=== PATIENT | male | born 1960 | race Two or more races ===

== ENCOUNTER → 2019-01-31 | Outpatient (CLI) | payer OTHER ==
[2019-01-31 08:43] LABS: ALBUMIN 3.8 g/dL (3.4-5.0); ALBUMIN/GLOBULIN RATIO 1.1 (1.0-1.7); CALCIUM 9.7 mg/dL (8.5-10.1); CHOLESTEROL/HDL RATIO 3.1; CREATININE 0.9 mg/dL (0.7-1.3); TOTAL BILIRUBIN 0.3 mg/dL (0.2-1.0); TOTAL PROTEIN 7.3 g/dL (6.4-8.2)
[2019-02-01 01:12] LABS: HEMOGLOBIN A1C 7.4 % (4.8-5.6)
== END | disposition home or self-care (01) ==
LOC: LAB 07:32
PROVIDERS: ATTEND Internal Medicine
DX: E11.65 Type 2 diabetes mellitus with hyperglycemia (principal)
CPT/HCPCS: 36415; 80053; 80061; 83036

== ENCOUNTER → 2019-06-23 | Outpatient (CLI) | payer OTHER, MEDICAID ==
--- NOTE | 2019-06-23 12:15 | RAD ---
EXAM: Right hip, 2 views; lumbar spine, 3 views. HISTORY: Pain. COMPARISON: None. FINDINGS: Right hip: Frontal and frog-leg views of the right hip are obtained. There is no fracture, dislocation or subluxation. There is mild marginal superior acetabular spurring. Lumbar spine: 3 views of the lumbar spine are obtained. There is minimal lumbar dextrocurvature. There is no significant listhesis. The vertebral bodies are normal in height and the disc spaces are preserved. There is minimal endplate remodeling and there few small endplate Schmorl's nodes. IMPRESSION: 1. No acute osseous finding. 2. Mild degenerative change involving the lumbar spine and mild right hip osteoarthritis. Electronically signed by: Haley Chance MD (06/23/2019 12:11 PM) [facility]
== END | disposition home or self-care (01) ==
LOC: RAD 08:21
PROVIDERS: ATTEND Internal Medicine
DX: M47.816 Spondylosis without myelopathy or radiculopathy, lumbar region (principal); M16.11 Unilateral primary osteoarthritis, right hip; M76.9 Unspecified enthesopathy, lower limb, excluding foot; M51.46 Schmorl's nodes, lumbar region
CPT/HCPCS: 72100; 73502

== ENCOUNTER → 2019-07-11 | Outpatient (CLI) | payer OTHER, MEDICAID ==
--- NOTE | 2019-07-11 12:41 | RAD ---
CT LOWER EXTREMITY WO RIGHT Indication: Right hip pain. Exposure: One or more of the following individualized dose reduction techniques were utilized for this examination: 1. Automated exposure control 2. Adjustment of the mA and/or kV according to patient size 3. Use of iterative reconstruction technique. Technique: Standard imaging without intravenous contrast. Findings: No evidence of acute fracture or aggressive bone destruction. Mild degenerative changes of the right hip. The visualized soft tissues demonstrate no obvious acute abnormality. IMPRESSION: 1. Mild degenerative changes at the right hip. 2. No definite acute findings. 3. Consider MRI of the right hip for further evaluation, particularly if symptoms do not resolve. Electronically signed by: Stephan Floyd MD (07/11/2019 12:38 PM) [facility]
== END | disposition home or self-care (01) ==
LOC: CT 11:06
PROVIDERS: ATTEND Internal Medicine
DX: M16.11 Unilateral primary osteoarthritis, right hip (principal); Z79.899 Other long term (current) drug therapy
CPT/HCPCS: 73700

== ENCOUNTER → 2019-11-12 | Outpatient (CLI) | payer OTHER, MEDICAID ==
--- NOTE | 2019-11-12 14:38 | KCIC ---
Left lower extremity venous duplex study Clinical History: Lower extremity pain Technique: Using a combination of real time ultrasound imaging and color-flow and pulse Doppler imaging techniques, including spectral analysis, graded compression and augmentation, duplex evaluation of the deep venous system of the left lower extremity was performed. Multiple images were obtained. Findings: There is no sonographic evidence of deep venous thrombosis involving the visualized deep venous structures of the left lower extremity Impression: No evidence of deep venous thrombosis involving the left lower extremity Electronically signed by: Rick Bradley MD (11/12/2019 2:35 PM) [facility]
== END | disposition home or self-care (01) ==
LOC: KCIC US 13:35
PROVIDERS: ATTEND Internal Medicine
DX: M79.605 Pain in left leg (principal); M79.89 Other specified soft tissue disorders
CPT/HCPCS: 93971

== ENCOUNTER → 2021-01-06 | Outpatient (CLI) | payer OTHER, MEDICAID ==
[2021-01-06 08:44] LABS: BASO % 1 % (0-3); EOS # 0.1 x10^3/uL (0.0-0.7); EOS % 2 % (0-3); HEMATOCRIT 38.7 % (39.0-53.0); HEMOGLOBIN 12.9 g/dL (13.0-17.5); LYMPH # 1.4 x10^3/uL (1.0-4.8); LYMPH % 30 % (24-48); MEAN CORPUSCULAR HEMOGLOBIN 28 pg (25-35); MEAN CORPUSCULAR HGB CONC 33 g/dL (31-37); MEAN CORPUSCULAR VOLUME 84 fL (79-100); MONO # 0.5 x10^3/uL (0.0-1.1); MONO % 10 % (0-9); NEUT # 2.6 x10^3/uL (1.8-7.7); NEUT % 57 % (31-73); PLATELET COUNT 147 x10^3/uL (140-400); RED CELL DISTRIBUTION WIDTH 15.4 % (11.5-14.5); WHITE BLOOD COUNT 4.6 x10^3/uL (4.0-11.0)
[2021-01-06 08:58] LABS: ALBUMIN 3.7 g/dL (3.4-5.0); ALBUMIN/GLOBULIN RATIO 0.9 (1.0-1.7); CALCIUM 9.7 mg/dL (8.5-10.1); GFR 76.5; POTASSIUM 4.7 mmol/L (3.5-5.1); TOTAL BILIRUBIN 0.3 mg/dL (0.2-1.0); TOTAL PROTEIN 7.6 g/dL (6.4-8.2)
[2021-01-06 09:26] LABS: % BANDS 4 % (0-9); % EOS 3 % (0-5); % LYMPHS 24 % (24-48); % MONOS 10 % (0-10); % MYELOS 1 % (0-0); % SEGS 58 % (35-66); ANISOCYTOSIS PRESENT; NUCLEATED RBC 1; PLT ESTIMATE ADEQUATE (ADEQUATE)
[2021-01-06 23:15] LABS: HEMOGLOBIN A1C 7.5 % (4.8-5.6)
== END ==
LOC: LAB 08:14
PROVIDERS: ATTEND Podiatrist
DX: L03.115 Cellulitis of right lower limb (principal)
CPT/HCPCS: 36415; 80053; 83036; 85007; 85025

== ENCOUNTER → 2021-01-12 | Outpatient (CLI) | payer OTHER, MEDICAID | LOC: SPEC 16:11 | PROVIDERS: ATTEND Podiatrist | DX: L03.031 Cellulitis of right toe (principal) | CPT/HCPCS: 87071; 87075 ==

== ENCOUNTER 2021-03-05 23:10 | Emergency (ER) | payer OTHER, MEDICAID ==
[~2021-03-05] VITALS: Ht 167.6 cm; Wt 95.4 kg
[2021-03-06 00:35] LABS: BASO % 1 % (0-3); EOS % 0 % (0-3); HEMOGLOBIN 14.6 g/dL (13.0-17.5); LYMPH # 0.3 x10^3/uL (1.0-4.8); LYMPH % 10 % (24-48); MEAN CORPUSCULAR HEMOGLOBIN 28 pg (25-35); MEAN CORPUSCULAR HGB CONC 33 g/dL (31-37); MEAN CORPUSCULAR VOLUME 85 fL (79-100); MONO # 0.3 x10^3/uL (0.0-1.1); MONO % 12 % (0-9); NEUT # 2.2 x10^3/uL (1.8-7.7); NEUT % 78 % (31-73); PLATELET COUNT 146 x10^3/uL (140-400); RED BLOOD COUNT 5.18 x10^6/uL (4.30-5.70); RED CELL DISTRIBUTION WIDTH 15.8 % (11.5-14.5); WHITE BLOOD COUNT 2.8 x10^3/uL (4.0-11.0)
[2021-03-06 01:03] LABS: CALCIUM 9.7 mg/dL (8.5-10.1); CREATININE 1.2 mg/dL (0.7-1.3); POTASSIUM 3.8 mmol/L (3.5-5.1)
[2021-03-06 01:09] LABS: ALBUMIN/GLOBULIN RATIO 1.1 (1.0-1.7); MAGNESIUM 2.3 mg/dL (1.8-2.4); TOTAL BILIRUBIN 0.4 mg/dL (0.2-1.0); TOTAL PROTEIN 7.8 g/dL (6.4-8.2)
[2021-03-06 01:20] LABS: BILIRUBIN,URINE NEGATIVE (NEG); CLARITY,URINE CLEAR; COLOR,URINE STRAW; NITRITE,URINE NEGATIVE (NEG); PH,URINE 5.5 (<5.0-8.0); PROTEIN,URINE NEGATIVE (NEG-TRACE); UROBILINOGEN,URINE 0.2 mg/dL (0.2 mg/dL)
[2021-03-06 01:21] LABS: BACTERIA,URINE 0 /HPF (0-FEW)
--- NOTE | 2021-03-06 01:21 | PHYS DOC ---
General Adult EDM: Chief Complaint: NAUSEA/VOMITING/DIARRHEA HPI: HPI: Patient is a 60 year old [f__sex] who presents with [] Review of Systems: Review of Systems: Constitutional: Denies fever or chills. [] Eyes: Denies change in visual acuity. [] HENT: Denies nasal congestion or sore throat. [] Respiratory: Denies cough or shortness of breath. [] Cardiovascular: Denies chest pain or edema. [] GI: Denies abdominal pain, nausea, vomiting, bloody stools or diarrhea. [] : Denies dysuria. [] Musculoskeletal: Denies back pain or joint pain. [] Integument: Denies rash. [] Neurologic: Denies headache, focal weakness or sensory changes. [] Endocrine: Denies polyuria or polydipsia. [] Lymphatic: Denies swollen glands. [] Psychiatric: Denies depression or anxiety. [] Heart Score: Risk Factors: Risk Factors: DM, Current or recent (<one month) smoker, HTN, HLP, family history of CAD, obesity. Risk Scores: Score 0 - 3: 2.5% MACE over next 6 weeks - Discharge Home Score 4 - 6: 20.3% MACE over next 6 weeks - Admit for Clinical Observation Score 7 - 10: 72.7% MACE over next 6 weeks - Early Invasive Strategies Current Medications: Current Medications Medications (Trade) Dose Ordered Sig/George Start Time Stop Time Status Last Admin Dose Admin Famotidine (Pepcid Vial) 20 mg 1X ONCE 03/06/21 01:30 03/06/21 01:31 Info (CONTRAST GIVEN -- Rx MONITORING) 1 each PRN DAILY PRN 03/06/21 01:30 03/08/21 01:29 Iohexol (Omnipaque 300 Mg/ml) 75 ml 1X ONCE 03/06/21 01:30 03/06/21 01:31 Ondansetron HCl (Zofran) 4 mg 1X ONCE 03/06/21 01:30 03/06/21 01:31 Sodium Chloride 1,000 ml @ 1,000 mls/hr 1X ONCE 03/06/21 01:30 03/06/21 02:29 Allergies: Allergies: Allergies Coded Allergies Type Severity Reaction Last Updated Verified No Known Drug Allergies 03/06/21 No Physical Exam: PE: Constitutional: Well developed, well nourished, no acute distress, non-toxic appearance. [] HENT: Normocephalic, atraumatic, bilateral external ears normal, oropharynx moist, no oral exudates, nose normal. [] Eyes: PERRLA, EOMI, conjunctiva normal, no discharge. [] Neck: Normal range of motion, no tenderness, supple, no stridor. [] Cardiovascular:Heart rate regular rhythm, no murmur [] Lungs & Thorax: Bilateral breath sounds clear to auscultation [] Abdomen: Bowel sounds normal, soft, no tenderness, no masses, no pulsatile masses. [] Skin: Warm, dry, no erythema, no rash. [] Back: No tenderness, no CVA tenderness. [] Extremities: No tenderness, no cyanosis, no clubbing, ROM intact, no edema. [] Neurologic: Alert and oriented X 3, normal motor function, normal sensory function, no focal deficits noted. [] Psychologic: Affect normal, judgement normal, mood normal. [] Current Patient Data: Labs: Laboratory Tests Test 03/06/21 00:00 White Blood Count 2.8 x10^3/uL (4.0-11.0) L Red Blood Count 5.18 x10^6/uL (4.30-5.70) Hemoglobin 14.6 g/dL (13.0-17.5) Hematocrit 44.0 % (39.0-53.0) Mean Corpuscular Volume 85 fL (79-100) Mean Corpuscular Hemoglobin 28 pg (25-35) Mean Corpuscular Hemoglobin Concent 33 g/dL (31-37) Red Cell Distribution Width 15.8 % (11.5-14.5) H Platelet Count 146 x10^3/uL (140-400) Neutrophils (%) (Auto) 78 % (31-73) H Lymphocytes (%) (Auto) 10 % (24-48) L Monocytes (%) (Auto) 12 % (0-9) H Eosinophils (%) (Auto) 0 % (0-3) Basophils (%) (Auto) 1 % (0-3) Neutrophils # (Auto) 2.2 x10^3/uL (1.8-7.7) Lymphocytes # (Auto) 0.3 x10^3/uL (1.0-4.8) L Monocytes # (Auto) 0.3 x10^3/uL (0.0-1.1) Eosinophils # (Auto) 0.0 x10^3/uL (0.0-0.7) Basophils # (Auto) 0.0 x10^3/uL (0.0-0.2) Laboratory Tests 03/06/21 00:00 EKG: EKG: @0050 Sinus tachycardia at 118bpm, NO ST elevation, QRS 110ms, QT/QTc 318/448ms, LAFB Radiology/Procedures: Radiology/Procedures: [] Course & Med Decision Making: Course & Med Decision Making Pertinent Labs and Imaging studies reviewed. (See chart for details) [] Dragon Disclaimer: DragMake My plate Disclaimer: This electronic medical record was generated, in whole or in part, using a voice recognition dictation system. Departure Departure Impression: Primary Impression: Nausea vomiting and diarrhea Additional Impressions: Thyroid nodule Incidental adrenal cortical adenoma Abnormal finding on radiology exam Lactic acidosis Disposition: HOME / SELF CARE / HOMELESS Condition: STABLE Referrals: JASMIN CHO MD (PCP) DIAZ NORMAN MD Patient Instructions: Clear Liquid Diet, Ggkh-kq-[id number], Diarrhea, Ofto-yw-Tcpu, Diet for Diarrhea, Adult, Incidental Abnormal Radiological Finding, Lactic Acid, Lactate, Nausea and Vomiting, Inaf-sy-Ujxl, Viral Gastroenteritis, Cbag-qc-Ighi Additional Instructions: Please give copy of CT results to your doctor for future re-evaluation of thyroid nodule, liver lesions, and adrenal adenoma. Scripts Famotidine (PEPCID) 20 Mg Tablet 20 MG PO BID, #14 TAB Prov: DEBRA SILVER DO 03/06/21 Ondansetron (ONDANSETRON ODT) 4 Mg Tab.rapdis 1 TAB PO PRN Q6-8HRS PRN for NAUSEA, #16 TAB Prov: DEBRA SILVER DO 03/06/21 DEBRA SILVER DO Mar 06, 2021 01:21
[2021-03-06] MEDS ORDERED: ONDANSETRON PF 4 MG/2 ML VIAL. IVP ONE (01:30)
[2021-03-06] MEDS ORDERED: CONTRAST GIVEN. MC PRN (01:30)
[2021-03-06] MEDS ORDERED: IOHEXOL 300 MG/ML 100ML VIAL. IV ONE (01:30)
[2021-03-06] MEDS ORDERED: IV NORMAL SALINE 1000ML BAG 1,000 ML IV ONE (01:30)
[2021-03-06] MEDS ORDERED: FAMOTIDINE 20 MG/2 ML VIAL IVP ONE (01:30)
--- NOTE | 2021-03-06 02:00 | EKG ---
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
--- NOTE | 2021-03-06 02:29 | RAD ---
CT CHEST+ABD+PELVIS W History: Cough. Fever. Abdominal pain. Technique: CT of the chest, abdomen and pelvis were performed with intravenous contrast. Coronal and sagittal reconstructions were performed. Exposure: One or more of the following individualized dose reduction techniques were utilized for thi s examination: 1. Automated exposure control 2. Adjustment of the mA and/or kV according to patient size 3. Use of iterative reconstruction technique. Comparison: None Findings: Chest: Right thyroid nodule measures 1.1 cm. Small hiatal hernia. Small mediastinal lymph nodes. Athe romatous plaque within the aorta. Coronary artery calcifications. No consolidation. Tiny right pleural effusion. No pneumothorax. Scattered linear atelectasis. Calcifi ed right middle lobe pulmonary nodule, likely prior granulomatous disease. Abdomen and pelvis: Small hepatic hypodensities largest within the right posterior hepatic lobe measu res 0.7 cm. The spleen, pancreas and gallbladder are unremarkable. No biliary ductal dilatation. Smal l right adrenal myelolipoma measures 0.9 cm. Right renal cyst measures 1.4 cm. No hydronephrosis. Moderate proximal and mid colonic stool burden. Normal appendix. No evidence of bowel obstruction. No pathologic lymphadenopathy. No ascites. Mild atheromatous plaque within the nonaneurysmal abdominal aorta and branch vessels. Bones: No pathologic osseous lesions. Impression: Chest CT: 1. No acute thoracic pathology. 2. Scattered linear atelectasis. 3. Right thyroid nodule. Abdomen and pelvis CT: 1. No acute abdominal or pelvic pathology. 2. Small right hepatic lobe hypodensities, likely benign cysts or hemangiomas in the absence of conc wolfgang for malignancy. Electronically signed by: Jorge Tay DO (03/06/2021 2:27 AM) [facility]
[2021-03-06] MEDS ORDERED: ONDA4TAB12 PO (02:54)
[2021-03-06] MEDS ORDERED: FAMO-63 PO (02:54)
[2021-03-06 03:02] VITALS: BP 121/59
== END 2021-03-06 03:24 | disposition home or self-care (01) ==
LOC: ER 23:10
DX: D35.00 Benign neoplasm of unspecified adrenal gland (principal); R11.2 Nausea with vomiting, unspecified; R19.7 Diarrhea, unspecified; E04.1 Nontoxic single thyroid nodule; R93.89 Abnormal findings on diagnostic imaging of other specified body structures; E87.2 Acidosis
CPT/HCPCS: 36415; 71260; 74177; 80053; 81001; 82553; 83605; 83690; 83735; 84484; 85025; 93005; 96361; 96374; 96375; 99285; J2405; J3490; J7030; Q9967

== ENCOUNTER → 2021-04-22 | Outpatient (CLI) | payer OTHER, MEDICAID ==
[~2021-04-22] MED LIST: FAMO-63 PO; ONDA4TAB12 PO
[2021-04-22 08:05] LABS: BASO % 1 % (0-3); EOS # 0.1 x10^3/uL (0.0-0.7); EOS % 2 % (0-3); HEMATOCRIT 38.5 % (39.0-53.0); HEMOGLOBIN 12.6 g/dL (13.0-17.5); LYMPH # 1.2 x10^3/uL (1.0-4.8); LYMPH % 27 % (24-48); MEAN CORPUSCULAR HEMOGLOBIN 28 pg (25-35); MEAN CORPUSCULAR HGB CONC 33 g/dL (31-37); MEAN CORPUSCULAR VOLUME 85 fL (79-100); MONO # 0.5 x10^3/uL (0.0-1.1); MONO % 10 % (0-9); NEUT # 2.7 x10^3/uL (1.8-7.7); NEUT % 61 % (31-73); PLATELET COUNT 140 x10^3/uL (140-400); RED BLOOD COUNT 4.51 x10^6/uL (4.30-5.70); RED CELL DISTRIBUTION WIDTH 15.2 % (11.5-14.5); WHITE BLOOD COUNT 4.5 x10^3/uL (4.0-11.0)
[2021-04-22 08:24] LABS: ALBUMIN 3.6 g/dL (3.4-5.0); ALK PHOS 49 U/L (46-116); ALT (SGPT) 22 U/L (16-63); ANION GAP 11 (6-14); AST (SGOT) 11 U/L (15-37); BLOOD UREA NITROGEN 17 mg/dL (8-26); BUN/CREATININE RATIO 21 (6-20); CALCIUM 9.7 mg/dL (8.5-10.1); CARBON DIOXIDE 27 mmol/L (21-32); CHLORIDE 100 mmol/L (98-107); CHOLESTEROL 175 mg/dL (0-200); CREATININE 0.8 mg/dL (0.7-1.3); GFR 98.9; GLUCOSE 284 mg/dL (70-99); HDLC 55 mg/dL (40-60); LDLC 52 mg/dL (0-100); POTASSIUM 4.2 mmol/L (3.5-5.1); SODIUM 138 mmol/L (136-145); TOTAL BILIRUBIN 0.2 mg/dL (0.2-1.0); TOTAL PROTEIN 7.1 g/dL (6.4-8.2); TRIGLYCERIDES 342 mg/dL (0-150); VLDLC 68 mg/dL (0-40)
[2021-04-22 08:26] LABS: CHOLESTEROL/HDL RATIO 3.2; VAL ACID 66 mcg/mL (50-100)
[2021-04-22 09:10] LABS: % BANDS 2 % (0-9); % EOS 2 % (0-5); % LYMPHS 24 % (24-48); % MONOS 7 % (0-10); % SEGS 65 % (35-66)
[2021-04-22 09:11] LABS: PLT ESTIMATE ADEQUATE (ADEQUATE)
[2021-04-23 01:17] LABS: HEMOGLOBIN A1C 8.7 % (4.8-5.6)
== END ==
LOC: LAB 07:24
DX: F25.0 Schizoaffective disorder, bipolar type (principal); Z79.899 Other long term (current) drug therapy
CPT/HCPCS: 36415; 80053; 80061; 80164; 83036; 85007; 85025

== ENCOUNTER 2021-09-19 09:26 | Inpatient (IN) | payer OTHER, MEDICAID ==
[~2021-09-19] VITALS: Ht 177.8 cm; Wt 125.0 kg
--- NOTE | 2021-09-19 09:34 | PHYS DOC ---
Past Medical History Past Medical History: Bipolar, Diabetes-Type II, High Cholesterol, Hypert ension, Schizophrenia Past Surgical History: No Surgical History Smoking Status: Former Smoker Alcohol Use: None Drug Use: None General Adult EDM: Chief Complaint: WEAKNESS/GENERALIZED HPI: HPI: Patient is a 61 year old male who presents with generalized malaise, generalized fatigue, generalized weakness, fevers and chills. He received his Covid booster vaccine 3 days ago. He reports having left-sided hip pain, he is unable to articulate how long he has had Anuja he denies any trauma or injury. Denies open wounds or skin redness of the hip. He is able to bear weight. He denies abdominal pain, nausea, vomiting, diarrhea, constipation he denies urinary symptoms. He denies cough, dyspnea, chest pain. He denies headache or dizziness. He denies fall or head injury. He denies syncope. He denies focal weakness. He is a relatively poor historian. He has chronic mental illness/schizophrenia. He is cared for by his sister. His sister does assist with history taking. He has reportedly been compliant with routine prescribed medications. He has not taken any antipyretics today. His fever began yesterday, he took a dose of ibuprofen yesterday, none taken today, no Tylenol today. Review of Systems: Review of Systems: Constitutional: Fever and chills. Generalized weakness, malaise. Eyes: Denies change in visual acuity. [] HENT: Denies nasal congestion or sore throat. [] Respiratory: Denies cough or shortness of breath. [] Cardiovascular: Denies chest pain or edema. [] GI: Denies abdominal pain, nausea, vomiting or diarrhea. : Denies urinary symptoms. Musculoskeletal: Denies back pain or joint pain. [] Integument: Denies rash. [] Neurologic: Denies headache, focal weakness or sensory changes. [] Endocrine: Denies polyuria or polydipsia. Chronic diabetes mellitus, reportedly well controlled. No report of recent hyperglycemia. Lymphatic: Denies swollen glands. [] Psychiatric: Chronic mood disturbance, schizophrenia. No reported acute behavior changes.[] Heart Score: C/O Chest Pain: No Risk Factors: Risk Factors: DM, Current or recent (<one month) smoker, HTN, HLP, family history of CAD, obesity. Risk Scores: Score 0 - 3: 2.5% MACE over next 6 weeks - Discharge Home Score 4 - 6: 20.3% MACE over next 6 weeks - Admit for Clinical Observation Score 7 - 10: 72.7% MACE over next 6 weeks - Early Invasive Strategies Allergies: Allergies: Allergies Coded Allergies Type Severity Reaction Last Updated Verified No Known Drug Allergies 03/06/21 No Physical Exam: PE: Constitutional: Well developed, well nourished, no acute distress, non-toxic appearance. Chronically ill appearing. HENT: Normocephalic, atraumatic, oropharynx is patent and clear, mucous membranes are moist. No oropharyngeal exudate or erythema Eyes: PERRL, EOMI, conjunctiva normal, no discharge. Sclera are clear and anicteric. Neck: Normal range of motion, no tenderness, supple, no stridor. Trachea is midline. No meningismus Cardiovascular: Tachycardic, regular, rate in the low 100s, +2 radial and +2 posterior tibial pulses bilaterally. Lungs & Thorax: Lungs are clear to auscultation bilaterally, no rales, rhonchi or wheezes. Mildly diminished breath sounds in bilateral bases, occasional poor respiratory effort with deep inspiration on part of the patient. No tachypnea, no retractions. No evidence of distress Abdomen: Abdomen is obese, soft, nontender to palpation, no palpable masses organomegaly, no CVA tenderness, no flank or abdominal ecchymoses. No palpable pulsatile mass Skin: Warm, dry, no erythema, no rash. No jaundice. No open wounds or lacerations. Back: No tenderness, no CVA tenderness. No deformity of the spine. No midline or paraspinal soft tissue tenderness. Full range of motion. Extremities: No tenderness, no cyanosis, no clubbing, ROM intact. Bilateral lower extremity venous stasis changes. Symmetric, 1+ bilateral lower extremity pitting edema. No calf tenderness. Painless range of motion. Pelvis is stable. No tenderness with palpation of the left hip, no pain or tenderness with active or active range of motion of the left hip. No overlying warmth or erythema, no palpable crepitus or step-offs. Neurologic: He is awake, alert, conversant. He is oriented x3. No facial asymmetry. Speech is fluent. 5 out of 5 motor strength bilateral upper extremities. Bilateral, symmetric lower extremity weakness, sensation is grossly intact. Psychologic: Affect is flat. He is cooperative. [] EKG: EKG: EKG is interpreted at 0938 rhythm is sinus tachycardia Rate is 110 bpm [place] is left No STEMI Radiology/Procedures: Radiology/Procedures: IMAGING REPORT Signed PATIENT: NEIL OAKESUNT: [id number] : 1960 LOCATION: ER AGE: 61 SEX: M EXAM STATUS: REG ER ORD. PHYSICIAN: KAYLI DENNIS DO REASON: weakness PROCEDURE: CT HEAD WO CONTRAST Exam Date: 09/19/2021 10:[address] HEAD/BRAIN WO Indication: Reason: weakness / Spl. Instructions: / History: . TECHNIQUE: Head CT was performed without intravenous contrast. One or more of the following dose reduction techniques were utilized: *Automated exposure control (AEC) *Adjustment of mA and/or kV according to patient size *Use of iterative reconstruction technique *CT scan done according to ALARA, or ALARA/IMAGE GENTLY FINDINGS: The ventricles and sulci are prominent consistent with cerebral volume loss. Patchy ill-defined low attenuation areas in the subcortical and periventricular white matter bilaterally are consistent with microvascular disease. There is no evidence of acute intracranial hemorrhage, extra-axial collection, mass effect, midline shift, or acute territorial infarct. No lesion of the skull base or the calvarium is seen. The visualized paranasal sinuses, right mastoid air cells and orbits are normal in appearance. There is partial opacification of the left posterior mastoid air cells with partial erosion of the bony margins. Findings suggest an underlying lesion of this site. IMPRESSION: No evidence for acute intracranial abnormality. Volume loss and microvascular disease. Partial opacification of the left posterior mastoid air cells with partial erosion of the bony margins, suggestive of an underlying mass lesion or possibly vascular malformation. Further workup with nonemergent MRI with and without contrast is recommended. Electronically signed by: Fuad Blank MD (09/19/2021 11:08 AM) [id number] DICTATED and SIGNED BY: FUAD BLANK MD DATE: 09/19/21 [id number] IMAGING REPORT Signed PATIENT: NEIL OAKESUNT: [id number] : 1960 LOCATION: ER AGE: 61 SEX: M EXAM STATUS: REG ER ORD. PHYSICIAN: KAYLI DENNIS DO REASON: left hip pain PROCEDURE: PORTABLE CHEST 1V EXAM: Chest, single view. HISTORY: Pain. COMPARISON: None. FINDINGS: A frontal view of the chest is obtained. There is mild diffuse increased interstitial opacity. There is no consolidation, pleural effusion or pneumothorax. There are calcified granulomas. The heart is normal in size for portable technique. IMPRESSION: Diffuse increased interstitial opacity likely due to atelectasis. No consolidated infiltrate is seen. Electronically signed by: Haley Peng MD (09/19/2021 11:13 AM) [id number] DICTATED and SIGNED BY: HALEY PENG MD DATE: 09/19/21 [id number] IMAGING REPORT Signed PATIENT: NEIL OAKESUNT: [id number] : 1960 LOCATION: ER AGE: 61 SEX: M EXAM STATUS: REG ER ORD. PHYSICIAN: KAYLI DENNIS DO REASON: left hip pain PROCEDURE: HIP LEFT 1 VIEW WITH PELVIS EXAM: Pelvis and left hip, 3 views. HISTORY: Pain. COMPARISON: None. FINDINGS: A frontal view of the pelvis and 2 views of the left hip are obtained. There is no fracture, dislocation or subluxation. The femoral heads are normal in configuration. IMPRESSION: No acute osseous finding. Electronically signed by: Haley Peng MD (09/19/2021 11:12 AM) [id number] DICTATED and SIGNED BY: HALEY PENG MD DATE: 09/19/21 [id number] Course & Med Decision Making: Course & Med Decision Making Pertinent Labs and Imaging studies reviewed. (See chart for details) I discussed the findings, differential diagnosis and plan of care with the patient as well as with his sister. The patient is unable to get up and walk. He is given IV fluids and p.o. Tylenol. Fevers resolved. He is asking for food and drink, this was provided to him. He requested something for his hip pain, he is given a dose of IV fentanyl. His sister reports that she is not nebula to be at home with him secondary to having to be at work all day, and her son was able to help him get up and walk today. He lives in their home, downstairs, and if he is unable to walk and care for himself there, it would not be safe to send him back home. She is comfortable with the plan for admission, the patient is comfortable with this plan. Dr. Cho is contacted, he accepts the patient for admission. Tha Disclaimer: Tha Disclaimer: This electronic medical record was generated, in whole or in part, using a voice recognition dictation system. Departure Departure Impression: Primary Impression: Generalized weakness Additional Impressions: Fever Diabetes mellitus Abnormal head CT Disposition: ADMITTED INPATIENT Admitting Physician: Doug Cho Condition: STABLE Referrals: DOUG CHO MD (PCP) KAYLI DENNIS DO Sep 19, 2021 09:34
[2021-09-19 10:00] LABS: BASO % 0 % (0-3); EOS % 0 % (0-3); HEMATOCRIT 35.9 % (39.0-53.0); HEMOGLOBIN 11.8 g/dL (13.0-17.5); LYMPH # 0.6 x10^3/uL (1.0-4.8); LYMPH % 6 % (24-48); MEAN CORPUSCULAR HEMOGLOBIN 28 pg (25-35); MEAN CORPUSCULAR HGB CONC 33 g/dL (31-37); MEAN CORPUSCULAR VOLUME 86 fL (79-100); MONO # 1.7 x10^3/uL (0.0-1.1); MONO % 16 % (0-9); NEUT # 7.8 x10^3/uL (1.8-7.7); NEUT % 77 % (31-73); PLATELET COUNT 129 x10^3/uL (140-400); RED CELL DISTRIBUTION WIDTH 14.9 % (11.5-14.5); WHITE BLOOD COUNT 10.1 x10^3/uL (4.0-11.0)
[2021-09-19] MEDS ORDERED: IV NORMAL SALINE 1000ML BAG 1,000 ML IV ONE ×2 (10:00→15:15)
[2021-09-19] MEDS ORDERED: ACETAMINOPHEN 500 MG TABLET PO ONE (10:00)
[2021-09-19 10:12] LABS: CALCIUM 9.8 mg/dL (8.5-10.1); CREATININE 1.1 mg/dL (0.7-1.3); GFR 68.3; POTASSIUM 3.9 mmol/L (3.5-5.1)
[2021-09-19 10:18] LABS: ALBUMIN 3.4 g/dL (3.4-5.0); ALBUMIN/GLOBULIN RATIO 0.8 (1.0-1.7); MAGNESIUM 2.6 mg/dL (1.8-2.4); PHOSPHORUS 3.8 mg/dL (2.6-4.7); TOTAL BILIRUBIN 0.5 mg/dL (0.2-1.0); TOTAL PROTEIN 7.8 g/dL (6.4-8.2)
[2021-09-19 10:20] LABS: INFLUENZA A PATIENT NEGATIVE (NEGATIVE); INFLUENZA B PATIENT NEGATIVE (NEGATIVE)
[2021-09-19] MEDS ORDERED: fentaNYL PF VIAL 100 MCG/2 ML VIAL IVP ONE (11:00)
--- NOTE | 2021-09-19 11:10 | RAD ---
Exam Date: 09/19/2021 10:[address] HEAD/BRAIN WO Indication: Reason: weakness / Spl. Instructions: / History: . TECHNIQUE: Head CT was performed without intravenous contrast. One or more of the following dose re duction techniques were utilized: *Automated exposure control (AEC) *Adjustment of mA and/or kV according to patient size *Use of iterative reconstruction technique *CT scan done according to ALARA, or ALARA/IMAGE GENTLY FINDINGS: The ventricles and sulci are prominent consistent with cerebral volume loss. Patchy ill-defined low attenuation areas in the subcortical and periventricular white matter bilaterally are consistent with microvascular disease. There is no evidence of acute intracranial hemorrhage, extra-axial collecti on, mass effect, midline shift, or acute territorial infarct. No lesion of the skull base or the calv arium is seen. The visualized paranasal sinuses, right mastoid air cells and orbits are normal in [place]. There is partial opacification of the left posterior mastoid air cells with partial erosion of the bony margins. Findings suggest an underlying lesion of this site. IMPRESSION: No evidence for acute intracranial abnormality. Volume loss and microvascular disease. Partial opacification of the left posterior mastoid air cells with partial erosion of the bony margin s, suggestive of an underlying mass lesion or possibly vascular malformation. Further workup with no nemergent MRI with and without contrast is recommended. Electronically signed by: Jan Blank MD (09/19/2021 11:08 AM) [id number]
--- NOTE | 2021-09-19 11:15 | RAD ---
EXAM: Chest, single view. HISTORY: Pain. COMPARISON: None. FINDINGS: A frontal view of the chest is obtained. There is mild diffuse increased interstitial opaci ty. There is no consolidation, pleural effusion or pneumothorax. There are calcified granulomas. The heart is normal in size for portable technique. IMPRESSION: Diffuse increased interstitial opacity likely due to atelectasis. No consolidated infiltr ate is seen. Electronically signed by: Haley Chance MD (09/19/2021 11:13 AM) [id number]
--- NOTE | 2021-09-19 11:15 | RAD ---
EXAM: Pelvis and left hip, 3 views. HISTORY: Pain. COMPARISON: None. FINDINGS: A frontal view of the pelvis and 2 views of the left hip are obtained. There is no fracture , dislocation or subluxation. The femoral heads are normal in configuration. IMPRESSION: No acute osseous finding. Electronically signed by: Haley Chance MD (09/19/2021 11:12 AM) [id number]
[2021-09-19 13:13] LABS: BILIRUBIN,URINE NEGATIVE (NEG); CLARITY,URINE CLEAR; COLOR,URINE YELLOW; NITRITE,URINE NEGATIVE (NEG); PH,URINE 5.5 (<5.0-8.0); PROTEIN,URINE NEGATIVE (NEG-TRACE); UROBILINOGEN,URINE 0.2 mg/dL (0.2 mg/dL)
[2021-09-19 13:17] LABS: BACTERIA,URINE FEW /HPF (0-FEW); RBC,URINE 0 /HPF (0-2)
[2021-09-19] MEDS ORDERED: IBUPROFEN 400 MG TABLET. PO ONE (15:15)
[2021-09-19] MEDS ORDERED: ONDANSETRON PF 4 MG/2 ML VIAL. IVP PRN (15:15)
[2021-09-19] MEDS: INSULIN LISPRO 300 UNITS/3 ML VIAL. SQ SCH (17:22)
[2021-09-19 19:30] VITALS: BP 115/57
[2021-09-19] MEDS ORDERED: METF10007 PO (21:38)
[2021-09-19] MEDS ORDERED: CETI10TA16 PO (21:38)
[2021-09-19] MEDS ORDERED: ATEN50TA PO (21:38)
[2021-09-19] MEDS ORDERED: GLIM4TAB8 PO (21:38)
[2021-09-19] MEDS ORDERED: DIVA500T4 PO (21:38)
[2021-09-19] MEDS ORDERED: ATOR40TA59 PO (21:38)
[2021-09-19] MEDS ORDERED: DAPA10TA PO (21:38)
[2021-09-19] MEDS ORDERED: ICOS1CAP PO (21:38)
[2021-09-19] MEDS ORDERED: DULA0.75 SQ (21:38)
[2021-09-19] MEDS ORDERED: ARIP30TA4 PO (21:38)
[2021-09-19] MEDS ORDERED: ASPI-630 PO (21:38)
[2021-09-19] MEDS ORDERED: INSU100V37 SQ (21:38)
[2021-09-19] MEDS ORDERED: CLONAZEPAM1 MG PO (21:38)
[2021-09-19] MEDS ORDERED: SITA100T PO (21:38)
[2021-09-19] MEDS ORDERED: LISI-130 PO (21:38)
[2021-09-19] MEDS ORDERED: FENO145T3 PO (21:38)
[2021-09-19] MEDS ORDERED: QUET400T2 PO (21:38)
[2021-09-19] MEDS ORDERED: TRIA1CAP3 PO (21:38)
[2021-09-19] MEDS: FAMOTIDINE 20 MG TABLET. PO SCH (22:56)
[2021-09-19 23:53] VITALS: BP 115/56
[2021-09-20 03:26] VITALS: BP 113/57
--- NOTE | 2021-09-20 04:14 | EKG ---
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
[2021-09-20] MEDS: ACETAMINOPHEN 325 MG TABLET. PO PRN ×2 (06:08→21:31)
[2021-09-20] MEDS ORDERED: ONDANSETRON ODT 4 MG TAB.RAPDIS. PO PRN (06:30)
[2021-09-20 06:58] LABS: BASO % 0 % (0-3); EOS % 0 % (0-3); HEMATOCRIT 34.4 % (39.0-53.0); HEMOGLOBIN 11.3 g/dL (13.0-17.5); LYMPH # 0.8 x10^3/uL (1.0-4.8); LYMPH % 9 % (24-48); MEAN CORPUSCULAR HEMOGLOBIN 29 pg (25-35); MEAN CORPUSCULAR HGB CONC 33 g/dL (31-37); MEAN CORPUSCULAR VOLUME 87 fL (79-100); MONO # 1.1 x10^3/uL (0.0-1.1); MONO % 13 % (0-9); NEUT # 6.8 x10^3/uL (1.8-7.7); NEUT % 78 % (31-73); PLATELET COUNT 121 x10^3/uL (140-400); RED BLOOD COUNT 3.97 x10^6/uL (4.30-5.70); RED CELL DISTRIBUTION WIDTH 14.9 % (11.5-14.5); WHITE BLOOD COUNT 8.7 x10^3/uL (4.0-11.0)
[2021-09-20 07:00] VITALS: BP 121/57
[2021-09-20 07:06] LABS: CALCIUM 9.3 mg/dL (8.5-10.1); CREATININE 0.7 mg/dL (0.7-1.3); POTASSIUM 3.6 mmol/L (3.5-5.1)
[2021-09-20] MEDS ORDERED: metFORMIN 500 MG TABLET PO SCH (08:00)
[2021-09-20] MEDS: INSULIN LISPRO 300 UNITS/3 ML VIAL. SQ SCH ×3 (08:00→17:00)
[2021-09-20] MEDS: LINAGLIPTIN 5 MG TABLET PO SCH (08:45)
[2021-09-20] MEDS: LISINOPRIL 20 MG TABLET PO SCH (08:45)
[2021-09-20] MEDS: FAMOTIDINE 20 MG TABLET. PO SCH ×2 (08:45→21:31)
[2021-09-20] MEDS: FENOFIBRATE,MICRONIZED 134 MG CAPSULE PO SCH (08:45)
[2021-09-20] MEDS: ASPIRIN CHEWABLE 81 MG TABLET. PO SCH (08:46)
[2021-09-20] MEDS: ARIPiprazole 5 MG TABLET PO SCH (08:46)
[2021-09-20] MEDS: ATENOLOL 50 MG TABLET. PO SCH (08:46)
[2021-09-20] MEDS: CETIRIZINE HCL 10 MG TABLET. PO SCH (08:46)
[2021-09-20] MEDS: GLIMEPIRIDE 2 MG TABLET. PO SCH ×2 (08:46→21:32)
[2021-09-20] MEDS ORDERED: TRIAMTERENE/HCTZ 37.5/25MG TABLET. PO SCH (09:00)
[2021-09-20] MEDS: NON FORMULARY ITEM (Icosapent Ethyl (Vascepa) 2 GM) PO SCH ×2 (09:00→21:00)
[2021-09-20] MEDS: NON FORMULARY ITEM (Dapagliflozin Propanediol (Farxiga) 10 MG) PO SCH (09:00)
[2021-09-20] MEDS ORDERED: DULAGLUTIDE 0.5 MG SQ SCH (09:00)
--- NOTE | 2021-09-20 09:34 | PDOC ---
Provider Note Date of Service: DATE: 09/20/21 TIME: 09:32 Provider Note Pt seen.H&P Dictated.#[id number]. Justifications for Admission Other Justification JASMIN CHO MD Sep 20, 2021 09:34
[2021-09-20] MEDS ORDERED: IOHEXOL 300 MG/ML 100ML VIAL. IV ONE (09:45)
[2021-09-20] MEDS ORDERED: IOHEXOL 240 MG/ML 50ML VIAL. PO ONE (09:45)
--- NOTE | 2021-09-20 10:38 | HP ---
DATE OF SERVICE: 09/20/2021 ADMIT DATE: 09/19/2021 PATIENT LOCATION: 510. REASON FOR ADMISSION TO THE HOSPITAL: Fever, back pain, weakness. HISTORY OF PRESENT ILLNESS: The patient is a 61-year-old male patient with history of diabetes, bipolar, hypertension, hyperlipidemia, schizophrenia. The patient says he had a COVID vaccination on Sunday booster and then he was not feeling well after the shot, he was having fever, back pain, not able to get out of the bed. The patient was brought to the hospital and his white count was normal. CT head shows some mastoid inflammation and otherwise the patient was admitted to the hospital for further investigation and treatment. PAST MEDICAL HISTORY: History of diabetes, hypertension, hyperlipidemia, schizophrenia, bipolar. PAST SURGICAL HISTORY: No major surgeries. PERSONAL HISTORY: Former smoker. Denies alcohol, drug abuse. SOCIAL HISTORY: The patient lives at home with his sister. She works in a cafeteria in this hospital. REVIEW OF SYSTEMS: He has been having generalized body aches, back pain, not able to get out of the bed and he thinks these all started since he got the COVID booster on Sunday. ALLERGIES: No known drug allergies. MEDICATIONS: At home, the patient is on Abilify 30 mg daily, aspirin 81 mg daily, atenolol 50 mg daily, atorvastatin 40 mg daily, cetirizine 10 mg daily, clonazepam 1 mg daily, Farxiga 10 mg daily, Depakote 500 mg at bedtime, Trulicity 0.75 once a week injection, Pepcid 20 mg twice a day, fenofibrate 145 mg daily, glimepiride 4 mg twice a day, Vascepa 2 g twice a day, insulin Tresiba 35 units at bedtime, lisinopril 40 mg for hypertension, metformin 1000 mg twice a day, Zofran for nausea, Seroquel 400 mg tablet, he takes 800 mg at bedtime, Januvia 100 mg daily, triamterene/hydrochlorothiazide 1 daily. REVIEW OF SYMPTOMS: Complains of body aches, generalized weakness, fever. Rest of the 14-system was negative. PHYSICAL EXAMINATION: GENERAL: The patient is in bed. VITAL SIGNS: Temperature 101 on admission, now 100.6, pulse 110, respirations 20, blood pressure 120/57, oxygen saturation 92% on 2 liters. HEENT: Head is atraumatic. Pupils equal. Oral cavity, no congestion. The patient has bilateral hearing aids. NECK: Supple. Thyroid not enlarged. JVD not elevated. CHEST: Symmetrical. CARDIOVASCULAR: S1, S2. LUNGS: Clear. ABDOMEN: Soft. No mass palpable. EXTERNAL GENITALIA: Incontinence. RECTAL: Deferred. EXTREMITIES: No calf tenderness or no edema. The patient has chronic venous stasis dermatitis. NEUROLOGIC: Moving all extremities. No focal deficits noted. LABORATORY DATA: White count 10, hemoglobin 12, platelets 129. Electrolytes show sodium 135, potassium 3.9, chloride 98, bicarbonate 25, anion gap 12, BUN 28, creatinine 1.1, glucose 181. LFTs were normal. Urine shows glucose, small leukocyte esterase, 5-10 wbc's. COVID test screening and RNA test was negative. Flu test negative. Urine culture shows 30,000 normal susi. FINAL IMPRESSION: 1. Fever. 2. Body aches. 3. Diabetes. 4. Obesity. 5. Hypertension. 6. Schizophrenia. PLAN: At this time, he was admitted to the hospital. Chest x-ray shows atelectasis and CT head, no evidence of acute abnormality. He had some mastoid air cells opacification and x-ray of the pelvis, left hip, no fracture and the patient's ID is consulted, looks like more of a viral. We will have ultrasound of the kidneys just to make sure there are no kidney stones or anything causing problems. MOHSEN MCFARLAND: Flor TID: [id number] [facility]
[2021-09-20 11:00] VITALS: BP 176/79
--- NOTE | 2021-09-20 12:26 | CONS ---
DATE OF CONSULTATION: 09/20/2021 REFERRING PHYSICIAN: Doug Mccord MD. REASON FOR CONSULTATION: Fever. SOURCE OF INFORMATION: Chart and medical staff. HISTORY OF PRESENT ILLNESS: A 61-year-old male with history of schizophrenia, bipolar, diabetes mellitus, hypertension, hyperlipidemia, not a good historian, history obtained from chart and medical staff, who presented to the ER with generalized malaise, fatigue, fevers and chills. The patient had fever of 100.3. He received his last COVID booster vaccine 3 days ago prior to admission. He also had complaints of left hip pain. His CT head showed a partial opacification of the left posterior mastoid cells with partial erosion of the bony margin suggestive of underlying mass or possible vascular malformation. Chest x-ray revealed diffuse increased interstitial opacities likely due to atelectasis. Pelvic and the left hip x-ray did not show any acute osseous abnormalities. The patient was given IV fluids. He is currently not on any antibiotics. Fever resolved, so he was admitted to the floor for further evaluation and treatment. ID consultation has been requested for antibiotic management. Today, the patient answers only few questions. States he feels okay, on nasal O2 by 2 liters. He lives at home with his sister, who takes care of him as he is unable to take care of himself. He does say yes to headache. Otherwise, no to other problems. Discussed with nursing staff. PAST MEDICAL HISTORY: Diabetes, schizophrenia, bipolar, hypertension, hyperlipidemia as above. PAST SURGICAL HISTORY: As per HPI. PERSONAL HISTORY: No smoking, no alcohol, no drug use. Lives with his sister, who works in a hospital cafeteria at [facility]. REVIEW OF SYSTEMS: Negative except for above in HPI, limited at this time. ALLERGIES: No known drug allergies. CURRENT MEDICATIONS: Antibiotics and other medications reviewed in medication list. PHYSICAL EXAMINATION: VITAL SIGNS: Temperature 100.6, pulse 110, respiratory rate 20, blood pressure 121/57, oxygen saturation 92% on 2 liters O2 by nasal cannula. GENERAL: Alert, awake male, on nasal O2. Comfortable, in no acute distress. HEENT: Normocephalic, atraumatic. Anicteric. Bilateral hearing aids. No sinus tenderness. NECK: Supple, no JVD, no lymphadenopathy. LUNGS: Clear bilaterally. No wheezing. HEART: S1, S2. No murmurs. ABDOMEN: Soft, nontender, nondistended, no rebound or guarding. EXTREMITIES: No edema, no cyanosis. DERMATOLOGIC: Warm, dry, no generalized rash. Chronic venous stasis, dermatitis present over both the lower extremities. NEUROLOGIC: Alert, awake, moves all 4 extremities. Answers the few questions. LABORATORY DATA: WBC 8.7, hemoglobin 11.3, hematocrit 34.4, platelets 121. Sodium 141, potassium 3.6, chloride 106, bicarbonate 23, BUN 21, creatinine 0.7, glucose 104. Lactate 0.9. LFTs normal. UA, 5-10 wbc's. SARS-COVID negative. Influenza screen negative. MICRO: Blood cultures 09/19 negative. Urine culture 30,000, CFU per mL, normal genital susi. IMAGING: Hip x-ray noted. CT head with opacification of the mastoid as above. Chest x-ray noted. No previous CT available to compare for CT head. IMPRESSION: 1. Fever could be viral 2. CT showing partial opacification of the left posterior mastoid air cells with partial erosion of the bony margins suggesting underlying mass lesion or possible vascular malformation. No previous CT for comparison. Mild headache letter will be viral 3. Status post COVID booster vaccine with the above symptoms. 4. Gram-positive cocci bacteremia in 1 out of 2 bottles present on admission could be contaminant 5. Diabetes mellitus. 6. Generalized myalgia and achiness. 7. Schizophrenia.Bipolar. 8. Hyperlipidemia. 9. Chronic back pain. RECOMMENDATIONS: 1. Start empiric Zosyn . Dose daptomycin. Repeat blood cultures in a.m. 2. Continue supportive care. 3. Monitor labs and cultures. Thank you, Dr. Mccord, for consulting Infectious Disease to participate in this patient's care. If you have any questions, do not hesitate to contact me. Discussed with nursing staff NATHAN/PABLO/SOL DR: NATHAN/krystle TID: [id number] MTDD
[2021-09-20] MEDS: IV NORMAL SALINE 1000ML BAG 1,000 ML IV SCH (12:29)
[2021-09-20] MEDS: PIPERACILLIN/TAZOBACTAM 3.375 GM in IV NORMAL SALINE 50ML 50 ML IV SCH ×2 (12:30→18:09)
--- NOTE | 2021-09-20 14:58 | RAD ---
EXAM: Abdomen and pelvis CT with intravenous contrast. HISTORY: Pain. Fever. TECHNIQUE: Computed tomographic images of the abdomen and pelvis were obtained following the administ ration of intravenous contrast. Multiplanar reformatting was performed. *One or more of the following individualized dose reduction techniques were utilized for this examina tion: 1. Automated exposure control. 2. Adjustment of the mA and/or kV according to patient size. 3. Use of iterative reconstruction technique. COMPARISON: 03/06/2021. FINDINGS: Evaluation of the lower thorax demonstrates partial right greater than left lower lobe cons olidation. There is cardiomegaly. There is calcified atherosclerotic plaque involving the coronary ar teries. There are prominent mediastinal and right hilar lymph nodes. There is a calcified granuloma w ithin the right upper lobe along the horizontal fissure. There is hepatomegaly and hepatic steatosis. There are small hypodense lesions within the liver, the largest of which measure 10 mm. The gallbladder, pancreas, spleen, adrenal glands and left kidney are unremarkable. There is a 2.1 cm simple right renal cyst. There is a prominent renal collecting syste m due to a distended urinary bladder. The prostate is unremarkable. There is no appendicitis. There i s a moderate to large amount of colonic stool. There is no evidence of bowel obstruction. There is no aortic aneurysm. There is no lymphadenopathy. There is no acute or suspicious osseous finding. IMPRESSION: 1. Moderate to large amount of colonic stool. Correlate for constipation. 2. Hepatomegaly and hepatic steatosis. 3. Small hypodense lesions within the liver. These are too small to characterize. In the absence of k nown malignancy, these are likely cysts or hemangiomas. Liver protocol MRI can be performed to confir m benignity if there is clinical concern. 4. Prominent right renal collecting system likely due to a distended urinary bladder. No obstructing lesion is seen. 5. Simple right renal cyst. Follow-up is not routinely performed for simple cysts. Electronically signed by: Haley Chance MD (09/20/2021 2:55 PM) [id number]
[2021-09-20 15:00] VITALS: BP 140/67
[2021-09-20 19:00] VITALS: BP 135/68
[2021-09-20] MEDS: DAPTOmycin (GENERIC) IVPB 570 MG in IV NORMAL SALINE 50ML 50 ML IV SCH (21:31)
[2021-09-20] MEDS: ATORVASTATIN CALCIUM 40 MG TABLET. PO SCH (21:31)
[2021-09-20] MEDS: LACTOBACILLUS RHAMNOSUS GG 1 CAPSULE. PO SCH (21:31)
[2021-09-20] MEDS: clonazePAM 0.5 MG TABLET PO PRN (21:32)
[2021-09-20] MEDS: DIVALPROEX EXTENDED RELEASE 500 MG TAB.ER.24H. PO SCH (21:32)
[2021-09-20] MEDS: QUEtiapine 100 MG TABLET. PO SCH (21:32)
[2021-09-20] MEDS: INSULIN GLARGINE SYRINGE. SQ SCH (21:40)
[2021-09-20 23:48] VITALS: BP 130/60
[2021-09-21] MEDS: IV NORMAL SALINE 1000ML BAG 1,000 ML IV SCH ×2 (00:32→13:36)
[2021-09-21] MEDS: PIPERACILLIN/TAZOBACTAM 3.375 GM in IV NORMAL SALINE 50ML 50 ML IV SCH ×4 (00:33→18:16)
[2021-09-21 03:25] VITALS: BP 125/65
[2021-09-21 03:32] LABS: BASO % 0 % (0-3); EOS % 0 % (0-3); HEMATOCRIT 33.5 % (39.0-53.0); LYMPH # 0.9 x10^3/uL (1.0-4.8); LYMPH % 11 % (24-48); MEAN CORPUSCULAR HEMOGLOBIN 28 pg (25-35); MEAN CORPUSCULAR HGB CONC 33 g/dL (31-37); MEAN CORPUSCULAR VOLUME 86 fL (79-100); MONO # 1.1 x10^3/uL (0.0-1.1); MONO % 14 % (0-9); NEUT # 5.8 x10^3/uL (1.8-7.7); NEUT % 74 % (31-73); PLATELET COUNT 135 x10^3/uL (140-400); RED CELL DISTRIBUTION WIDTH 14.4 % (11.5-14.5); WHITE BLOOD COUNT 7.9 x10^3/uL (4.0-11.0)
[2021-09-21 03:44] LABS: CALCIUM 9.1 mg/dL (8.5-10.1); CREATININE 0.8 mg/dL (0.7-1.3); GFR 98.6; POTASSIUM 3.6 mmol/L (3.5-5.1)
[2021-09-21 07:00] VITALS: BP 130/73
[2021-09-21] MEDS: INSULIN LISPRO 300 UNITS/3 ML VIAL. SQ SCH ×3 (08:00→17:00)
[2021-09-21] MEDS: NON FORMULARY ITEM (Icosapent Ethyl (Vascepa) 2 GM) PO SCH ×2 (09:00→21:00)
[2021-09-21] MEDS: NON FORMULARY ITEM (Dapagliflozin Propanediol (Farxiga) 10 MG) PO SCH (09:00)
[2021-09-21] MEDS: FENOFIBRATE,MICRONIZED 134 MG CAPSULE PO SCH (09:12)
[2021-09-21] MEDS: ASPIRIN CHEWABLE 81 MG TABLET. PO SCH (09:12)
[2021-09-21] MEDS: CETIRIZINE HCL 10 MG TABLET. PO SCH (09:12)
[2021-09-21] MEDS: GLIMEPIRIDE 2 MG TABLET. PO SCH ×2 (09:12→22:09)
[2021-09-21] MEDS: LACTOBACILLUS RHAMNOSUS GG 1 CAPSULE. PO SCH ×2 (09:12→22:07)
[2021-09-21] MEDS: ATENOLOL 50 MG TABLET. PO SCH (09:13)
[2021-09-21] MEDS: LINAGLIPTIN 5 MG TABLET PO SCH (09:13)
[2021-09-21] MEDS: FAMOTIDINE 20 MG TABLET. PO SCH ×2 (09:13→22:09)
[2021-09-21] MEDS: LISINOPRIL 20 MG TABLET PO SCH (09:14)
--- NOTE | 2021-09-21 09:18 | PDOC ---
PROGRESS NOTES Date of Service: DATE: 09/21/21 TIME: 09:17 Subjective Subjective feeling better ,still has low grade fever Objective Objective Vital Signs Date Time Temp Pulse Resp B/P (MAP) Pulse Ox O2 Delivery O2 Flow Rate FiO2 09/21/21 09:14 103 125/65 09/21/21 03:25 100.1 20 94 Nasal Cannula 4.0 100.1 Intake and Output 09/21/21 07:00 Intake Total 0 ml Output Total 2400 ml Balance -2400 ml Intake Oral 0 ml Output Urine Total 2400 ml Physical Exam Abdomen: Soft Heart: Normal S1, Normal S2 Extremities: No clubbing General: Alert HEENT: Atraumatic Lungs: Clear to auscultation MUSCULOSKELETAL: No swelling Neck: Supple Neuro: Normal speech Psych/Mental Status: Mental status NL Skin: No breakdown Diagnosis Problem List Problems Medical Problems: (1) Abnormal head CT Status: Acute (2) Diabetes mellitus Status: Acute (3) Fever Status: Acute (4) Generalized weakness Status: Acute Assessment Assessment Problems Medical Problems: (1) Abnormal head CT Status: Acute (2) Diabetes mellitus Status: Acute (3) Fever Status: Acute (4) Generalized weakness Status: Acute FINAL IMPRESSION: 1. Fever. 2. Body aches. 3. Diabetes. 4. Obesity. 5. Hypertension. 6. Schizophrenia. PLAN: positive blood c/s 1 in 2 gram positive labs ok CT scan abd and pelvis ok PT/OT IV Daptomycin+zosyn ID consult appreciated. At this time, he was admitted to the hospital. Chest x-ray shows atelectasis and CT head, no evidence of acute abnormality. He had some mastoid air cells opacification and x-ray of the pelvis, left hip, no fracture and the patient's ID is consulted, looks like more of a viral. We will have ultrasound of the kidneys just to make sure there are no kidney stones or anything causing problems. Plan Plan of Care Problems Medical Problems: (1) Abnormal head CT Status: Acute (2) Diabetes mellitus Status: Acute (3) Fever Status: Acute (4) Generalized weakness Status: Acute Comment Review of Relevant I have reviewed the following items jayleen (where applicable) has been applied. Labs Laboratory Tests Test 09/20/21 12:20 09/20/21 17:51 09/20/21 19:55 09/21/21 02:50 Glucose (Fingerstick) 177 mg/dL (70-99) 116 mg/dL (70-99) 141 mg/dL (70-99) White Blood Count 7.9 x10^3/uL (4.0-11.0) Red Blood Count 3.90 x10^6/uL (4.30-5.70) Hemoglobin 11.0 g/dL (13.0-17.5) Hematocrit 33.5 % (39.0-53.0) Mean Corpuscular Volume 86 fL (79-100) Mean Corpuscular Hemoglobin 28 pg (25-35) Mean Corpuscular Hemoglobin Concent 33 g/dL (31-37) Red Cell Distribution Width 14.4 % (11.5-14.5) Platelet Count 135 x10^3/uL (140-400) Neutrophils (%) (Auto) 74 % (31-73) Lymphocytes (%) (Auto) 11 % (24-48) Monocytes (%) (Auto) 14 % (0-9) Eosinophils (%) (Auto) 0 % (0-3) Basophils (%) (Auto) 0 % (0-3) Neutrophils # (Auto) 5.8 x10^3/uL (1.8-7.7) Lymphocytes # (Auto) 0.9 x10^3/uL (1.0-4.8) Monocytes # (Auto) 1.1 x10^3/uL (0.0-1.1) Eosinophils # (Auto) 0.0 x10^3/uL (0.0-0.7) Basophils # (Auto) 0.0 x10^3/uL (0.0-0.2) Sodium Level 137 mmol/L (136-145) Potassium Level 3.6 mmol/L (3.5-5.1) Chloride Level 103 mmol/L (98-107) Carbon Dioxide Level 23 mmol/L (21-32) Anion Gap 11 (6-14) Blood Urea Nitrogen 19 mg/dL (8-26) Creatinine 0.8 mg/dL (0.7-1.3) Estimated GFR (Cockcroft-Gault) 98.6 Glucose Level 92 mg/dL (70-99) Calcium Level 9.1 mg/dL (8.5-10.1) Test 09/21/21 07:52 Glucose (Fingerstick) 75 mg/dL (70-99) Microbiology 09/19/21 Urine Culture - Final, Complete 09/19/21 Blood Culture - Final, Complete Medications Current Medications Atorvastatin Calcium (Lipitor) 40 mg HS PO Last administered on 09/20/21at 21:31; Start 09/20/21 at 21:00 Daptomycin 570 mg/ Sodium Chloride 50 ml @ 100 mls/hr Q24H IV Last a dministered on 09/20/21at 21:31; Start 09/20/21 at 20:00 Divalproex Sodium (Depakote Er) 2,000 mg QHS PO Last administered on 09/20/21at 21:32; Start 09/20/21 at 21:00 Insulin Glargine (Lantus Syringe) 35 unit QHS SQ Last administered on 09/20/21at 21:40; Start 09/20/21 at 21:00 Iohexol (Omnipaque 240 Mg/ml) 50 ml 1X ONCE PO Last administered on 09/20/21at 09:45; Start 09/20/21 at 09:45; Stop 09/20/21 at 09:46; Status DC Iohexol (Omnipaque 300 Mg/ml) 75 ml 1X ONCE IV Last administered on 09/20/21at 09:45; Start 09/20/21 at 09:45; Stop 09/20/21 at 09:46; Status DC Lactobacillus Rhamnosus (Culturelle) 1 cap BID PO Last administered on 09/21/21at 09:12; Start 09/20/21 at 21:00 Piperacillin Sod/ Tazobactam Sod 3.375 gm/Sodium Chloride 50 ml @ 100 mls/hr Q6HRS IV Last administered on 09/21/21at 06:00; Start 09/20/21 at 12:00 Quetiapine Fumarate (SEROquel) 800 mg HS PO Last administered on 09/20/21at 21:32; Start 09/20/21 at 21:00 Sodium Chloride 1,000 ml @ 75 mls/hr [id number] IV Last administered on 09/21/21at 00:32; Start 09/20/21 at 09:30 Vitals/I & O Vital Sign - Last 24 Hours 09/20/21 09/20/21 09/20/21 09/20/21 11:00 15:00 19:00 20:00 Temp 99.2 99.0 100.8 99.2 99.0 100.8 Pulse 100 106 103 Resp 18 18 20 B/P (MAP) 176/79 (111) 140/67 (91) 135/68 (90) Pulse Ox 92 92 95 O2 Delivery Nasal Cannula Nasal Cannula Nasal Cannula Nasal Cannula O2 Flow Rate 2.0 2.0 4.0 2.0 09/20/21 09/21/21 09/21/21 09/21/21 23:48 03:25 09:13 09:14 Temp 100.0 100.1 100.0 100.1 Pulse 104 103 103 103 Resp 20 20 B/P (MAP) 130/60 (83) 125/65 (85) 125/65 125/65 Pulse Ox 95 94 O2 Delivery Nasal Cannula Nasal Cannula O2 Flow Rate 4.0 4.0 Intake and Output 09/20/21 09/20/21 09/21/21 15:00 23:00 07:00 Intake Total 0 ml Output Total 1050 ml 1000 ml 350 ml Balance -1050 ml -1000 ml -350 ml Justifications for Admission Other Justification JASMIN CHO MD Sep 21, 2021 09:18
[2021-09-21] MEDS: ENOXAPARIN 40 MG/0.4 ML SYRINGE. SQ SCH (10:33)
[2021-09-21] MEDS: ARIPiprazole 5 MG TABLET PO SCH (10:34)
[2021-09-21 11:00] VITALS: BP 130/59
--- NOTE | 2021-09-21 11:19 | PDOC ---
Infectious Disease Note Subjective: Subjective Patient states he has complains of abdominal pain No bowel movement for a couple of days Required 4 L O2 by nasal cannula last night currently on 3 L O2 by nasal cannula Denies any headache Continues to feel weak Family RN working in our hospital at bedside Vital Signs: Vital Signs Vital Signs Date Time Temp Pulse Resp B/P (MAP) Pulse Ox O2 Delivery O2 Flow Rate FiO2 09/21/21 09:14 103 125/65 09/21/21 03:25 100.1 20 94 Nasal Cannula 4.0 100.1 Physical Exam: PHYSICAL EXAM GENERAL: Alert, awake male, on nasal O2. Appears tired HEENT: Normocephalic, atraumatic. Anicteric. Bilateral hearing aids. No sinus tenderness. NECK: Supple, no JVD, no lymphadenopathy. LUNGS: Clear bilaterally. No wheezing. HEART: S1, S2. No murmurs. ABDOMEN: Soft, distended, mild tenderness present diffusely, no rebound or guarding. EXTREMITIES: No edema, no cyanosis. Hyperpigmentation both lower extremities DERMATOLOGIC: Warm, dry, no generalized rash. Chronic venous stasis, dermatitis present over both the lower extremities. NEUROLOGIC: Alert, awake, moves all 4 extremities. Answers the few questions. Medications: Inpatient Meds: Medications reviewed. Labs: Lab Laboratory Tests Test 09/20/21 12:20 09/20/21 17:51 09/20/21 19:55 09/21/21 02:50 Glucose (Fingerstick) 177 mg/dL (70-99) 116 mg/dL (70-99) 141 mg/dL (70-99) White Blood Count 7.9 x10^3/uL (4.0-11.0) Red Blood Count 3.90 x10^6/uL (4.30-5.70) Hemoglobin 11.0 g/dL (13.0-17.5) Hematocrit 33.5 % (39.0-53.0) Mean Corpuscular Volume 86 fL (79-100) Mean Corpuscular Hemoglobin 28 pg (25-35) Mean Corpuscular Hemoglobin Concent 33 g/dL (31-37) Red Cell Distribution Width 14.4 % (11.5-14.5) Platelet Count 135 x10^3/uL (140-400) Neutrophils (%) (Auto) 74 % (31-73) Lymphocytes (%) (Auto) 11 % (24-48) Monocytes (%) (Auto) 14 % (0-9) Eosinophils (%) (Auto) 0 % (0-3) Basophils (%) (Auto) 0 % (0-3) Neutrophils # (Auto) 5.8 x10^3/uL (1.8-7.7) Lymphocytes # (Auto) 0.9 x10^3/uL (1.0-4.8) Monocytes # (Auto) 1.1 x10^3/uL (0.0-1.1) Eosinophils # (Auto) 0.0 x10^3/uL (0.0-0.7) Basophils # (Auto) 0.0 x10^3/uL (0.0-0.2) Sodium Level 137 mmol/L (136-145) Potassium Level 3.6 mmol/L (3.5-5.1) Chloride Level 103 mmol/L (98-107) Carbon Dioxide Level 23 mmol/L (21-32) Anion Gap 11 (6-14) Blood Urea Nitrogen 19 mg/dL (8-26) Creatinine 0.8 mg/dL (0.7-1.3) Estimated GFR (Cockcroft-Gault) 98.6 Glucose Level 92 mg/dL (70-99) Calcium Level 9.1 mg/dL (8.5-10.1) Test 09/21/21 07:52 Glucose (Fingerstick) 75 mg/dL (70-99) Micro Blood culture GPC pending CT head noted CT abdomen reviewed IMPRESSION: 1. Moderate to large amount of colonic stool. Correlate for constipation. 2. Hepatomegaly and hepatic steatosis. 3. Small hypodense lesions within the liver. These are too small to characterize. In the absence of known malignancy, these are likely cysts or hemangiomas. Liver protocol MRI can be performed to confirm benignity if there is clinical concern. 4. Prominent right renal collecting system likely due to a distended urinary bladder. No obstructing lesion is seen. 5. Simple right renal cyst. Follow-up is not routinely performed for simple cysts. Objective: Assessment: 1. Fever could be viral 2. CT showing partial opacification of the left posterior mastoid air cells with partial erosion of the bony margins suggesting underlying mass lesion or possible vascular malformation. No previous CT for comparison. Mild headache letter will be viral 3. Status post COVID booster vaccine with the above symptoms. 4. Gram-positive cocci bacteremia in 1 out of 2 bottles present on admission could be contaminant 5. Diabetes mellitus. 6. Generalized myalgia and achiness. 7. Schizophrenia.Bipolar. 8. Hyperlipidemia. 9. Chronic back pain. 10. Constipation Plan: Plan of Care Continue Zosyn and daptomycin Follow-up repeat blood cultures Continue supportive care Monitor labs and cultures Maintain aspiration precaution Discussed with family at bedside CARRINGTON PAREKH MD Sep 21, 2021 11:19
[2021-09-21 15:00] VITALS: BP 123/75
[2021-09-21 19:00] VITALS: BP 127/58
[2021-09-21] MEDS: DAPTOmycin (GENERIC) IVPB 570 MG in IV NORMAL SALINE 50ML 50 ML IV SCH (22:07)
[2021-09-21] MEDS: ATORVASTATIN CALCIUM 40 MG TABLET. PO SCH (22:08)
[2021-09-21] MEDS: QUEtiapine 100 MG TABLET. PO SCH (22:08)
[2021-09-21] MEDS: clonazePAM 0.5 MG TABLET PO PRN (22:08)
[2021-09-21] MEDS: DIVALPROEX EXTENDED RELEASE 500 MG TAB.ER.24H. PO SCH (22:08)
[2021-09-21 23:00] VITALS: BP 114/59
[2021-09-21] MEDS: INSULIN GLARGINE SYRINGE. SQ SCH (23:01)
[2021-09-22 03:00] VITALS: BP 121/63
[2021-09-22] MEDS: PIPERACILLIN/TAZOBACTAM 3.375 GM in IV NORMAL SALINE 50ML 50 ML IV SCH ×4 (05:08→18:12)
[2021-09-22 07:00] VITALS: BP 134/73
[2021-09-22] MEDS: INSULIN LISPRO 300 UNITS/3 ML VIAL. SQ SCH ×3 (08:00→17:00)
--- NOTE | 2021-09-22 08:15 | PDOC ---
Infectious Disease Note Subjective: Subjective Patient drowsy arousable feels tired Complains of abdominal discomfort left lower quadrant No BM for couple of days On 4 L O2 by nasal cannula Son and [id number] at bedside T max 100.5 Vital Signs: Vital Signs Vital Signs Date Time Temp Pulse Resp B/P (MAP) Pulse Ox O2 Delivery O2 Flow Rate FiO2 09/22/21 03:00 100.5 100 24 121/63 (82) 94 Nasal Cannula 3.0 100.5 Physical Exam: PHYSICAL EXAM GENERAL: Sleepy but arousable male on nasal O2 HEENT: Normocephalic, atraumatic. Anicteric. Bilateral hearing aids. No sinus tenderness. Oral mucosa dry NECK: Supple, no JVD, no lymphadenopathy. LUNGS: Clear bilaterally. No wheezing. HEART: S1, S2. No murmurs. ABDOMEN: Soft, distended, mild tenderness present diffusely, no rebound or guarding. EXTREMITIES: No edema, no cyanosis. Hyperpigmentation both lower extremities DERMATOLOGIC: Warm, dry, no generalized rash. Chronic venous stasis, dermatitis present over both the lower extremities. NEUROLOGIC: Sleepy but arousable moves all 4 extremities Medications: Inpatient Meds: Medications reviewed. Labs: Lab Laboratory Tests Test 09/21/21 12:00 09/21/21 16:57 09/21/21 20:16 09/22/21 07:59 Glucose (Fingerstick) 121 mg/dL (70-99) 168 mg/dL (70-99) 176 mg/dL (70-99) 64 mg/dL (70-99) Micro Blood culture GPC pending CT head noted CT abdomen reviewed IMPRESSION: 1. Moderate to large amount of colonic stool. Correlate for constipation. 2. Hepatomegaly and hepatic steatosis. 3. Small hypodense lesions within the liver. These are too small to characterize. In the absence of known malignancy, these are likely cysts or hemangiomas. Liver protocol MRI can be performed to confirm benignity if there is clinical concern. 4. Prominent right renal collecting system likely due to a distended urinary bladder. No obstructing lesion is seen. 5. Simple right renal cyst. Follow-up is not routinely performed for simple cysts. Objective: Assessment: 1. Fever 2. CT showing partial opacification of the left posterior mastoid air cells with partial erosion of the bony margins suggesting underlying mass lesion or possible vascular malformation. No previous CT for comparison. Mild headache letter will be viral 3. Status post COVID booster vaccine with the above symptoms. 4. Gram-positive cocci bacteremia in 1 out of 2 bottles present on admission Strep mutans, could be a contaminant 5. Diabetes mellitus. 6. Generalized myalgia and achiness. 7. Schizophrenia.Bipolar. 8. Hyperlipidemia. 9. Chronic back pain. 10. Abdominal discomfort, constipation Plan: Plan of Care Continue Zosyn DC daptomycin Follow-up repeat blood cultures Continue supportive care Monitor labs and cultures Maintain aspiration precaution Discussed with family at bedside CARRINGTON PAREKH MD Sep 22, 2021 08:15
[2021-09-22] MEDS: ASPIRIN CHEWABLE 81 MG TABLET. PO SCH (09:00)
--- NOTE | 2021-09-22 09:18 | PDOC ---
PROGRESS NOTES Date of Service: DATE: 09/22/21 TIME: 09:15 Subjective Subjective low grade fever 100 Objective Objective Vital Signs Date Time Temp Pulse Resp B/P (MAP) Pulse Ox O2 Delivery O2 Flow Rate FiO2 09/22/21 07:00 99.3 101 24 134/73 (93) 94 Nasal Cannula 3.0 99.3 Intake and Output 09/22/21 07:00 Intake Total 200 ml Output Total 800 ml Balance -600 ml Intake Oral 200 ml Output Urine Total 800 ml # Voids 3 Physical Exam Abdomen: Soft Heart: Normal S1, Normal S2 Extremities: No clubbing General: Alert HEENT: Atraumatic Lungs: Clear to auscultation MUSCULOSKELETAL: No swelling Neck: Supple Neuro: Normal speech Psych/Mental Status: Mental status NL Skin: No breakdown Diagnosis Problem List Problems Medical Problems: (1) Abnormal head CT Status: Acute (2) Diabetes mellitus Status: Acute (3) Fever Status: Acute (4) Generalized weakness Status: Acute Assessment Assessment Problems Medical Problems: (1) Abnormal head CT Status: Acute (2) Diabetes mellitus Status: Acute (3) Fever Status: Acute (4) Generalized weakness Status: Acute FINAL IMPRESSION: 1. Fever. 2. Body aches. 3. Diabetes. 4. Obesity. 5. Hypertension. 6. Schizophrenia. PLAN: spoke with ID positive blood c/s 1 in 2 gram positive,[STREPTOCOCCUS MUTANS] labs ok CT scan abd and pelvis ok PT/OT IV Daptomycin+zosyn Rehab consult At this time, he was admitted to the hospital. Chest x-ray shows atelectasis and CT head, no evidence of acute abnormality. He had some mastoid air cells opacification and x-ray of the pelvis, left hip, no fracture and the patient's ID is consulted, looks like more of a viral. We will have ultrasound of the kidneys just to make sure there are no kidney stones or anything causing problems. Plan Plan of Care Problems Medical Problems: (1) Abnormal head CT Status: Acute (2) Diabetes mellitus Status: Acute (3) Fever Status: Acute (4) Generalized weakness Status: Acute Comment Review of Relevant I have reviewed the following items jayleen (where applicable) has been applied. Labs Laboratory Tests Test 09/21/21 12:00 09/21/21 16:57 09/21/21 20:16 09/22/21 07:59 Glucose (Fingerstick) 121 mg/dL (70-99) 168 mg/dL (70-99) 176 mg/dL (70-99) 64 mg/dL (70-99) Microbiology 09/21/21 Blood Culture - Preliminary, Resulted NO GROWTH AFTER 1 DAY 09/19/21 Urine Culture - Final, Complete Vitals/I & O Vital Sign - Last 24 Hours 09/21/21 09/21/21 09/21/21 09/21/21 11:00 15:00 19:00 20:15 Temp 99.9 98.9 99.7 99.9 98.9 99.7 Pulse 113 107 102 Resp 24 20 20 B/P (MAP) 130/59 (82) 123/75 (91) 127/58 (81) Pulse Ox 97 94 91 O2 Delivery Nasal Cannula Nasal Cannula Nasal Cannula Nasal Cannula O2 Flow Rate 3.0 3.0 3.0 5.0 09/21/21 09/22/21 09/22/21 23:00 03:00 07:00 Temp 100.0 100.5 99.3 100.0 100.5 99.3 Pulse 98 100 101 Resp 30 24 24 B/P (MAP) 114/59 (77) 121/63 (82) 134/73 (93) Pulse Ox 94 94 94 O2 Delivery Nasal Cannula Nasal Cannula Nasal Cannula O2 Flow Rate 3.0 3.0 3.0 Intake and Output 09/21/21 09/21/21 09/22/21 15:00 23:00 07:00 Intake Total 200 ml Output Total 200 ml 600 ml Balance -200 ml -400 ml Justifications for Admission Other Justification JASMIN CHO MD Sep 22, 2021 09:18
[2021-09-22] MEDS: ENOXAPARIN 40 MG/0.4 ML SYRINGE. SQ SCH (10:28)
[2021-09-22] MEDS: GLIMEPIRIDE 2 MG TABLET. PO SCH ×2 (10:29→22:24)
[2021-09-22] MEDS: LACTOBACILLUS RHAMNOSUS GG 1 CAPSULE. PO SCH ×2 (10:29→22:24)
[2021-09-22] MEDS: LINAGLIPTIN 5 MG TABLET PO SCH (10:29)
[2021-09-22] MEDS: FENOFIBRATE,MICRONIZED 134 MG CAPSULE PO SCH (10:30)
[2021-09-22] MEDS: FAMOTIDINE 20 MG TABLET. PO SCH ×2 (10:30→22:24)
[2021-09-22] MEDS: traMADol 50 MG TABLET PO PRN (10:30)
[2021-09-22] MEDS: ARIPiprazole 5 MG TABLET PO SCH (10:30)
[2021-09-22] MEDS: CETIRIZINE HCL 10 MG TABLET. PO SCH (10:31)
[2021-09-22] MEDS: ATENOLOL 50 MG TABLET. PO SCH (10:31)
[2021-09-22] MEDS: LISINOPRIL 20 MG TABLET PO SCH (10:31)
--- NOTE | 2021-09-22 10:35 | NUR ---
SW following. Discussed with RN, pt from home, 5L (does not use oxygen at home), COVID-19 negative. Pt has positive blood cultures - currently on IV abx, PT/OT ordered. SW will continue to follow.
[2021-09-22 11:00] VITALS: BP 123/70
[2021-09-22] MEDS ORDERED: methylPREDNISolone ACETATE 40 MG/ML VIAL. INJ ONE (11:00)
[2021-09-22] MEDS ORDERED: BUPIVACAINE MPF 0.25% 10 ML VIAL. IJ ONE (11:00)
[2021-09-22] MEDS ORDERED: methylPREDNISolone ACETATE 40 MG/ML VIAL. IM ONE (11:00)
[2021-09-22] MEDS: LIDOCAINE (700MG/PATCH) PATCH. TD SCH (13:59)
--- NOTE | 2021-09-22 14:32 | CONS ---
DATE OF CONSULTATION: 09/22/2021 ATTENDING PHYSICIAN: Doug Mccord MD REASON FOR CONSULTATION: The patient was seen at the request of Dr. Mccord for rehab evaluation. HISTORY OF PRESENT ILLNESS: This is a 61-year-old male, retired, lives with his sister had a flight of stairs with railing to get around. The patient was admitted on 09/21/2021 with fever, back pain and weakness. He is with known diabetes mellitus, bipolar disorder, hypertension, hyperlipidemia, schizophrenia, had COVID booster done on 09/16/2021 and since then he does not feel good. He is having some fever, back pain and unable to get out of the bed. He admits some chronic back pain for which he has been taking Aleve 2 of them twice daily without any stomach discomfort. The patient since admission had a CT scan of the brain, which revealed mastoid inflammation. The patient had CT scan of the abdomen and pelvis which revealed moderate to large amount of colonic stool, hepatomegaly and hepatic steatosis, small hypodense lesions in the liver, prominent right renal collecting system, likely due to distended urinary bladder, small right renal cyst. The patient had x-ray of the pelvis and hip, which revealed no acute abnormalities. I can see on CT scan of the abdomen, mild disk bulging, mainly at L3-L4 area. The patient has been walking with a cane until about 5 days ago since then, he is having difficulty to get up. PHYSICAL EXAMINATION: Today revealed a middle-aged male, obese, alert, oriented to place and person, follows commands appropriately. He had 4+/5 grade muscle strength overall. Deep tendon reflexes are 1-2+ and symmetrical with absent knee and ankle jerks. He had skin changes of both legs from chronic venous insufficiency other than that his skin is intact. He had mild crepitus on range of motion of his knee joints. No significant pain on range of motion of hip joint. He had painful limited movements of lumbar spine, tenderness to palpation over sacroiliac joint area. Straight leg raising test is negative bilaterally. He seemed to have equal perception of touch and pinprick sensation bilaterally. He requires help with bed mobility. I have not tested his transfers or ambulation skills at this time. He is using oxygen by nasal cannula and receiving IV fluids. ASSESSMENT: A middle-aged male with chronic lower back pain with lumbar radiculitis. No clinical evidence of ongoing lumbar radiculopathy or clinical evidence of peripheral neuropathy. The patient with known diabetes mellitus, obesity, degenerative joint disease of both knees, also history of hypertension, hyperlipidemia, schizophrenia, bipolar disorder, former smoker. RECOMMENDATIONS: Agree with the plan for physical therapy and occupational therapy. He probably needs to go to half-way care unit to consider injecting painful sacroiliac joint area as he is somewhat big to try lumbar corset. Dr. Mccord, I appreciate asking me to participate in the care of this interesting patient. I will be glad to see him for followup with you on as needed basis. EVA DR: Harmony TID: [id number]
[2021-09-22 15:00] VITALS: BP 124/64
[2021-09-22 19:00] VITALS: BP 129/70
[2021-09-22] MEDS: PATCH REMOVAL. MC SCH (20:38)
[2021-09-22] MEDS: DIVALPROEX EXTENDED RELEASE 500 MG TAB.ER.24H. PO SCH (22:23)
[2021-09-22] MEDS: QUEtiapine 100 MG TABLET. PO SCH (22:24)
[2021-09-22] MEDS: ATORVASTATIN CALCIUM 40 MG TABLET. PO SCH (22:24)
[2021-09-22] MEDS: clonazePAM 0.5 MG TABLET PO PRN (22:24)
[2021-09-22] MEDS: INSULIN GLARGINE SYRINGE. SQ SCH (22:30)
[2021-09-22 23:00] VITALS: BP 115/63
[2021-09-23 03:00] VITALS: BP 144/66
[2021-09-23] MEDS: PIPERACILLIN/TAZOBACTAM 3.375 GM in IV NORMAL SALINE 50ML 50 ML IV SCH ×4 (06:22→17:39)
[2021-09-23 06:31] LABS: BASO % 0 % (0-3); EOS # 0.1 x10^3/uL (0.0-0.7); EOS % 2 % (0-3); HEMATOCRIT 31.2 % (39.0-53.0); HEMOGLOBIN 10.2 g/dL (13.0-17.5); LYMPH % 18 % (24-48); MEAN CORPUSCULAR HEMOGLOBIN 28 pg (25-35); MEAN CORPUSCULAR HGB CONC 33 g/dL (31-37); MEAN CORPUSCULAR VOLUME 85 fL (79-100); MONO # 0.8 x10^3/uL (0.0-1.1); MONO % 16 % (0-9); NEUT # 3.4 x10^3/uL (1.8-7.7); NEUT % 64 % (31-73); PLATELET COUNT 169 x10^3/uL (140-400); RED BLOOD COUNT 3.66 x10^6/uL (4.30-5.70); RED CELL DISTRIBUTION WIDTH 14.7 % (11.5-14.5); WHITE BLOOD COUNT 5.2 x10^3/uL (4.0-11.0)
[2021-09-23 06:47] LABS: ALBUMIN 2.1 g/dL (3.4-5.0); ALBUMIN/GLOBULIN RATIO 0.4 (1.0-1.7); CALCIUM 9.2 mg/dL (8.5-10.1); CREATININE 0.7 mg/dL (0.7-1.3); POTASSIUM 3.6 mmol/L (3.5-5.1); TOTAL BILIRUBIN 0.3 mg/dL (0.2-1.0); TOTAL PROTEIN 7.2 g/dL (6.4-8.2)
[2021-09-23 07:30] VITALS: BP 124/66
[2021-09-23] MEDS: INSULIN LISPRO 300 UNITS/3 ML VIAL. SQ SCH ×3 (08:00→17:00)
[2021-09-23] MEDS: DEXTROSE 50% 25 GM / 50ML DISP.SYRIN. IV PRN (08:27)
[2021-09-23] MEDS: GLIMEPIRIDE 2 MG TABLET. PO SCH (08:28)
[2021-09-23] MEDS: LINAGLIPTIN 5 MG TABLET PO SCH (08:29)
--- NOTE | 2021-09-23 10:27 | PDOC ---
Infectious Disease Note Subjective: Subjective Patient drowsy arousable feels tired Complains of abdominal discomfort both lower quadrants, No BM for couple of days On 3 L O2 by nasal cannula Continues to have low-grade fever Wants to walk Complains of back pain Sister at bedside Discussed with RN Vital Signs: Vital Signs Vital Signs Date Time Temp Pulse Resp B/P (MAP) Pulse Ox O2 Delivery O2 Flow Rate FiO2 09/23/21 07:30 99.4 100 20 124/66 (85) 93 Nasal Cannula 3.0 99.4 Physical Exam: PHYSICAL EXAM GENERAL: Sleepy but arousable male on nasal O2 HEENT: Normocephalic, atraumatic. Anicteric. Bilateral hearing aids. No sinus tenderness. Oral mucosa dry NECK: Supple, no JVD, no lymphadenopathy. LUNGS: Clear bilaterally. No wheezing. HEART: S1, S2. No murmurs. ABDOMEN: Soft, distended, mild tenderness present diffusely, no rebound or guarding. EXTREMITIES: No edema, no cyanosis. Hyperpigmentation both lower extremities DERMATOLOGIC: Warm, dry, no generalized rash. Chronic venous stasis, dermatitis present over both the lower extremities. NEUROLOGIC: Sleepy but arousable moves all 4 extremities Medications: Inpatient Meds: Medications reviewed. Labs: Lab Laboratory Tests Test 09/22/21 11:34 09/22/21 17:02 09/22/21 20:37 09/23/21 04:00 Glucose (Fingerstick) 81 mg/dL (70-99) 162 mg/dL (70-99) 121 mg/dL (70-99) White Blood Count 5.2 x10^3/uL (4.0-11.0) Red Blood Count 3.66 x10^6/uL (4.30-5.70) Hemoglobin 10.2 g/dL (13.0-17.5) Hematocrit 31.2 % (39.0-53.0) Mean Corpuscular Volume 85 fL (79-100) Mean Corpuscular Hemoglobin 28 pg (25-35) Mean Corpuscular Hemoglobin Concent 33 g/dL (31-37) Red Cell Distribution Width 14.7 % (11.5-14.5) Platelet Count 169 x10^3/uL (140-400) Neutrophils (%) (Auto) 64 % (31-73) Lymphocytes (%) (Auto) 18 % (24-48) Monocytes (%) (Auto) 16 % (0-9) Eosinophils (%) (Auto) 2 % (0-3) Basophils (%) (Auto) 0 % (0-3) Neutrophils # (Auto) 3.4 x10^3/uL (1.8-7.7) Lymphocytes # (Auto) 1.0 x10^3/uL (1.0-4.8) Monocytes # (Auto) 0.8 x10^3/uL (0.0-1.1) Eosinophils # (Auto) 0.1 x10^3/uL (0.0-0.7) Basophils # (Auto) 0.0 x10^3/uL (0.0-0.2) Sodium Level 140 mmol/L (136-145) Potassium Level 3.6 mmol/L (3.5-5.1) Chloride Level 104 mmol/L (98-107) Carbon Dioxide Level 23 mmol/L (21-32) Anion Gap 13 (6-14) Blood Urea Nitrogen 17 mg/dL (8-26) Creatinine 0.7 mg/dL (0.7-1.3) Estimated GFR (Cockcroft-Gault) 115.0 BUN/Creatinine Ratio 24 (6-20) Glucose Level 64 mg/dL (70-99) Calcium Level 9.2 mg/dL (8.5-10.1) Total Bilirubin 0.3 mg/dL (0.2-1.0) Aspartate Amino Transf (AST/SGOT) 15 U/L (15-37) Alanine Aminotransferase (ALT/SGPT) 16 U/L (16-63) Alkaline Phosphatase 34 U/L (46-116) Total Protein 7.2 g/dL (6.4-8.2) Albumin 2.1 g/dL (3.4-5.0) Albumin/Globulin Ratio 0.4 (1.0-1.7) Test 09/23/21 08:19 09/23/21 09:08 Glucose (Fingerstick) 40 mg/dL (70-99) 116 mg/dL (70-99) Micro Blood culture GPC pending CT head noted CT abdomen reviewed IMPRESSION: 1. Moderate to large amount of colonic stool. Correlate for constipation. 2. Hepatomegaly and hepatic steatosis. 3. Small hypodense lesions within the liver. These are too small to characterize. In the absence of known malignancy, these are likely cysts or hemangiomas. Liver protocol MRI can be performed to confirm benignity if there is clinical concern. 4. Prominent right renal collecting system likely due to a distended urinary bladder. No obstructing lesion is seen. 5. Simple right renal cyst. Follow-up is not routinely performed for simple cysts. Objective: Assessment: 1. Fever 2. CT showing partial opacification of the left posterior mastoid air cells with partial erosion of the bony margins suggesting underlying mass lesion or possible vascular malformation. No previous CT for comparison. Mild headache letter will be viral 3. Status post COVID booster vaccine with the above symptoms. 4. Gram-positive cocci bacteremia in 1 out of 2 bottles present on admission Strep mutans, could be a contaminant 5. Diabetes mellitus. 6. Generalized myalgia and achiness. 7. Schizophrenia.Bipolar. 8. Hyperlipidemia. 9. Chronic back pain. 10. Abdominal discomfort, constipation Plan: Plan of Care Continue Zosyn for now Follow-up repeat blood cultures negative so far PT and OT as tolerated Continue supportive care Monitor labs and cultures Maintain aspiration precaution Discussed with sister and RN at bedside CARRINGTON PAREKH MD Sep 23, 2021 10:27
[2021-09-23] MEDS: FENOFIBRATE,MICRONIZED 134 MG CAPSULE PO SCH (10:35)
[2021-09-23] MEDS: ATENOLOL 50 MG TABLET. PO SCH (10:35)
[2021-09-23] MEDS: ARIPiprazole 5 MG TABLET PO SCH (10:35)
[2021-09-23] MEDS: LACTOBACILLUS RHAMNOSUS GG 1 CAPSULE. PO SCH ×2 (10:36→21:52)
[2021-09-23] MEDS: traMADol 50 MG TABLET PO PRN (10:36)
[2021-09-23] MEDS: LIDOCAINE (700MG/PATCH) PATCH. TD SCH (10:37)
--- NOTE | 2021-09-23 10:41 | PDOC ---
PROGRESS NOTES Date of Service DATE: 09/23/21 TIME: 10:39 Subjective Subjective He admits continued low back pain. Objective Objective Vital Signs Date Time Temp Pulse Resp B/P (MAP) Pulse Ox O2 Delivery O2 Flow Rate FiO2 09/23/21 07:30 99.4 100 20 124/66 (85) 93 Nasal Cannula 3.0 99.4 Intake and Output 09/23/21 07:00 Intake Total 120 ml Output Total 1770 ml Balance -1650 ml Intake Oral 120 ml Output Urine Total 1770 ml Physical Exam Physical Exam He is awake but some confusion as he had problems with hypoglycemia this AM He requires maximal assistance with bed mobility and transfers. Assessment Assessment Problems Medical Problems: (1) Abnormal head CT Status: Acute (2) Diabetes mellitus Status: Acute (3) Fever Status: Acute (4) Generalized weakness Status: Acute Plan Plan of Care To inject painful sacroiliac joints when medically stable. Comment Review of Relevant I have reviewed the following items jayleen (where applicable) has been applied. Labs Laboratory Tests Test 09/21/21 12:00 09/21/21 16:57 09/21/21 20:16 09/22/21 07:59 Glucose (Fingerstick) 121 mg/dL (70-99) 168 mg/dL (70-99) 176 mg/dL (70-99) 64 mg/dL (70-99) Test 09/22/21 11:34 09/22/21 17:02 09/22/21 20:37 09/23/21 04:00 Glucose (Fingerstick) 81 mg/dL (70-99) 162 mg/dL (70-99) 121 mg/dL (70-99) White Blood Count 5.2 x10^3/uL (4.0-11.0) Red Blood Count 3.66 x10^6/uL (4.30-5.70) Hemoglobin 10.2 g/dL (13.0-17.5) Hematocrit 31.2 % (39.0-53.0) Mean Corpuscular Volume 85 fL (79-100) Mean Corpuscular Hemoglobin 28 pg (25-35) Mean Corpuscular Hemoglobin Concent 33 g/dL (31-37) Red Cell Distribution Width 14.7 % (11.5-14.5) Platelet Count 169 x10^3/uL (140-400) Neutrophils (%) (Auto) 64 % (31-73) Lymphocytes (%) (Auto) 18 % (24-48) Monocytes (%) (Auto) 16 % (0-9) Eosinophils (%) (Auto) 2 % (0-3) Basophils (%) (Auto) 0 % (0-3) Neutrophils # (Auto) 3.4 x10^3/uL (1.8-7.7) Lymphocytes # (Auto) 1.0 x10^3/uL (1.0-4.8) Monocytes # (Auto) 0.8 x10^3/uL (0.0-1.1) Eosinophils # (Auto) 0.1 x10^3/uL (0.0-0.7) Basophils # (Auto) 0.0 x10^3/uL (0.0-0.2) Sodium Level 140 mmol/L (136-145) Potassium Level 3.6 mmol/L (3.5-5.1) Chloride Level 104 mmol/L (98-107) Carbon Dioxide Level 23 mmol/L (21-32) Anion Gap 13 (6-14) Blood Urea Nitrogen 17 mg/dL (8-26) Creatinine 0.7 mg/dL (0.7-1.3) Estimated GFR (Cockcroft-Gault) 115.0 BUN/Creatinine Ratio 24 (6-20) Glucose Level 64 mg/dL (70-99) Calcium Level 9.2 mg/dL (8.5-10.1) Total Bilirubin 0.3 mg/dL (0.2-1.0) Aspartate Amino Transf (AST/SGOT) 15 U/L (15-37) Alanine Aminotransferase (ALT/SGPT) 16 U/L (16-63) Alkaline Phosphatase 34 U/L (46-116) Total Protein 7.2 g/dL (6.4-8.2) Albumin 2.1 g/dL (3.4-5.0) Albumin/Globulin Ratio 0.4 (1.0-1.7) Test 09/23/21 08:19 09/23/21 09:08 Glucose (Fingerstick) 40 mg/dL (70-99) 116 mg/dL (70-99) Laboratory Tests Test 09/22/21 11:34 09/22/21 17:02 09/22/21 20:37 12/24/21 04:00 Glucose (Fingerstick) 81 mg/dL (70-99) 162 mg/dL (70-99) 121 mg/dL (70-99) White Blood Count 5.2 x10^3/uL (4.0-11.0) Red Blood Count 3.66 x10^6/uL (4.30-5.70) Hemoglobin 10.2 g/dL (13.0-17.5) Hematocrit 31.2 % (39.0-53.0) Mean Corpuscular Volume 85 fL (79-100) Mean Corpuscular Hemoglobin 28 pg (25-35) Mean Corpuscular Hemoglobin Concent 33 g/dL (31-37) Red Cell Distribution Width 14.7 % (11.5-14.5) Platelet Count 169 x10^3/uL (140-400) Neutrophils (%) (Auto) 64 % (31-73) Lymphocytes (%) (Auto) 18 % (24-48) Monocytes (%) (Auto) 16 % (0-9) Eosinophils (%) (Auto) 2 % (0-3) Basophils (%) (Auto) 0 % (0-3) Neutrophils # (Auto) 3.4 x10^3/uL (1.8-7.7) Lymphocytes # (Auto) 1.0 x10^3/uL (1.0-4.8) Monocytes # (Auto) 0.8 x10^3/uL (0.0-1.1) Eosinophils # (Auto) 0.1 x10^3/uL (0.0-0.7) Basophils # (Auto) 0.0 x10^3/uL (0.0-0.2) Sodium Level 140 mmol/L (136-145) Potassium Level 3.6 mmol/L (3.5-5.1) Chloride Level 104 mmol/L (98-107) Carbon Dioxide Level 23 mmol/L (21-32) Anion Gap 13 (6-14) Blood Urea Nitrogen 17 mg/dL (8-26) Creatinine 0.7 mg/dL (0.7-1.3) Estimated GFR (Cockcroft-Gault) 115.0 BUN/Creatinine Ratio 24 (6-20) Glucose Level 64 mg/dL (70-99) Calcium Level 9.2 mg/dL (8.5-10.1) Total Bilirubin 0.3 mg/dL (0.2-1.0) Aspartate Amino Transf (AST/SGOT) 15 U/L (15-37) Alanine Aminotransferase (ALT/SGPT) 16 U/L (16-63) Alkaline Phosphatase 34 U/L (46-116) Total Protein 7.2 g/dL (6.4-8.2) Albumin 2.1 g/dL (3.4-5.0) Albumin/Globulin Ratio 0.4 (1.0-1.7) Test 09/23/21 08:19 09/23/21 09:08 Glucose (Fingerstick) 40 mg/dL (70-99) 116 mg/dL (70-99) Microbiology 09/21/21 Blood Culture - Preliminary, Resulted NO GROWTH AFTER 2 DAYS 09/19/21 Urine Culture - Final, Complete Medications Current Medications Acetaminophen (Tylenol) 1,000 mg 1X ONCE PO Last administered on 09/19/21at 10:02; Start 09/19/21 at 10:00; Stop 09/19/21 at 10:01; Status DC Sodium Chloride 1,000 ml @ 1,000 mls/hr 1X ONCE IV Last administered on 09/19/21at 10:02; Start 09/19/21 at 10:00; Stop 09/19/21 at 10:59; Status DC Fentanyl Citrate (Fentanyl 2ml Vial) 50 mcg 1X ONCE IVP Last administered on 09/19/21at 11:44; Start 09/19/21 at 11:00; Stop 09/19/21 at 11:01; Status DC Ibuprofen (Motrin) 800 mg 1X ONCE PO Last administered on 09/19/21at 15:25; Start 09/19/21 at 15:15; Stop 09/19/21 at 15:16; Status DC Ondansetron HCl (Zofran) 4 mg PRN Q8HRS PRN IVP NAUSEA/VOMITING; Start 09/19/21 at 15:15; Stop 09/20/21 at 15:14; Status DC Sodium Chloride 1,000 ml @ 75 mls/hr 1X ONCE IV Last administered on 09/19/21at 15:28; Start 09/19/21 at 15:15; Stop 09/20/21 at 04:34; Status DC Acetaminophen (Tylenol) 650 mg PRN Q4HRS PRN PO MILD PAIN / TEMP > 100.3'F Last administered on 09/20/21 21:31; Start 09/19/21 at 15:15 Famotidine (Pepcid) 20 mg BID PO Last administered on 09/22/21 22:24; Start 09/19/21 at 21:00 Insulin Human Lispro (HumaLOG) 0-5 UNITS TIDWMEALS SQ Last administered on 09/20/21at 12:46; Start 09/19/21 at 17:00 Dextrose (Dextrose 50%-Water Syringe) 12.5 gm PRN Q15MIN PRN IV SEE COMMENTS Last administered on 09/23/21 08:27; Start 09/19/21 at 17:00 Aspirin (Aspirin Chewable) 81 mg DAILY PO Last administered on 09/22/21 09:00; Start 09/20/21 at 09:00 Atenolol (Tenormin) 50 mg DAILY PO Last administered on 09/22/21 10:31; Start 09/20/21 at 09:00 Atorvastatin Calcium (Lipitor) 40 mg HS PO Last administered on 09/22/21 22:24; Start 09/20/21 at 21:00 Cetirizine HCl (ZyrTEC) 10 mg DAILY PO Last administered on 09/22/21 10:31; Start 09/20/21 at 09:00 Divalproex Sodium (Depakote Er) 2,000 mg QHS PO Last administered on 09/22/21 22:23; Start 09/20/21 at 21:00 Lisinopril (Prinivil) 40 mg DAILY PO Last administered on 09/22/21 10:31; Start 09/20/21 at 09:00 Ondansetron HCl (Zofran Odt) 4 mg PRN Q6HRS PRN PO NAUSEA 1ST CHOICE; Start 09/20/21 at 06:30 Aripiprazole (Abilify) 30 mg DAILY PO Last administered on 09/22/21 10:30; Start 09/20/21 at 09:00 Clonazepam (KlonoPIN) 1 mg PRN DAILY PRN PO ANXIETY / AGITATION Last administered on 09/22/21 22:24; Start 09/20/21 at 06:45 Non-Formulary Medication (Dapagliflozin Propanediol (Farxiga)) 10 mg DAILY PO ; Start 09/20/21 at 09:00; Stop 09/22/21 at 07:08; Status DC Non-Formulary Medication (Dulaglutide (Trulicity)) 0.5 mg WEEKLY SQ ; Start 09/20/21 at 09:00; Stop 09/22/21 at 07:08; Status DC Fenofibrate (Lofibra) 134 mg DAILY PO Last administered on 09/22/21at 10:30; Start 09/20/21 at 09:00 Glimepiride (Amaryl) 4 mg BID PO Last administered on 09/22/21at 22:24; Start 09/20/21 at 09:00 Non-Formulary Medication (Icosapent Ethyl (Vascepa)) 2 gm BID PO ; Start 09/20/21 at 09:00; Stop 09/22/21 at 07:08; Status DC Insulin Glargine (Lantus Syringe) 35 unit QHS SQ Last administered on 1 11/23/20at 22:30; Start 09/20/21 at 21:00 Metformin HCl (Glucophage) 1,000 mg BIDWMEALS PO Last administered on 09/20/21at 08:46; Start 09/20/21 at 08:00; Stop 09/20/21 at 09:37; Status DC Quetiapine Fumarate (SEROquel) 800 mg HS PO Last administered on 09/22/21at 22:24; Start 09/20/21 at 21:00 Linagliptin (Tradjenta) 5 mg DAILY PO Last administered on 09/22/21at 10:29; Start 09/20/21 at 09:00 Triamterene/HCTZ (Maxzide 37.5/ 25mg) 1 tab DAILY PO Last administered on 09/20/21at 08:45; Start 09/20/21 at 09:00; Stop 09/20/21 at 09:37; Status DC Sodium Chloride 1,000 ml @ 50 mls/hr Q20H IV Last administered on 09/21/21at 1 3:36; Start 09/20/21 at 09:30; Stop 09/21/21 at 16:00; Status DC Iohexol (Omnipaque 240 Mg/ml) 50 ml 1X ONCE PO Last administered on 09/20/21at 09:45; Start 09/20/21 at 09:45; Stop 09/20/21 at 09:46; Status DC Iohexol (Omnipaque 300 Mg/ml) 75 ml 1X ONCE IV Last administered on 09/20/21at 09:45; Start 09/20/21 at 09:45; Stop 09/20/21 at 09:46; Status DC Piperacillin Sod/ Tazobactam Sod 3.375 gm/Sodium Chloride 50 ml @ 100 mls/hr Q6HRS IV Last administered on 09/23/21at 06:22; Start 09/20/21 at 12:00 Lactobacillus Rhamnosus (Culturelle) 1 cap BID PO Last administered on 09/22/21at 22:24; Start 09/20/21 at 21:00 Daptomycin 570 mg/ Sodium Chloride 50 ml @ 100 mls/hr Q24H IV Last administered on 09/21/21at 22:07; Start 09/20/21 at 20:00; Stop 09/22/21 at 18:09; Status DC Enoxaparin Sodium (Lovenox 40mg Syringe) 40 mg Q24H SQ Last administered on 09/22/21at 10:28; Start 09/21/21 at 09:00 Tramadol HCl (Ultram) 50 mg PRN Q6HRS PRN PO MODERATE PAIN Last administered on 09/22/21at 10:30; Start 09/22/21 at 09:15 Lidocaine (Lidoderm) 1 patch DAILY TD Last administered on 09/22/21at 13:59; Start 09/22/21 at 11:00 Miscellaneous (Lidoderm Patch Removal) 1 ea QHS ; Start 09/22/21 at 21:00 Methylprednisolone Acetate (DEPO-Medrol 40MG VIAL) 40 mg 1X ONCE IM ; Start 09/22/21 at 11:00; Stop 09/22/21 at 11:01; Status DC Methylprednisolone Acetate (DEPO-Medrol 40MG VIAL) 40 mg 1X ONCE INJ ; Start 09/22/21 at 11:00; Stop 09/22/21 at 11:01; Status DC Bupivacaine HCl (Sensorcaine-Mpf 0.25%) 10 ml 1X ONCE IJ ; Start 09/22/21 at 11:00; Stop 09/22/21 at 11:01; Status DC Active Scripts Active Pepcid (Famotidine) 20 Mg Tablet 20 Mg PO BID Ondansetron Odt (Ondansetron) 4 Mg Tab.rapdis 1 Tab PO PRN Q6-8HRS PRN Reported Tresiba (Insulin Degludec) 100 Unit/1 Ml Vial 35 Unit SQ QHS Trulicity (Dulaglutide) 0.75 Mg/0.5 Ml Pen.injctr 0.5 Mg SQ WEEKLY Metformin Hcl 1,000 Mg Tablet 1,000 Mg PO BIDWMEALS Aspirin 81 Mg Tab.chew 81 Mg PO DAILY Lisinopril 40 Mg Tablet 40 Mg PO DAILY Januvia (Sitagliptin Phosphate) 100 Mg Tablet 100 Mg PO DAILY Glimepiride 4 Mg Tablet 4 Mg PO BID Fenofibrate (Fenofibrate Nanocrystallized) 145 Mg Tablet 145 Mg PO DAILY Farxiga (Dapagliflozin Propanediol) 10 Mg Tablet 10 Mg PO DAILY Depakote Er (Divalproex Sodium) 500 Mg Tab.er.24h 2,000 Mg PO QHS Clonazepam 1 Mg Tablet 1 Mg PO PRN DAILY PRN Cetirizine Hcl 10 Mg Tablet 10 Mg PO DAILY Atorvastatin Calcium 40 Mg Tablet 40 Mg PO HS Atenolol 50 Mg Tablet 50 Mg PO DAILY Abilify (Aripiprazole) 30 Mg Tablet 30 Mg PO DAILY Vascepa (Icosapent Ethyl) 1 Gm Capsule 2 Gm PO BID Triamterene-Hctz 37.5-25 Mg Cp (Triamterene/Hydrochlorothiazid) 1 Each Capsule 1 Cap PO DAILY Quetiapine Fumarate 400 Mg Tablet 800 Mg PO HS Vitals/I & O Vital Sign - Last 24 Hours 09/22/21 09/22/21 09/22/21 09/22/21 11:00 15:00 19:00 20:15 Temp 99.9 100.4 99.2 99.9 100.4 99.2 Pulse 101 98 95 Resp 24 24 30 B/P (MAP) 123/70 (87) 124/64 (84) 129/70 (89) Pulse Ox 93 95 95 O2 Delivery Nasal Cannula Nasal Cannula Nasal Cannula Nasal Cannula O2 Flow Rate 3.0 3.0 3.0 5.0 09/22/21 09/23/21 09/23/21 23:00 03:00 07:30 Temp 100.4 98.9 99.4 100.4 98.9 99.4 Pulse 96 95 100 Resp 26 26 20 B/P (MAP) 115/63 (80) 144/66 (92) 124/66 (85) Pulse Ox 94 93 93 O2 Delivery Nasal Cannula Nasal Cannula Nasal Cannula O2 Flow Rate 3.0 3.0 3.0 Intake and Output 09/22/21 09/22/21 09/23/21 15:00 23:00 07:00 Intake Total 120 ml Output Total 320 ml 650 ml 800 ml Balance -320 ml -650 ml -680 ml Justifications for Admission Other Justification KRYSTAL CARRANZA MD Sep 23, 2021 10:41
[2021-09-23] MEDS: ASPIRIN CHEWABLE 81 MG TABLET. PO SCH (10:43)
[2021-09-23] MEDS: FAMOTIDINE 20 MG TABLET. PO SCH ×2 (10:48→21:52)
[2021-09-23 11:00] VITALS: BP 138/72
[2021-09-23] MEDS: ENOXAPARIN 40 MG/0.4 ML SYRINGE. SQ SCH (11:01)
[2021-09-23] MEDS: CETIRIZINE HCL 10 MG TABLET. PO SCH (11:01)
--- NOTE | 2021-09-23 11:01 | PDOC ---
PROGRESS NOTES Date of Service: DATE: 09/23/21 TIME: 10:59 Subjective Subjective fever 100.4 Objective Objective Vital Signs Date Time Temp Pulse Resp B/P (MAP) Pulse Ox O2 Delivery O2 Flow Rate FiO2 09/23/21 10:36 Nasal Cannula 5.0 09/23/21 10:35 100 124/66 09/23/21 07:30 99.4 20 93 99.4 Intake and Output 09/23/21 07:00 Intake Total 120 ml Output Total 1770 ml Balance -1650 ml Intake Oral 120 ml Output Urine Total 1770 ml Physical Exam Abdomen: Soft Heart: Normal S1, Normal S2 Extremities: No clubbing General: Alert HEENT: Atraumatic Lungs: Clear to auscultation MUSCULOSKELETAL: No swelling Neck: Supple Neuro: Normal speech Psych/Mental Status: Mental status NL Skin: No breakdown Diagnosis Problem List Problems Medical Problems: (1) Abnormal head CT Status: Acute (2) Diabetes mellitus Status: Acute (3) Fever Status: Acute (4) Generalized weakness Status: Acute Assessment Assessment Problems Medical Problems: (1) Abnormal head CT Status: Acute (2) Diabetes mellitus Status: Acute (3) Fever Status: Acute (4) Generalized weakness Status: Acute FINAL IMPRESSION: 1. Fever. 2. Body aches. 3. Diabetes. 4. Obesity. 5. Hypertension. 6. Schizophrenia. PLAN: spoke with pts family positive blood c/s 1 in 2 gram positive,[STREPTOCOCCUS MUTANS] labs ok CT scan abd and pelvis ok PT/OT iv Z osyn, d/c IV Daptomycin Rehab consult CT chest today At this time, he was admitted to the hospital. Chest x-ray shows atelectasis and CT head, no evidence of acute abnormality. He had some mastoid air cells opacification and x-ray of the pelvis, left hip, no fracture and the patient's ID is consulted, looks like more of a viral. We will have ultrasound of the kidneys just to make sure there are no kidney stones or anything causing problems. Plan Plan of Care Problems Medical Problems: (1) Abnormal head CT Status: Acute (2) Diabetes mellitus Status: Acute (3) Fever Status: Acute (4) Generalized weakness Status: Acute Comment Review of Relevant I have reviewed the following items jayleen (where applicable) has been applied. Labs Laboratory Tests Test 09/22/21 11:34 09/22/21 17:02 09/22/21 20:37 09/23/21 04:00 Glucose (Fingerstick) 81 mg/dL (70-99) 162 mg/dL (70-99) 121 mg/dL (70-99) White Blood Count 5.2 x10^3/uL (4.0-11.0) Red Blood Count 3.66 x10^6/uL (4.30-5.70) Hemoglobin 10.2 g/dL (13.0-17.5) Hematocrit 31.2 % (39.0-53.0) Mean Corpuscular Volume 85 fL (79-100) Mean Corpuscular Hemoglobin 28 pg (25-35) Mean Corpuscular Hemoglobin Concent 33 g/dL (31-37) Red Cell Distribution Width 14.7 % (11.5-14.5) Platelet Count 169 x10^3/uL (140-400) Neutrophils (%) (Auto) 64 % (31-73) Lymphocytes (%) (Auto) 18 % (24-48) Monocytes (%) (Auto) 16 % (0-9) Eosinophils (%) (Auto) 2 % (0-3) Basophils (%) (Auto) 0 % (0-3) Neutrophils # (Auto) 3.4 x10^3/uL (1.8-7.7) Lymphocytes # (Auto) 1.0 x10^3/uL (1.0-4.8) Monocytes # (Auto) 0.8 x10^3/uL (0.0-1.1) Eosinophils # (Auto) 0.1 x10^3/uL (0.0-0.7) Basophils # (Auto) 0.0 x10^3/uL (0.0-0.2) Sodium Level 140 mmol/L (136-145) Potassium Level 3.6 mmol/L (3.5-5.1) Chloride Level 104 mmol/L (98-107) Carbon Dioxide Level 23 mmol/L (21-32) Anion Gap 13 (6-14) Blood Urea Nitrogen 17 mg/dL (8-26) Creatinine 0.7 mg/dL (0.7-1.3) Estimated GFR (Cockcroft-Gault) 115.0 BUN/Creatinine Ratio 24 (6-20) Glucose Level 64 mg/dL (70-99) Calcium Level 9.2 mg/dL (8.5-10.1) Total Bilirubin 0.3 mg/dL (0.2-1.0) Aspartate Amino Transf (AST/SGOT) 15 U/L (15-37) Alanine Aminotransferase (ALT/SGPT) 16 U/L (16-63) Alkaline Phosphatase 34 U/L (46-116) Total Protein 7.2 g/dL (6.4-8.2) Albumin 2.1 g/dL (3.4-5.0) Albumin/Globulin Ratio 0.4 (1.0-1.7) Test 09/23/21 08:19 09/23/21 09:08 Glucose (Fingerstick) 40 mg/dL (70-99) 116 mg/dL (70-99) Microbiology 09/21/21 Blood Culture - Preliminary, Resulted NO GROWTH AFTER 2 DAYS 09/19/21 Urine Culture - Final, Complete Medications Current Medications Bupivacaine HCl (Sensorcaine-Mpf 0.25%) 10 ml 1X ONCE IJ ; Start 09/22/21 at 11:00; Stop 09/22/21 at 11:01; Status DC Lidocaine (Lidoderm) 1 patch DAILY TD Last administered on 09/23/21at 10:37; Start 09/22/21 at 11:00 Methylprednisolone Acetate (DEPO-Medrol 40MG VIAL) 40 mg 1X ONCE IM ; Start 09/22/21 at 11:00; Stop 09/22/21 at 11:01; Status DC Methylprednisolone Acetate (DEPO-Medrol 40MG VIAL) 40 mg 1X ONCE INJ ; Start 09/22/21 at 11:00; Stop 09/22/21 at 11:01; Status DC Miscellaneous (Lidoderm Patch Removal) 1 ea [facility] ; Start 09/22/21 at 21:00 Vitals/I & O Vital Sign - Last 24 Hours 09/22/21 09/22/21 09/22/21 09/22/21 11:00 15:00 19:00 20:15 Temp 99.9 100.4 99.2 99.9 100.4 99.2 Pulse 101 98 95 Resp 24 24 30 B/P (MAP) 123/70 (87) 124/64 (84) 129/70 (89) Pulse Ox 93 95 95 O2 Delivery Nasal Cannula Nasal Cannula Nasal Cannula Nasal Cannula O2 Flow Rate 3.0 3.0 3.0 5.0 09/22/21 09/23/21 09/23/21 09/23/21 23:00 03:00 07:30 10:35 Temp 100.4 98.9 99.4 100.4 98.9 99.4 Pulse 96 95 100 100 Resp 26 26 20 B/P (MAP) 115/63 (80) 144/66 (92) 124/66 (85) 124/66 Pulse Ox 94 93 93 O2 Delivery Nasal Cannula Nasal Cannula Nasal Cannula O2 Flow Rate 3.0 3.0 3.0 09/23/21 10:36 O2 Delivery Nasal Cannula O2 Flow Rate 5.0 Intake and Output 09/22/21 09/22/21 09/23/21 15:00 23:00 07:00 Intake Total 120 ml Output Total 320 ml 650 ml 800 ml Balance -320 ml -650 ml -680 ml Justifications for Admission Other Justification JASMIN CHO MD Sep 23, 2021 11:01
[2021-09-23 15:00] VITALS: BP 125/71
[2021-09-23] MEDS: ACETAMINOPHEN 325 MG TABLET. PO PRN (15:22)
[2021-09-23] MEDS: LISINOPRIL 20 MG TABLET PO SCH (15:23)
--- NOTE | 2021-09-23 17:27 | RAD ---
CT THORAX WO dated 09/23/2021 2:42 PM Indication:Reason: fever r/o pneumonia / Spl. Instructions: / History: Comparison: CT 03/06/2021 Technique: Helical noncontrast images were performed. One or more of the following individualized dose reduction techniques were utilized for this examinat ion: 1. Automated exposure control 2. Adjustment of the mA and/or kV according to patient size 3. Use of iterative reconstruction technique Findings: There are small bilateral pleural effusions with some adjacent atelectasis. Some infiltrate is presen t mostly posteriorly in the right upper lobe and there is mild haziness elsewhere on each side. There may be mild interlobular septal thickening. The central airways show no obstruction. There are some mildly prominent mediastinal nodes that are presumably reactive. The thoracic aorta is normal in meir carlene. Images through the upper abdomen show no apparent acute abnormality. IMPRESSION: There are bilateral effusions and some atelectasis as well as infiltrate mostly in the right upper lo be. It could also be some intralobular septal thickening. Findings are nonspecific. CHF is a consider ation, although the right upper lobe abnormality may be pneumonia. Electronically signed by: Fabian Castro Jr., MD (09/23/2021 5:25 PM) [id number]
[2021-09-23 19:00] VITALS: BP 118/67
[2021-09-23] MEDS: PATCH REMOVAL. MC SCH (21:00)
[2021-09-23] MEDS: QUEtiapine 100 MG TABLET. PO SCH (21:51)
[2021-09-23] MEDS: ATORVASTATIN CALCIUM 40 MG TABLET. PO SCH (21:52)
[2021-09-23] MEDS: DIVALPROEX EXTENDED RELEASE 500 MG TAB.ER.24H. PO SCH (21:52)
[2021-09-23] MEDS: INSULIN GLARGINE SYRINGE. SQ SCH (21:58)
[2021-09-23 23:00] VITALS: BP 124/69
[2021-09-24] MEDS: PIPERACILLIN/TAZOBACTAM 3.375 GM in IV NORMAL SALINE 50ML 50 ML IV SCH ×2 (01:06→06:12)
[2021-09-24 03:00] VITALS: BP 132/72
[2021-09-24 07:00] VITALS: BP 130/70
[2021-09-24] MEDS: INSULIN LISPRO 300 UNITS/3 ML VIAL. SQ SCH ×3 (08:00→18:10)
--- NOTE | 2021-09-24 08:01 | PDOC ---
Infectious Disease Note Subjective: Subjective Patient complains of back pain More alert this morning Afebrile for last 24 hours Had a small bowel movement Denies any fever, headache, nausea, vomiting Vital Signs: Vital Signs Vital Signs Date Time Temp Pulse Resp B/P (MAP) Pulse Ox O2 Delivery O2 Flow Rate FiO2 09/24/21 03:00 99.0 91 20 132/72 (92) 95 Nasal Cannula 5.0 99.0 Physical Exam: PHYSICAL EXAM GENERAL: Sleepy but arousable male on nasal O2 HEENT: Normocephalic, atraumatic. Anicteric. Bilateral hearing aids. No sinus tenderness. Oral mucosa dry NECK: Supple, no JVD, no lymphadenopathy. LUNGS: Clear bilaterally. No wheezing. HEART: S1, S2. No murmurs. ABDOMEN: Soft, distended, mild tenderness present diffusely, no rebound or guarding. EXTREMITIES: No edema, no cyanosis. Hyperpigmentation both lower extremities DERMATOLOGIC: Warm, dry, no generalized rash. Chronic venous stasis, dermatitis present over both the lower extremities. NEUROLOGIC: Sleepy but arousable moves all 4 extremities Medications: Inpatient Meds: Medications reviewed. Labs: Lab Laboratory Tests Test 09/23/21 08:19 09/23/21 09:08 09/23/21 11:34 09/23/21 16:57 Glucose (Fingerstick) 40 mg/dL (70-99) 116 mg/dL (70-99) 90 mg/dL (70-99) 77 mg/dL (70-99) Test 09/23/21 21:54 Glucose (Fingerstick) 130 mg/dL (70-99) Micro Blood culture GPC pending CT head noted CT abdomen reviewed IMPRESSION: 1. Moderate to large amount of colonic stool. Correlate for constipation. 2. Hepatomegaly and hepatic steatosis. 3. Small hypodense lesions within the liver. These are too small to characterize. In the absence of known malignancy, these are likely cysts or hemangiomas. Liver protocol MRI can be performed to confirm benignity if there is clinical concern. 4. Prominent right renal collecting system likely due to a distended urinary bladder. No obstructing lesion is seen. 5. Simple right renal cyst. Follow-up is not routinely performed for simple cysts. Objective: Assessment: 1. Fever resolved 2. CT showing partial opacification of the left posterior mastoid air cells with partial erosion of the bony margins suggesting underlying mass lesion or possible vascular malformation. No previous CT for comparison. Mild headache letter will be viral 3. Status post COVID booster vaccine with the above symptoms. 4. Gram-positive cocci bacteremia in 1 out of 2 bottles present on admission Strep mutans, could be a contaminant 5. Diabetes mellitus. 6. Generalized myalgia and achiness. 7. Schizophrenia.Bipolar. 8. Hyperlipidemia. 9. Chronic back pain. 10. Abdominal discomfort, constipation Plan: Plan of Care Change Zosyn to Augmentin PT and OT as tolerated Monitor labs and cultures Continue supportive care Discussed with CARRINGTON ANDINO MD Sep 24, 2021 08:01
[2021-09-24] MEDS: FENOFIBRATE,MICRONIZED 134 MG CAPSULE PO SCH (09:30)
[2021-09-24] MEDS: LACTOBACILLUS RHAMNOSUS GG 1 CAPSULE. PO SCH ×2 (09:30→20:54)
[2021-09-24] MEDS: LINAGLIPTIN 5 MG TABLET PO SCH (09:30)
[2021-09-24] MEDS: LISINOPRIL 20 MG TABLET PO SCH (09:30)
[2021-09-24] MEDS: ASPIRIN CHEWABLE 81 MG TABLET. PO SCH (09:30)
[2021-09-24] MEDS: ATENOLOL 50 MG TABLET. PO SCH (09:30)
[2021-09-24] MEDS: LIDOCAINE (700MG/PATCH) PATCH. TD SCH (09:36)
[2021-09-24] MEDS: FAMOTIDINE 20 MG TABLET. PO SCH ×2 (09:36→20:54)
[2021-09-24] MEDS: ENOXAPARIN 40 MG/0.4 ML SYRINGE. SQ SCH (09:36)
[2021-09-24] MEDS: CETIRIZINE HCL 10 MG TABLET. PO SCH (09:36)
[2021-09-24] MEDS: AMOXICILLIN/K CLAV 875/125MG TABLET. PO SCH ×2 (09:36→20:54)
[2021-09-24] MEDS: ARIPiprazole 5 MG TABLET PO SCH (09:40)
--- NOTE | 2021-09-24 10:08 | PDOC ---
PROGRESS NOTES Date of Service DATE: 09/24/21 TIME: 10:06 Subjective Subjective Nursing reports of his low back pain eases up with acetaminophen. Objective Objective Vital Signs Date Time Temp Pulse Resp B/P (MAP) Pulse Ox O2 Delivery O2 Flow Rate FiO2 09/24/21 07:00 98.9 91 18 130/70 (90) 96 Nasal Cannula 5.0 98.9 Intake and Output 09/24/21 07:00 Intake Total 460 ml Output Total 1350 ml Balance -890 ml Intake Oral 460 ml Output Urine Total 1350 ml # Voids 2 Physical Exam Physical Exam He is awake,supine in bed but continues with painfully limited lumbar spine ROM with tenderness to palpation over sacroiliac joints bilaterally and he requires physical assistance with bed mobility. Assessment Assessment Problems Medical Problems: (1) Abnormal head CT Status: Acute (2) Diabetes mellitus Status: Acute (3) Fever Status: Acute (4) Generalized weakness Status: Acute Plan Plan of Care To get him up as tolerated. Comment Review of Relevant I have reviewed the following items jayleen (where applicable) has been applied. Labs Laboratory Tests Test 09/22/21 11:34 09/22/21 17:02 09/22/21 20:37 09/23/21 04:00 Glucose (Fingerstick) 81 mg/dL (70-99) 162 mg/dL (70-99) 121 mg/dL (70-99) White Blood Count 5.2 x10^3/uL (4.0-11.0) Red Blood Count 3.66 x10^6/uL (4.30-5.70) Hemoglobin 10.2 g/dL (13.0-17.5) Hematocrit 31.2 % (39.0-53.0) Mean Corpuscular Volume 85 fL (79-100) Mean Corpuscular Hemoglobin 28 pg (25-35) Mean Corpuscular Hemoglobin Concent 33 g/dL (31-37) Red Cell Distribution Width 14.7 % (11.5-14.5) Platelet Count 169 x10^3/uL (140-400) Neutrophils (%) (Auto) 64 % (31-73) Lymphocytes (%) (Auto) 18 % (24-48) Monocytes (%) (Auto) 16 % (0-9) Eosinophils (%) (Auto) 2 % (0-3) Basophils (%) (Auto) 0 % (0-3) Neutrophils # (Auto) 3.4 x10^3/uL (1.8-7.7) Lymphocytes # (Auto) 1.0 x10^3/uL (1.0-4.8) Monocytes # (Auto) 0.8 x10^3/uL (0.0-1.1) Eosinophils # (Auto) 0.1 x10^3/uL (0.0-0.7) Basophils # (Auto) 0.0 x10^3/uL (0.0-0.2) Sodium Level 140 mmol/L (136-145) Potassium Level 3.6 mmol/L (3.5-5.1) Chloride Level 104 mmol/L (98-107) Carbon Dioxide Level 23 mmol/L (21-32) Anion Gap 13 (6-14) Blood Urea Nitrogen 17 mg/dL (8-26) Creatinine 0.7 mg/dL (0.7-1.3) Estimated GFR (Cockcroft-Gault) 115.0 BUN/Creatinine Ratio 24 (6-20) Glucose Level 64 mg/dL (70-99) Calcium Level 9.2 mg/dL (8.5-10.1) Total Bilirubin 0.3 mg/dL (0.2-1.0) Aspartate Amino Transf (AST/SGOT) 15 U/L (15-37) Alanine Aminotransferase (ALT/SGPT) 16 U/L (16-63) Alkaline Phosphatase 34 U/L (46-116) Total Protein 7.2 g/dL (6.4-8.2) Albumin 2.1 g/dL (3.4-5.0) Albumin/Globulin Ratio 0.4 (1.0-1.7) Test 09/23/21 08:19 09/23/21 09:08 09/23/21 11:34 09/23/21 16:57 Glucose (Fingerstick) 40 mg/dL (70-99) 116 mg/dL (70-99) 90 mg/dL (70-99) 77 mg/dL (70-99) Test 09/23/21 21:54 Glucose (Fingerstick) 130 mg/dL (70-99) Laboratory Tests Test 09/23/21 11:34 09/23/21 16:57 09/23/21 21:54 Glucose (Fingerstick) 90 mg/dL (70-99) 77 mg/dL (70-99) 130 mg/dL (70-99) Microbiology 09/21/21 Blood Culture - Preliminary, Resulted NO GROWTH AFTER 3 DAYS 09/19/21 Urine Culture - Final, Complete Medications Current Medications Acetaminophen (Tylenol) 1,000 mg 1X ONCE PO Last administered on 09/19/21at 10:02; Start 09/19/21 at 10:00; Stop 09/19/21 at 10:01; Status DC Sodium Chloride 1,000 ml @ 1,000 mls/hr 1X ONCE IV Last administered on 09/19/21at 10:02; Start 09/19/21 at 10:00; Stop 09/19/21 at 10:59; Status DC Fentanyl Citrate (Fentanyl 2ml Vial) 50 mcg 1X ONCE IVP Last administered on 09/19/21at 11:44; Start 09/19/21 at 11:00; Stop 09/19/21 at 11:01; Status DC Ibuprofen (Motrin) 800 mg 1X ONCE PO Last administered on 09/19/21at 15:25; Start 09/19/21 at 15:15; Stop 09/19/21 at 15:16; Status DC Ondansetron HCl (Zofran) 4 mg PRN Q8HRS PRN IVP NAUSEA/VOMITING; Start 09/19/21 at 15:15; Stop 09/20/21 at 15:14; Status DC Sodium Chloride 1,000 ml @ 75 mls/hr 1X ONCE IV Last administered on 09/19/21at 15:28; Start 09/19/21 at 15:15; Stop 09/20/21 at 04:34; Status DC Acetaminophen (Tylenol) 650 mg PRN Q4HRS PRN PO MILD PAIN / TEMP > 100.3'F Last administered on 09/23/21at 15:22; Start 09/19/21 at 15:15 Famotidine (Pepcid) 20 mg BID PO Last administered on 09/23/21at 21:52; Start 09/19/21 at 21:00 Insulin Human Lispro (HumaLOG) 0-5 UNITS TIDWMEALS SQ Last administered on 09/20/21at 12:46; Start 09/19/21 at 17:00 Dextrose (Dextrose 50%-Water Syringe) 12.5 gm PRN Q15MIN PRN IV SEE COMMENTS Last administered on 09/23/21 08:27; Start 09/19/21 at 17:00 Aspirin (Aspirin Chewable) 81 mg DAILY PO Last administered on 09/23/21 10:43; Start 09/20/21 at 09:00 Atenolol (Tenormin) 50 mg DAILY PO Last administered on 09/23/21 10:35; Start 09/20/21 at 09:00 Atorvastatin Calcium (Lipitor) 40 mg HS PO Last administered on 09/23/21 21:52; Start 09/20/21 at 21:00 Cetirizine HCl (ZyrTEC) 10 mg DAILY PO Last administered on 09/23/21 11:01; Start 09/20/21 at 09:00 Divalproex Sodium (Depakote Er) 2,000 mg QHS PO Last administered on 09/23/21 21:52; Start 09/20/21 at 21:00 Lisinopril (Prinivil) 40 mg DAILY PO Last administered on 09/23/21 15:23; Start 09/20/21 at 09:00 Ondansetron HCl (Zofran Odt) 4 mg PRN Q6HRS PRN PO NAUSEA 1ST CHOICE; Start 09/20/21 at 06:30 Aripiprazole (Abilify) 30 mg DAILY PO Last administered on 09/23/21 10:35; Start 09/20/21 at 09:00 Clonazepam (KlonoPIN) 1 mg PRN DAILY PRN PO ANXIETY / AGITATION Last administered on 09/22/21at 22:24; Start 09/20/21 at 06:45 Non-Formulary Medication (Dapagliflozin Propanediol (Farxiga)) 10 mg DAILY PO ; Start 09/20/21 at 09:00; Stop 09/22/21 at 07:08; Status DC Non-Formulary Medication (Dulaglutide (Trulicity)) 0.5 mg WEEKLY SQ ; Start 09/20/21 at 09:00; Stop 09/22/21 at 07:08; Status DC Fenofibrate (Lofibra) 134 mg DAILY PO Last administered on 09/23/21at 10:35; Start 09/20/21 at 09:00 Glimepiride (Amaryl) 4 mg BID PO Last administered on 09/22/21at 22:24; Start 09/20/21 at 09:00; Stop 09/23/21 at 10:59; Status DC Non-Formulary Medication (Icosapent Ethyl (Vascepa)) 2 gm BID PO ; Start 09/20/21 at 09:00; Stop 09/22/21 at 07:08; Status DC Insulin Glargine (Lantus Syringe) 35 unit QHS SQ Last administered on 09/22/21at 22:30; Start 09/20/21 at 21:00; Stop 09/23/21 at 10:59; Status DC Metformin HCl (Glucophage) 1,000 mg BIDWMEALS PO Last administered on 09/20/21at 08:46; Start 09/20/21 at 08:00; Stop 09/20/21 at 09:37; Status DC Quetiapine Fumarate (SEROquel) 800 mg HS PO Last administered on 09/23/21at 21:51; Start 09/20/21 at 21:00 Linagliptin (Tradjenta) 5 mg DAILY PO Last administered on 09/22/21at 10:29; Start 09/20/21 at 09:00 Triamterene/HCTZ (Maxzide 37.5/ 25mg) 1 tab DAILY PO Last administered on 09/20/21at 08:45; Start 09/20/21 at 09:00; Stop 09/20/21 at 09:37; Status DC Sodium Chloride 1,000 ml @ 50 mls/hr Q20H IV Last administered on 09/21/21at 13:36; Start 09/20/21 at 09:30; Stop 09/21/21 at 16:00; Status DC Iohexol (Omnipaque 240 Mg/ml) 50 ml 1X ONCE PO Last administered on 09/20/21at 09:45; Start 09/20/21 at 09:45; Stop 09/20/21 at 09:46; Status DC Iohexol (Omnipaque 300 Mg/ml) 75 ml 1X ONCE IV Last administered on 09/20/21at 09:45; Start 09/20/21 at 09:45; Stop 09/20/21 at 09:46; Status DC Piperacillin Sod/ Tazobactam Sod 3.375 gm/Sodium Chloride 50 ml @ 100 mls/hr Q6HRS IV Last administered on 09/24/21at 06:12; Start 09/20/21 at 12:00; Stop 09/24/21 at 07:54; Status DC Lactobacillus Rhamnosus (Culturelle) 1 cap BID PO Last administered on 09/23/21at 21:52; Start 09/20/21 at 21:00 Daptomycin 570 mg/ Sodium Chloride 50 ml @ 100 mls/hr Q24H IV Last administered on 09/21/21at 22:07; Start 09/20/21 at 20:00; Stop 09/22/21 at 18:09; Status DC Enoxaparin Sodium (Lovenox 40mg Syringe) 40 mg Q24H SQ Last administered on 09/23/21at 11:01; Start 09/21/21 at 09:00 Tramadol HCl (Ultram) 50 mg PRN Q6HRS PRN PO MODERATE PAIN Last administered on 09/23/21at 10:36; Start 09/22/21 at 09:15 Lidocaine (Lidoderm) 1 patch DAILY TD Last administered on 09/23/21at 10:37; Start 09/22/21 at 11:00 Miscellaneous (Lidoderm Patch Removal) 1 ea [facility] Last administered on 09/23/21at 21:00; Start 09/22/21 at 21:00 Methylprednisolone Acetate (DEPO-Medrol 40MG VIAL) 40 mg 1X ONCE IM ; Start 09/22/21 at 11:00; Stop 09/22/21 at 11:01; Status DC Methylprednisolone Acetate (DEPO-Medrol 40MG VIAL) 40 mg 1X ONCE INJ ; Start 09/22/21 at 11:00; Stop 09/22/21 at 11:01; Status DC Bupivacaine HCl (Sensorcaine-Mpf 0.25%) 10 ml 1X ONCE IJ ; Start 09/22/21 at 11:00; Stop 09/22/21 at 11:01; Status DC Insulin Glargine (Lantus Syringe) 20 unit QHS SQ Last administered on 09/23/21at 21:58; Start 09/23/21 at 21:00 Polyethylene Glycol (miraLAX PACKET) 17 gm PRN DAILY PRN PO CONSTIPATION; Start 09/23/21 at 16:00 Amoxicillin/ Clavulanate Potassium (Augmentin 875/ 125mg) 1 tab BID PO ; Start 09/24/21 at 09:00 Active Scripts Active Pepcid (Famotidine) 20 Mg Tablet 20 Mg PO BID Ondansetron Odt (Ondansetron) 4 Mg Tab.rapdis 1 Tab PO PRN Q6-8HRS PRN Reported Tresiba (Insulin Degludec) 100 Unit/1 Ml Vial 35 Unit SQ QHS Trulicity (Dulaglutide) 0.75 Mg/0.5 Ml Pen.injctr 0.5 Mg SQ WEEKLY Metformin Hcl 1,000 Mg Tablet 1,000 Mg PO BIDWMEALS Aspirin 81 Mg Tab.chew 81 Mg PO DAILY Lisinopril 40 Mg Tablet 40 Mg PO DAILY Januvia (Sitagliptin Phosphate) 100 Mg Tablet 100 Mg PO DAILY Glimepiride 4 Mg Tablet 4 Mg PO BID Fenofibrate (Fenofibrate Nanocrystallized) 145 Mg Tablet 145 Mg PO DAILY Farxiga (Dapagliflozin Propanediol) 10 Mg Tablet 10 Mg PO DAILY Depakote Er (Divalproex Sodium) 500 Mg Tab.er.24h 2,000 Mg PO QHS Clonazepam 1 Mg Tablet 1 Mg PO PRN DAILY PRN Cetirizine Hcl 10 Mg Tablet 10 Mg PO DAILY Atorvastatin Calcium 40 Mg Tablet 40 Mg PO HS Atenolol 50 Mg Tablet 50 Mg PO DAILY Abilify (Aripiprazole) 30 Mg Tablet 30 Mg PO DAILY Vascepa (Icosapent Ethyl) 1 Gm Capsule 2 Gm PO BID Triamterene-Hctz 37.5-25 Mg Cp (Triamterene/Hydrochlorothiazid) 1 Each Capsule 1 Cap PO DAILY Quetiapine Fumarate 400 Mg Tablet 800 Mg PO HS Vitals/I & O Vital Sign - Last 24 Hours 09/23/21 09/23/21 09/23/21 09/23/21 10:35 10:36 11:00 11:15 Temp 100.1 100.1 Pulse 100 92 Resp 20 B/P (MAP) 124/66 138/72 (94) Pulse Ox 96 O2 Delivery Nasal Cannula Nasal Cannula Nasal Cannula O2 Flow Rate 5.0 3.0 5.0 09/23/21 09/23/21 09/23/21 09/23/21 15:00 15:23 19:00 20:15 Temp 98.6 98.3 98.6 98.3 Pulse 85 92 86 Resp 20 22 B/P (MAP) 125/71 (89) 138/72 118/67 (84) Pulse Ox 95 94 O2 Delivery Nasal Cannula Nasal Cannula Nasal Cannula O2 Flow Rate 5.0 5.0 5.0 09/23/21 09/24/21 09/24/21 23:00 03:00 07:00 Temp 98.1 99.0 98.9 98.1 99.0 98.9 Pulse 89 91 91 Resp 20 20 18 B/P (MAP) 124/69 (87) 132/72 (92) 130/70 (90) Pulse Ox 95 95 96 O2 Delivery Nasal Cannula Nasal Cannula O2 Flow Rate 5.0 5.0 5.0 Intake and Output 09/23/21 09/23/21 09/24/21 15:00 23:00 07:00 Intake Total 240 ml 100 ml 120 ml Output Total 1100 ml 250 ml Balance 240 ml -1000 ml -130 ml Justifications for Admission Other Justification KRYSTAL CARRANZA MD Sep 24, 2021 10:08
--- NOTE | 2021-09-24 11:19 | PDOC ---
PROGRESS NOTES Date of Service: DATE: 09/24/21 TIME: 11:18 Subjective Subjective feels ok Objective Objective Vital Signs Date Time Temp Pulse Resp B/P (MAP) Pulse Ox O2 Delivery O2 Flow Rate FiO2 09/24/21 07:00 98.9 91 18 130/70 (90) 96 Nasal Cannula 5.0 98.9 Intake and Output 09/24/21 07:00 Intake Total 460 ml Output Total 1350 ml Balance -890 ml Intake Oral 460 ml Output Urine Total 1350 ml # Voids 2 Physical Exam Abdomen: Soft Heart: Normal S1, Normal S2 Extremities: No clubbing General: Alert HEENT: Atraumatic Lungs: Clear to auscultation MUSCULOSKELETAL: No swelling Neck: Supple Neuro: Normal speech Psych/Mental Status: Mental status NL Skin: No breakdown Diagnosis Problem List Problems Medical Problems: (1) Abnormal head CT Status: Acute (2) Diabetes mellitus Status: Acute (3) Fever Status: Acute (4) Generalized weakness Status: Acute Assessment Assessment Problems Medical Problems: (1) Abnormal head CT Status: Acute (2) Diabetes mellitus Status: Acute (3) Fever Status: Acute (4) Generalized weakness Status: Acute FINAL IMPRESSION: 1. Fever. 2. Body aches. 3. Diabetes. 4. Obesity. 5. Hypertension. 6. Schizophrenia. PLAN: CT chest showed Pneumonia rt upper lung. spoke with pts family, sister positive blood c/s 1 in 2 gram positive,[STREPTOCOCCUS MUTANS] labs ok CT scan abd and pelvis ok PT/OT iv Z osyn, d/c IV Daptomycin Rehab consult Plan Plan of Care Problems Medical Problems: (1) Abnormal head CT Status: Acute (2) Diabetes mellitus Status: Acute (3) Fever Status: Acute (4) Generalized weakness Status: Acute Comment Review of Relevant I have reviewed the following items jayleen (where applicable) has been applied. Labs Laboratory Tests Test 09/23/21 11:34 09/23/21 16:57 09/23/21 21:54 09/24/21 11:12 Glucose (Fingerstick) 90 mg/dL (70-99) 77 mg/dL (70-99) 130 mg/dL (70-99) 130 mg/dL (70-99) Microbiology 09/21/21 Blood Culture - Preliminary, Resulted NO GROWTH AFTER 3 DAYS 09/19/21 Urine Culture - Final, Complete Medications Current Medications Amoxicillin/ Clavulanate Potassium (Augmentin 875/ 125mg) 1 tab BID PO ; Start 09/24/21 at 09:00 Insulin Glargine (Lantus Syringe) 20 unit QHS SQ Last administered on 09/23/21at 21:58; Start 09/23/21 at 21:00 Polyethylene Glycol (miraLAX PACKET) 17 gm PRN DAILY PRN PO CONSTIPATION; Start 09/23/21 at 16:00 Vitals/I & O Vital Sign - Last 24 Hours 09/23/21 09/23/21 09/23/21 09/23/21 15:00 15:23 19:00 20:15 Temp 98.6 98.3 98.6 98.3 Pulse 85 92 86 Resp 22 B/P (MAP) 125/71 (89) 138/72 118/67 (84) Pulse Ox 95 94 O2 Delivery Nasal Cannula Nasal Cannula Nasal Cannula O2 Flow Rate 5.0 5.0 5.0 09/23/21 09/24/21 09/24/21 23:00 03:00 07:00 Temp 98.1 99.0 98.9 98.1 99.0 98.9 Pulse 89 91 91 Resp 20 20 18 B/P (MAP) 124/69 (87) 132/72 (92) 130/70 (90) Pulse Ox 95 95 96 O2 Delivery Nasal Cannula Nasal Cannula O2 Flow Rate 5.0 5.0 5.0 Intake and Output 09/23/21 09/23/21 09/24/21 15:00 23:00 07:00 Intake Total 240 ml 100 ml 120 ml Output Total 1100 ml 250 ml Balance 240 ml -1000 ml -130 ml Justifications for Admission Other Justification JASMIN CHO MD Sep 24, 2021 11:19
[2021-09-24 12:00] VITALS: BP 127/69
[2021-09-24 15:00] VITALS: BP 114/66
[2021-09-24] MEDS: traMADol 50 MG TABLET PO PRN (18:09)
[2021-09-24 19:00] VITALS: BP 120/70
[2021-09-24] MEDS: ATORVASTATIN CALCIUM 40 MG TABLET. PO SCH (20:54)
[2021-09-24] MEDS: DIVALPROEX EXTENDED RELEASE 500 MG TAB.ER.24H. PO SCH (20:54)
[2021-09-24] MEDS: QUEtiapine 100 MG TABLET. PO SCH (20:55)
[2021-09-24] MEDS: clonazePAM 0.5 MG TABLET PO PRN (20:55)
[2021-09-24] MEDS: INSULIN GLARGINE SYRINGE. SQ SCH (20:56)
[2021-09-24] MEDS: PATCH REMOVAL. MC SCH (21:00)
[2021-09-24 23:44] VITALS: BP 137/75
[2021-09-25 03:57] VITALS: BP 138/79
[2021-09-25 07:00] VITALS: BP 128/70
[2021-09-25 07:51] LABS: BASO % 1 % (0-3); EOS # 0.2 x10^3/uL (0.0-0.7); EOS % 5 % (0-3); HEMATOCRIT 33.7 % (39.0-53.0); LYMPH # 0.9 x10^3/uL (1.0-4.8); LYMPH % 18 % (24-48); MEAN CORPUSCULAR HEMOGLOBIN 28 pg (25-35); MEAN CORPUSCULAR HGB CONC 33 g/dL (31-37); MEAN CORPUSCULAR VOLUME 85 fL (79-100); MONO # 0.6 x10^3/uL (0.0-1.1); MONO % 13 % (0-9); NEUT # 3.1 x10^3/uL (1.8-7.7); NEUT % 64 % (31-73); PLATELET COUNT 224 x10^3/uL (140-400); RED BLOOD COUNT 3.97 x10^6/uL (4.30-5.70); RED CELL DISTRIBUTION WIDTH 14.7 % (11.5-14.5); WHITE BLOOD COUNT 4.8 x10^3/uL (4.0-11.0)
[2021-09-25] MEDS: INSULIN LISPRO 300 UNITS/3 ML VIAL. SQ SCH ×3 (08:00→17:00)
[2021-09-25 08:23] LABS: CALCIUM 8.9 mg/dL (8.5-10.1); CREATININE 0.6 mg/dL (0.7-1.3); GFR 137.4; POTASSIUM 4.1 mmol/L (3.5-5.1)
[2021-09-25] MEDS: ASPIRIN CHEWABLE 81 MG TABLET. PO SCH (10:06)
[2021-09-25] MEDS: ARIPiprazole 5 MG TABLET PO SCH (10:06)
[2021-09-25] MEDS: FENOFIBRATE,MICRONIZED 134 MG CAPSULE PO SCH (10:07)
[2021-09-25] MEDS: ATENOLOL 50 MG TABLET. PO SCH (10:10)
[2021-09-25] MEDS: LACTOBACILLUS RHAMNOSUS GG 1 CAPSULE. PO SCH ×2 (10:10→22:27)
[2021-09-25] MEDS: LISINOPRIL 20 MG TABLET PO SCH (10:10)
[2021-09-25] MEDS: LINAGLIPTIN 5 MG TABLET PO SCH (10:11)
[2021-09-25] MEDS: AMOXICILLIN/K CLAV 875/125MG TABLET. PO SCH ×2 (10:11→22:27)
[2021-09-25] MEDS: CETIRIZINE HCL 10 MG TABLET. PO SCH (10:11)
[2021-09-25] MEDS: POLYETHYLENE GLYCOL 3350 17 GM PACKET. PO PRN (10:12)
[2021-09-25] MEDS: traMADol 50 MG TABLET PO PRN (10:12)
[2021-09-25] MEDS: FAMOTIDINE 20 MG TABLET. PO SCH ×2 (10:12→22:28)
[2021-09-25] MEDS: ENOXAPARIN 40 MG/0.4 ML SYRINGE. SQ SCH (10:12)
[2021-09-25] MEDS: LIDOCAINE (700MG/PATCH) PATCH. TD SCH (10:13)
[2021-09-25 10:54] LABS: % ATYL 1 % (0-0); % BANDS 7 % (0-9); % EOS 6 % (0-5); % LYMPHS 22 % (24-48); % MONOS 11 % (0-10); % MYELOS 1 % (0-0); % SEGS 52 % (35-66); PLT ESTIMATE ADEQUATE (ADEQUATE)
[2021-09-25 10:55] LABS: POLYCHROMASIA SLIGHT
[2021-09-25 11:00] VITALS: BP 128/67
--- NOTE | 2021-09-25 11:57 | CONS ---
DATE OF CONSULTATION: 09/25/2021 PULMONARY CONSULTATION ATTENDING PHYSICIAN: Doug Mccord MD. REASON FOR CONSULTATION: Possible pneumonia and abnormal chest x-ray. HISTORY OF PRESENT ILLNESS: The patient is a 61-year-old male who does not speak Irish. He has a history of diabetes, bipolar disorder, hypertension, hyperlipidemia and schizophrenia. He had a COVID vaccine booster recently. He was not feeling well after discharge. He was having fever and back pain. The patient was seen in the Emergency Room. He underwent imaging study. I have reviewed the patient's CT chest dated 09/23. There are bilateral effusions and some associated atelectasis. There is minimal interstitial infiltrate in the right upper lobe. Findings appear more suggestive of CHF. Consultation requested for further evaluation and management. PAST MEDICAL HISTORY: Diabetes, hypertension, hyperlipidemia. PAST SURGICAL HISTORY: No major surgeries. SOCIAL HISTORY: Former smoker. Lives at home with his sister. REVIEW OF SYSTEMS: Unable to obtain from the patient. ALLERGIES: None. MEDICATIONS: Reviewed as listed in the MRAD including oral Augmentin. PHYSICAL EXAMINATION: VITAL SIGNS: Reviewed. Afebrile, blood pressure stable, pulse ox 93% on 5 liters. NECK: Supple. LUNGS: With diminished breath sounds with few anterior rhonchi. CARDIOVASCULAR: With a regular rate. ABDOMEN: Soft, obese. EXTREMITIES: With signs of venous stasis. No pitting edema. LABORATORY DATA: Reviewed. White cell count 4.8, hemoglobin 11.0 and platelets are 224. BUN 16, creatinine 0.6. His blood glucose on admission was 40. It is back to normal. IMPRESSION: 1. Acute hypoxic respiratory failure, likely secondary to acute diastolic congestive heart failure. 2. Fever, present on admission, likely secondary to COVID vaccine booster. Cannot exclude right upper lobe pneumonia. 3. Abnormal CT chest with bilateral interstitial markings and basal pleural effusion. There is mild interstitial infiltrate in the right upper lobe, which could be all part of congestive heart failure. 4. History of tobaccoism. RECOMMENDATIONS: 1. Discussed with RN. Finish the course of oral Augmentin. 2. Extra IV Lasix. 3. Wean FiO2, keep saturation 92% and above. 4. Follow up chest x-ray post-diuresis. 5. Once oxygen requirement improves, he could be discharged. 6. Discussed with RN. CONY/DARRIAN MCFARLAND: CONY/krystle TID: [id number]
[2021-09-25] MEDS ORDERED: FUROSEMIDE 40 MG/4 ML VIAL. IVP ONE (12:00)
--- NOTE | 2021-09-25 13:29 | PDOC ---
PROGRESS NOTES Date of Service: DATE: 09/25/21 TIME: 13:28 Subjective Subjective feels better today Objective Objective Vital Signs Date Time Temp Pulse Resp B/P (MAP) Pulse Ox O2 Delivery O2 Flow Rate FiO2 09/25/21 11:00 93 Nasal Cannula 4.0 09/25/21 10:10 96 128/70 09/25/21 07:00 98.1 18 98.1 Intake and Output 09/25/21 07:00 Intake Total 200 ml Output Total 1010 ml Balance -810 ml Intake Oral 200 ml Output Urine Total 1010 ml Physical Exam Abdomen: Soft Heart: Normal S1, Normal S2 Extremities: No clubbing General: Alert HEENT: Atraumatic Lungs: Clear to auscultation MUSCULOSKELETAL: No swelling Neck: Supple Neuro: Normal speech Psych/Mental Status: Mental status NL Skin: No breakdown Diagnosis Problem List Problems Medical Problems: (1) Abnormal head CT Status: Acute (2) Diabetes mellitus Status: Acute (3) Fever Status: Acute (4) Generalized weakness Status: Acute Assessment Assessment Problems Medical Problems: (1) Abnormal head CT Status: Acute (2) Diabetes mellitus Status: Acute (3) Fever Status: Acute (4) Generalized weakness Status: Acute FINAL IMPRESSION: 1. Fever. 2. Body aches. 3. Diabetes. 4. Obesity. 5. Hypertension. 6. Schizophrenia. PLAN: iv lasix echo in AM cardiology consult appreciate pulmonary consult. CT chest showed Pneumonia rt upper lung. spoke with pts family, sister positive blood c/s 1 in 2 gram positive,[STREPTOCOCCUS MUTANS] labs ok CT scan abd and pelvis ok PT/OT iv Z osyn, d/c IV Daptomycin Rehab consult Plan Plan of Care Problems Medical Problems: (1) Abnormal head CT Status: Acute (2) Diabetes mellitus Status: Acute (3) Fever Status: Acute (4) Generalized weakness Status: Acute Comment Review of Relevant I have reviewed the following items jayleen (where applicable) has been applied. Labs Laboratory Tests Test 09/24/21 17:04 09/24/21 19:51 09/25/21 06:35 09/25/21 08:08 Glucose (Fingerstick) 193 mg/dL (70-99) 174 mg/dL (70-99) 77 mg/dL (70-99) White Blood Count 4.8 x10^3/uL (4.0-11.0) Red Blood Count 3.97 x10^6/uL (4.30-5.70) Hemoglobin 11.0 g/dL (13.0-17.5) Hematocrit 33.7 % (39.0-53.0) Mean Corpuscular Volume 85 fL (79-100) Mean Corpuscular Hemoglobin 28 pg (25-35) Mean Corpuscular Hemoglobin Concent 33 g/dL (31-37) Red Cell Distribution Width 14.7 % (11.5-14.5) Platelet Count 224 x10^3/uL (140-400) Neutrophils (%) (Auto) 64 % (31-73) Lymphocytes (%) (Auto) 18 % (24-48) Monocytes (%) (Auto) 13 % (0-9) Eosinophils (%) (Auto) 5 % (0-3) Basophils (%) (Auto) 1 % (0-3) Neutrophils # (Auto) 3.1 x10^3/uL (1.8-7.7) Lymphocytes # (Auto) 0.9 x10^3/uL (1.0-4.8) Monocytes # (Auto) 0.6 x10^3/uL (0.0-1.1) Eosinophils # (Auto) 0.2 x10^3/uL (0.0-0.7) Basophils # (Auto) 0.0 x10^3/uL (0.0-0.2) Segmented Neutrophils % 52 % (35-66) Band Neutrophils % 7 % (0-9) Lymphocytes % 22 % (24-48) Atypical Lymphocytes % (Manual) 1 % (0-0) Monocytes % 11 % (0-10) Eosinophils % 6 % (0-5) Myelocytes % 1 % (0-0) Platelet Estimate Adequate (ADEQUATE) Polychromasia Slight Sodium Level 139 mmol/L (136-145) Potassium Level 4.1 mmol/L (3.5-5.1) Chloride Level 104 mmol/L (98-107) Carbon Dioxide Level 26 mmol/L (21-32) Anion Gap 9 (6-14) Blood Urea Nitrogen 16 mg/dL (8-26) Creatinine 0.6 mg/dL (0.7-1.3) Estimated GFR (Cockcroft-Gault) 137.4 Glucose Level 81 mg/dL (70-99) Calcium Level 8.9 mg/dL (8.5-10.1) SW-Hut-D-Type Natriuretic Peptide 423 pg/mL (0-124) Test 09/25/21 11:36 Glucose (Fingerstick) 241 mg/dL (70-99) Microbiology 09/21/21 Blood Culture - Preliminary, Resulted NO GROWTH AFTER 4 DAYS 09/19/21 Urine Culture - Final, Complete Medications Current Medications Furosemide (Lasix) 40 mg 1X ONCE IVP Last administered on 09/25/21at 12:53; Start 09/25/21 at 12:00; Stop 09/25/21 at 12:01; Status DC Vitals/I & O Vital Sign - Last 24 Hours 09/24/21 09/24/21 09/24/21 09/24/21 15:00 18:09 19:00 20:00 Temp 98.4 99.1 98.4 99.1 Pulse 89 91 Resp 20 18 B/P (MAP) 114/66 (82) 120/70 (87) Pulse Ox 94 94 O2 Delivery Nasal Cannula Nasal Cannula Nasal Cannula Nasal Cannula O2 Flow Rate 5.0 4.0 5.0 4.0 09/24/21 09/25/21 09/25/21 09/25/21 23:44 03:57 07:00 10:10 Temp 98.3 98.5 98.1 98.3 98.5 98.1 Pulse 93 96 96 96 Resp 20 18 18 B/P (MAP) 137/75 (95) 138/79 (98) 128/70 (89) 128/70 Pulse Ox 95 94 93 O2 Delivery Nasal Cannula Nasal Cannula Nasal Cannula O2 Flow Rate 5.0 5.0 5.0 09/25/21 09/25/21 09/25/21 10:10 10:12 11:00 Pulse 96 B/P (MAP) 128/70 Pulse Ox 93 O2 Delivery Nasal Cannula Nasal Cannula O2 Flow Rate 4.0 4.0 Intake and Output 09/24/21 09/24/21 09/25/21 15:00 23:00 07:00 Intake Total 200 ml Output Total 860 ml 150 ml Balance 200 ml -860 ml -150 ml Justifications for Admission Other Justification JASMIN CHO MD Sep 25, 2021 13:29
[2021-09-25 15:00] VITALS: BP 119/87
--- NOTE | 2021-09-25 15:22 | PDOC ---
Infectious Disease Note Subjective: Subjective pt resting quietly says feels ok still on 4L O2 by NC Vital Signs: Vital Signs Vital Signs Date Time Temp Pulse Resp B/P (MAP) Pulse Ox O2 Delivery O2 Flow Rate FiO2 09/25/21 11:00 98.1 91 18 128/67 (87) 94 Nasal Cannula 5.0 98.1 Physical Exam: PHYSICAL EXAM GENERAL: Sleepy but arousable male on nasal O2 HEENT: Normocephalic, atraumatic. Anicteric. Bilateral hearing aids. No sinus tenderness. Oral mucosa dry NECK: Supple, no JVD, no lymphadenopathy. LUNGS: Clear bilaterally. No wheezing. HEART: S1, S2. No murmurs. ABDOMEN: Soft, distended, mild tenderness present diffusely, no rebound or guarding. EXTREMITIES: No edema, no cyanosis. Hyperpigmentation both lower extremities DERMATOLOGIC: Warm, dry, no generalized rash. Chronic venous stasis, dermatitis present over both the lower extremities. NEUROLOGIC: Sleepy but arousable moves all 4 extremities Medications: Inpatient Meds: Medications reviewed. Labs: Lab Laboratory Tests Test 09/24/21 17:04 09/24/21 19:51 09/25/21 06:35 09/25/21 08:08 Glucose (Fingerstick) 193 mg/dL (70-99) 174 mg/dL (70-99) 77 mg/dL (70-99) White Blood Count 4.8 x10^3/uL (4.0-11.0) Red Blood Count 3.97 x10^6/uL (4.30-5.70) Hemoglobin 11.0 g/dL (13.0-17.5) Hematocrit 33.7 % (39.0-53.0) Mean Corpuscular Volume 85 fL (79-100) Mean Corpuscular Hemoglobin 28 pg (25-35) Mean Corpuscular Hemoglobin Concent 33 g/dL (31-37) Red Cell Distribution Width 14.7 % (11.5-14.5) Platelet Count 224 x10^3/uL (140-400) Neutrophils (%) (Auto) 64 % (31-73) Lymphocytes (%) (Auto) 18 % (24-48) Monocytes (%) (Auto) 13 % (0-9) Eosinophils (%) (Auto) 5 % (0-3) Basophils (%) (Auto) 1 % (0-3) Neutrophils # (Auto) 3.1 x10^3/uL (1.8-7.7) Lymphocytes # (Auto) 0.9 x10^3/uL (1.0-4.8) Monocytes # (Auto) 0.6 x10^3/uL (0.0-1.1) Eosinophils # (Auto) 0.2 x10^3/uL (0.0-0.7) Basophils # (Auto) 0.0 x10^3/uL (0.0-0.2) Segmented Neutrophils % 52 % (35-66) Band Neutrophils % 7 % (0-9) Lymphocytes % 22 % (24-48) Atypical Lymphocytes % (Manual) 1 % (0-0) Monocytes % 11 % (0-10) Eosinophils % 6 % (0-5) Myelocytes % 1 % (0-0) Platelet Estimate Adequate (ADEQUATE) Polychromasia Slight Sodium Level 139 mmol/L (136-145) Potassium Level 4.1 mmol/L (3.5-5.1) Chloride Level 104 mmol/L (98-107) Carbon Dioxide Level 26 mmol/L (21-32) Anion Gap 9 (6-14) Blood Urea Nitrogen 16 mg/dL (8-26) Creatinine 0.6 mg/dL (0.7-1.3) Estimated GFR (Cockcroft-Gault) 137.4 Glucose Level 81 mg/dL (70-99) Calcium Level 8.9 mg/dL (8.5-10.1) [id number]-Type Natriuretic Peptide 423 pg/mL (0-124) Test 09/25/21 11:36 Glucose (Fingerstick) 241 mg/dL (70-99) Micro Blood culture GPC pending CT head noted CT abdomen reviewed IMPRESSION: 1. Moderate to large amount of colonic stool. Correlate for constipation. 2. Hepatomegaly and hepatic steatosis. 3. Small hypodense lesions within the liver. These are too small to ch aracterize. In the absence of known malignancy, these are likely cysts or hemangiomas. Liver protocol MRI can be performed to confirm benignity if there is clinical concern. 4. Prominent right renal collecting system likely due to a distended urinary bladder. No obstructing lesion is seen. 5. Simple right renal cyst. Follow-up is not routinely performed for simple cysts. Objective: Assessment: 1. Fever resolved 2. CT showing partial opacification of the left posterior mastoid air cells with partial erosion of the bony margins suggesting underlying mass lesion or possible vascular malformation. No previous CT for comparison. Mild headache letter will be viral 3. Status post COVID booster vaccine with the above symptoms. 4. Gram-positive cocci bacteremia in 1 out of 2 bottles present on admission Strep mutans, could be a contaminant 5. Diabetes mellitus. 6. Generalized myalgia and achiness. 7. Schizophrenia.Bipolar. 8. Hyperlipidemia. 9. Chronic back pain. 10. Abdominal discomfort, constipation Plan: Plan of Care Change Zosyn to Augmentin PT and OT as tolerated Monitor labs and cultures Continue supportive care Discussed with CARRINGTON ANDINO MD Sep 25, 2021 15:22
[2021-09-25 19:00] VITALS: BP 116/63
[2021-09-25] MEDS: PATCH REMOVAL. MC SCH (21:00)
[2021-09-25] MEDS: QUEtiapine 100 MG TABLET. PO SCH (22:27)
[2021-09-25] MEDS: DIVALPROEX EXTENDED RELEASE 500 MG TAB.ER.24H. PO SCH (22:28)
[2021-09-25] MEDS: ATORVASTATIN CALCIUM 40 MG TABLET. PO SCH (22:28)
[2021-09-25 23:30] VITALS: BP 110/66
[2021-09-25] MEDS: INSULIN GLARGINE SYRINGE. SQ SCH (23:37)
[2021-09-26 03:34] VITALS: BP 113/63
[2021-09-26 07:00] VITALS: BP 128/77
[2021-09-26] MEDS: INSULIN LISPRO 300 UNITS/3 ML VIAL. SQ SCH ×3 (08:00→17:57)
[2021-09-26 08:22] LABS: CALCIUM 9.2 mg/dL (8.5-10.1); CREATININE 0.6 mg/dL (0.7-1.3); GFR 137.4
--- NOTE | 2021-09-26 08:52 | PDOC ---
Infectious Disease Note Subjective: Subjective Patient alert awake, complains of back pain, denies cough or chest pain fever, nausea, vomiting On 4 L O2 by nasal cannula Vital Signs: Vital Signs Vital Signs Date Time Temp Pulse Resp B/P (MAP) Pulse Ox O2 Delivery O2 Flow Rate FiO2 09/26/21 07:00 97.9 89 20 128/77 (94) 94 Nasal Cannula 3.0 97.9 Physical Exam: PHYSICAL EXAM GENERAL: Sleepy but arousable male on nasal O2 HEENT: Normocephalic, atraumatic. Anicteric. Bilateral hearing aids. No sinus tenderness. Oral mucosa dry NECK: Supple, no JVD, no lymphadenopathy. LUNGS: Clear bilaterally. No wheezing. HEART: S1, S2. No murmurs. ABDOMEN: Soft, distended, mild tenderness present diffusely, no rebound or guarding. EXTREMITIES: No edema, no cyanosis. Hyperpigmentation both lower extremities DERMATOLOGIC: Warm, dry, no generalized rash. Chronic venous stasis, dermatitis present over both the lower extremities. NEUROLOGIC: Sleepy but arousable moves all 4 extremities Medications: Inpatient Meds: Medications reviewed. Labs: Lab Laboratory Tests Test 09/25/21 11:36 09/25/21 19:40 09/26/21 07:14 09/26/21 07:20 Glucose (Fingerstick) 241 mg/dL (70-99) 274 mg/dL (70-99) 122 mg/dL (70-99) Sodium Level 139 mmol/L (136-145) Potassium Level 4.0 mmol/L (3.5-5.1) Chloride Level 103 mmol/L (98-107) Carbon Dioxide Level 28 mmol/L (21-32) Anion Gap 8 (6-14) Blood Urea Nitrogen 18 mg/dL (8-26) Creatinine 0.6 mg/dL (0.7-1.3) Estimated GFR (Cockcroft-Gault) 137.4 Glucose Level 104 mg/dL (70-99) Calcium Level 9.2 mg/dL (8.5-10.1) Micro Blood culture GPC pending CT head noted CT abdomen reviewed IMPRESSION: 1. Moderate to large amount of colonic stool. Correlate for constipation. 2. Hepatomegaly and hepatic steatosis. 3. Small hypodense lesions within the liver. These are too small to characterize. In the absence of known malignancy, these are likely cysts or hemangiomas. Liver protocol MRI can be performed to confirm benignity if there is clinical concern. 4. Prominent right renal collecting system likely due to a distended urinary bladder. No obstructing lesion is seen. 5. Simple right renal cyst. Follow-up is not routinely performed for simple cysts. Objective: Assessment: 1. Fever resolved 2. CT showing partial opacification of the left posterior mastoid air cells with partial erosion of the bony margins suggesting underlying mass lesion or possible vascular malformation. No previous CT for comparison. Mild headache letter will be viral 3. Status post COVID booster vaccine with the above symptoms. 4. Gram-positive cocci bacteremia in 1 out of 2 bottles present on admission Strep mutans, could be a contaminant. Follow-up blood cultures negative 5. Diabetes mellitus. 6. Generalized myalgia and achiness. 7. Schizophrenia.Bipolar. 8. Hyperlipidemia. 9. Chronic back pain. 10. Abdominal discomfort, constipation Possible aspiration pneumonia Plan: Plan of Care Continue Augmentin was on Zosyn Maintain aspiration precautions PT and OT as tolerated Monitor labs and cultures Continue supportive care Discussed with CARRINGTON ANDINO MD Sep 26, 2021 08:52
--- NOTE | 2021-09-26 09:15 | PDOC ---
PROGRESS NOTES Date of Service DATE: 09/26/21 TIME: 09:12 Subjective Subjective He denies any significant low back pain. Objective Objective Vital Signs Date Time Temp Pulse Resp B/P (MAP) Pulse Ox O2 Delivery O2 Flow Rate FiO2 09/26/21 07:00 97.9 89 20 128/77 (94) 94 Nasal Cannula 3.0 97.9 Intake and Output 09/26/21 07:00 Intake Total 400 ml Output Total 2690 ml Balance -2290 ml Intake Oral 400 ml Output Urine Total 2690 ml Physical Exam Physical Exam He is alert,supine in bed and receiving oxygen by nasal canula and he requires 2 person assistance for transfers and his knees buckle while standing up as per physical therapy note. Assessment Assessment Problems Medical Problems: (1) Abnormal head CT Status: Acute (2) Diabetes mellitus Status: Acute (3) Fever Status: Acute (4) Generalized weakness Status: Acute Plan Plan of Care To continue present rehab efforts as tolerated and he probably needs to go to a correction facility for continued care when medically stable,as he a a flight of stairs to manage at home. Comment Review of Relevant I have reviewed the following items jayleen (where applicable) has been applied. Labs Laboratory Tests Test 09/24/21 11:12 09/24/21 17:04 09/24/21 19:51 09/25/21 06:35 Glucose (Fingerstick) 130 mg/dL (70-99) 193 mg/dL (70-99) 174 mg/dL (70-99) White Blood Count 4.8 x10^3/uL (4.0-11.0) Red Blood Count 3.97 x10^6/uL (4.30-5.70) Hemoglobin 11.0 g/dL (13.0-17.5) Hematocrit 33.7 % (39.0-53.0) Mean Corpuscular Volume 85 fL (79-100) Mean Corpuscular Hemoglobin 28 pg (25-35) Mean Corpuscular Hemoglobin Concent 33 g/dL (31-37) Red Cell Distribution Width 14.7 % (11.5-14.5) Platelet Count 224 x10^3/uL (140-400) Neutrophils (%) (Auto) 64 % (31-73) Lymphocytes (%) (Auto) 18 % (24-48) Monocytes (%) (Auto) 13 % (0-9) Eosinophils (%) (Auto) 5 % (0-3) Basophils (%) (Auto) 1 % (0-3) Neutrophils # (Auto) 3.1 x10^3/uL (1.8-7.7) Lymphocytes # (Auto) 0.9 x10^3/uL (1.0-4.8) Monocytes # (Auto) 0.6 x10^3/uL (0.0-1.1) Eosinophils # (Auto) 0.2 x10^3/uL (0.0-0.7) Basophils # (Auto) 0.0 x10^3/uL (0.0-0.2) Segmented Neutrophils % 52 % (35-66) Band Neutrophils % 7 % (0-9) Lymphocytes % 22 % (24-48) Atypical Lymphocytes % (Manual) 1 % (0-0) Monocytes % 11 % (0-10) Eosinophils % 6 % (0-5) Myelocytes % 1 % (0-0) Platelet Estimate Adequate (ADEQUATE) Polychromasia Slight Sodium Level 139 mmol/L (136-145) Potassium Level 4.1 mmol/L (3.5-5.1) Chloride Level 104 mmol/L (98-107) Carbon Dioxide Level 26 mmol/L (21-32) Anion Gap 9 (6-14) Blood Urea Nitrogen 16 mg/dL (8-26) Creatinine 0.6 mg/dL (0.7-1.3) Estimated GFR (Cockcroft-Gault) 137.4 Glucose Level 81 mg/dL (70-99) Calcium Level 8.9 mg/dL (8.5-10.1) [id number] Natriuretic Peptide 423 pg/mL (0-124) Test 09/25/21 08:08 09/25/21 11:36 09/25/21 19:40 09/26/21 07:14 Glucose (Fingerstick) 77 mg/dL (70-99) 241 mg/dL (70-99) 274 mg/dL (70-99) 122 mg/dL (70-99) Test 09/26/21 07:20 Sodium Level 139 mmol/L (136-145) Potassium Level 4.0 mmol/L (3.5-5.1) Chloride Level 103 mmol/L (98-107) Carbon Dioxide Level 28 mmol/L (21-32) Anion Gap 8 (6-14) Blood Urea Nitrogen 18 mg/dL (8-26) Creatinine 0.6 mg/dL (0.7-1.3) Estimated GFR (Cockcroft-Gault) 137.4 Glucose Level 104 mg/dL (70-99) Calcium Level 9.2 mg/dL (8.5-10.1) Laboratory Tests Test 09/25/21 11:36 09/25/21 19:40 09/26/21 07:14 09/26/21 07:20 Glucose (Fingerstick) 241 mg/dL (70-99) 274 mg/dL (70-99) 122 mg/dL (70-99) Sodium Level 139 mmol/L (136-145) Potassium Level 4.0 mmol/L (3.5-5.1) Chloride Level 103 mmol/L (98-107) Carbon Dioxide Level 28 mmol/L (21-32) Anion Gap 8 (6-14) Blood Urea Nitrogen 18 mg/dL (8-26) Creatinine 0.6 mg/dL (0.7-1.3) Estimated GFR (Cockcroft-Gault) 137.4 Glucose Level 104 mg/dL (70-99) Calcium Level 9.2 mg/dL (8.5-10.1) Microbiology 09/24/21 Gram Stain Evaluation - Final, Resulted 09/24/21 Respiratory Culture, Resulted Pending 09/21/21 Blood Culture - Final, Complete NO GROWTH AFTER 5 DAYS 09/19/21 Urine Culture - Final, Complete Medications Current Medications Acetaminophen (Tylenol) 1,000 mg 1X ONCE PO Last administered on 09/19/21at 10:02; Start 09/19/21 at 10:00; Stop 09/19/21 at 10:01; Status DC Sodium Chloride 1,000 ml @ 1,000 mls/hr 1X ONCE IV Last administered on 09/19/21at 10:02; Start 09/19/21 at 10:00; Stop 09/19/21 at 10:59; Status DC Fentanyl Citrate (Fentanyl 2ml Vial) 50 mcg 1X ONCE IVP Last administered on 09/19/21at 11:44; Start 09/19/21 at 11:00; Stop 09/19/21 at 11:01; Status DC Ibuprofen (Motrin) 800 mg 1X ONCE PO Last administered on 09/19/21at 15:25; Start 09/19/21 at 15:15; Stop 09/19/21 at 15:16; Status DC Ondansetron HCl (Zofran) 4 mg PRN Q8HRS PRN IVP NAUSEA/VOMITING; Start 09/19/21 at 15:15; Stop 09/20/21 at 15:14; Status DC Sodium Chloride 1,000 ml @ 75 mls/hr 1X ONCE IV Last administered on 09/19/21at 15:28; Start 09/19/21 at 15:15; Stop 09/20/21 at 04:34; Status DC Acetaminophen (Tylenol) 650 mg PRN Q4HRS PRN PO MILD PAIN / TEMP > 100.3'F Last administered on 09/23/21at 15:22; Start 09/19/21 at 15:15 Famotidine (Pepcid) 20 mg BID PO Last administered on 09/25/21at 22:28; Start 09/19/21 at 21:00 Insulin Human Lispro (HumaLOG) 0-5 UNITS TIDWMEALS SQ Last administered on 09/25/21at 12:50; Start 09/19/21 at 17:00 Dextrose (Dextrose 50%-Water Syringe) 12.5 gm PRN Q15MIN PRN IV SEE COMMENTS Last administered on 09/23/21at 08:27; Start 09/19/21 at 17:00 Aspirin (Aspirin Chewable) 81 mg DAILY PO Last administered on 09/25/21at 10:06; Start 09/20/21 at 09:00 Atenolol (Tenormin) 50 mg DAILY PO Last administered on 09/25/21at 10:10; Start 09/20/21 at 09:00 Atorvastatin Calcium (Lipitor) 40 mg HS PO Last administered on 09/25/21at 22:28; Start 09/20/21 at 21:00 Cetirizine HCl (ZyrTEC) 10 mg DAILY PO Last administered on 09/25/21at 10:11; Start 09/20/21 at 09:00 Divalproex Sodium (Depakote Er) 2,000 mg QHS PO Last administered on 09/25/21at 22:28; Start 09/20/21 at 21:00 Lisinopril (Prinivil) 40 mg DAILY PO Last administered on 09/25/21at 10:10; Start 09/20/21 at 09:00 Ondansetron HCl (Zofran Odt) 4 mg PRN Q6HRS PRN PO NAUSEA 1ST CHOICE; Start 09/20/21 at 06:30 Aripiprazole (Abilify) 30 mg DAILY PO Last administered on 09/25/21at 10:06; Start 09/20/21 at 09:00 Clonazepam (KlonoPIN) 1 mg PRN DAILY PRN PO ANXIETY / AGITATION Last administered on 09/24/21at 20:55; Start 09/20/21 at 06:45 Non-Formulary Medication (Dapagliflozin Propanediol (Farxiga)) 10 mg DAILY PO ; Start 09/20/21 at 09:00; Stop 09/22/21 at 07:08; Status DC Non-Formulary Medication (Dulaglutide (Trulicity)) 0.5 mg WEEKLY SQ ; Start 09/20/21 at 09:00; Stop 09/22/21 at 07:08; Status DC Fenofibrate (Lofibra) 134 mg DAILY PO Last administered on 09/25/21at 10:07; Start 09/20/21 at 09:00 Glimepiride (Amaryl) 4 mg BID PO Last administered on 09/22/21at 22:24; Start 09/20/21 at 09:00; Stop 09/23/21 at 10:59; Status DC Non-Formulary Medication (Icosapent Ethyl (Vascepa)) 2 gm BID PO ; Start 09/20/21 at 09:00; Stop 09/22/21 at 07:08; Status DC Insulin Glargine (Lantus Syringe) 35 unit QHS SQ Last administered on 09/22/21at 22:30; Start 09/20/21 at 21:00; Stop 09/23/21 at 10:59; Status DC Metformin HCl (Glucophage) 1,000 mg BIDWMEALS PO Last administered on 09/20/21at 08:46; Start 09/20/21 at 08:00; Stop 09/20/21 at 09:37; Status DC Quetiapine Fumarate (SEROquel) 800 mg HS PO Last administered on 09/25/21at 22:27; Start 09/20/21 at 21:00 Linagliptin (Tradjenta) 5 mg DAILY PO Last administered on 09/25/21at 10:11; Start 09/20/21 at 09:00 Triamterene/HCTZ (Maxzide 37.5/ 25mg) 1 tab DAILY PO Last administered on 09/20/21at 08:45; Start 09/20/21 at 09:00; Stop 09/20/21 at 09:37; Status DC Sodium Chloride 1,000 ml @ 50 mls/hr Q20H IV Last administered on 09/21/21at 13:36; Start 09/20/21 at 09:30; Stop 09/21/21 at 16:00; Status DC Iohexol (Omnipaque 240 Mg/ml) 50 ml 1X ONCE PO Last administered on 09/20/21at 09:45; Start 09/20/21 at 09:45; Stop 09/20/21 at 09:46; Status DC Iohexol (Omnipaque 300 Mg/ml) 75 ml 1X ONCE IV Last administered on 09/20/21at 09:45; Start 09/20/21 at 09:45; Stop 09/20/21 at 09:46; Status DC Piperacillin Sod/ Tazobactam Sod 3.375 gm/Sodium Chloride 50 ml @ 100 mls/hr Q6HRS IV Last administered on 09/24/21at 06:12; Start 09/20/21 at 12:00; Stop 09/24/21 at 07:54; Status DC Lactobacillus Rhamnosus (Culturelle) 1 cap BID PO Last administered on 09/25/21at 22:27; Start 09/20/21 at 21:00 Daptomycin 570 mg/ Sodium Chloride 50 ml @ 100 mls/hr Q24H IV Last administered on 09/21/21at 22:07; Start 09/20/21 at 20:00; Stop 09/22/21 at 18:09; Status DC Enoxaparin Sodium (Lovenox 40mg Syringe) 40 mg Q24H SQ Last administered on 09/25/21at 10:12; Start 09/21/21 at 09:00 Tramadol HCl (Ultram) 50 mg PRN Q6HRS PRN PO MODERATE PAIN Last administered on 09/25/21at 10:12; Start 09/22/21 at 09:15 Lidocaine (Lidoderm) 1 patch DAILY TD Last administered on 09/25/21at 10:13; Start 09/22/21 at 11:00 Miscellaneous (Lidoderm Patch Removal) 1 ea QHS MC Last administered on 09/25/21at 21:00; Start 09/22/21 at 21:00 Methylprednisolone Acetate (DEPO-Medrol 40MG VIAL) 40 mg 1X ONCE IM ; Start 09/22/21 at 11:00; Stop 09/22/21 at 11:01; Status DC Methylprednisolone Acetate (DEPO-Medrol 40MG VIAL) 40 mg 1X ONCE INJ ; Start 09/22/21 at 11:00; Stop 09/22/21 at 11:01; Status DC Bupivacaine HCl (Sensorcaine-Mpf 0.25%) 10 ml 1X ONCE IJ ; Start 09/22/21 at 11:00; Stop 09/22/21 at 11:01; Status DC Insulin Glargine (Lantus Syringe) 20 unit QHS SQ Last administered on 09/25/21at 23:37; Start 09/23/21 at 21:00 Polyethylene Glycol (miraLAX PACKET) 17 gm PRN DAILY PRN PO CONSTIPATION Last administered on 09/25/21at 10:12; Start 09/23/21 at 16:00 Amoxicillin/ Clavulanate Potassium (Augmentin 875/ 125mg) 1 tab BID PO Last administered on 09/25/21at 22:27; Start 09/24/21 at 09:00 Furosemide (Lasix) 40 mg 1X ONCE IVP Last administered on 09/25/21at 12:53; Start 09/25/21 at 12:00; Stop 09/25/21 at 12:01; Status DC Active Scripts Active Pepcid (Famotidine) 20 Mg Tablet 20 Mg PO BID Ondansetron Odt (Ondansetron) 4 Mg Tab.rapdis 1 Tab PO PRN Q6-8HRS PRN Reported Tresiba (Insulin Degludec) 100 Unit/1 Ml Vial 35 Unit SQ QHS Trulicity (Dulaglutide) 0.75 Mg/0.5 Ml Pen.injctr 0.5 Mg SQ WEEKLY Metformin Hcl 1,000 Mg Tablet 1,000 Mg PO BIDWMEALS Aspirin 81 Mg Tab.chew 81 Mg PO DAILY Lisinopril 40 Mg Tablet 40 Mg PO DAILY Januvia (Sitagliptin Phosphate) 100 Mg Tablet 100 Mg PO DAILY Glimepiride 4 Mg Tablet 4 Mg PO BID Fenofibrate (Fenofibrate Nanocrystallized) 145 Mg Tablet 145 Mg PO DAILY Farxiga (Dapagliflozin Propanediol) 10 Mg Tablet 10 Mg PO DAILY Depakote Er (Divalproex Sodium) 500 Mg Tab.er.24h 2,000 Mg PO QHS Clonazepam 1 Mg Tablet 1 Mg PO PRN DAILY PRN Cetirizine Hcl 10 Mg Tablet 10 Mg PO DAILY Atorvastatin Calcium 40 Mg Tablet 40 Mg PO HS Atenolol 50 Mg Tablet 50 Mg PO DAILY Abilify (Aripiprazole) 30 Mg Tablet 30 Mg PO DAILY Vascepa (Icosapent Ethyl) 1 Gm Capsule 2 Gm PO BID Triamterene-Hctz 37.5-25 Mg Cp (Triamterene/Hydrochlorothiazid) 1 Each Capsule 1 Cap PO DAILY Quetiapine Fumarate 400 Mg Tablet 800 Mg PO HS Vitals/I & O Vital Sign - Last 24 Hours 09/25/21 09/25/21 09/25/21 09/25/21 10:10 10:10 10:12 11:00 Pulse 96 96 B/P (MAP) 128/70 128/70 Pulse Ox 93 O2 Delivery Nasal Cannula Nasal Cannula O2 Flow Rate 4.0 4.0 09/25/21 09/25/21 09/25/21 09/25/21 11:00 15:00 19:00 20:00 Temp 98.1 99.3 98.0 98.1 99.3 98.0 Pulse 91 87 96 Resp 18 18 18 B/P (MAP) 128/67 (87) 119/87 (98) 116/63 (80) Pulse Ox 94 93 94 O2 Delivery Nasal Cannula Nasal Cannula Nasal Cannula Nasal Cannula O2 Flow Rate 5.0 5.0 5.0 3.0 09/25/21 09/26/21 09/26/21 23:30 03:34 07:00 Temp 98.2 98.1 97.9 98.2 98.1 97.9 Pulse 100 97 89 Resp 18 18 20 B/P (MAP) 110/66 (81) 113/63 (80) 128/77 (94) Pulse Ox 94 95 94 O2 Delivery Nasal Cannula Nasal Cannula Nasal Cannula O2 Flow Rate 3.0 3.0 3.0 Intake and Output 09/25/21 09/25/21 09/26/21 15:00 23:00 07:00 Intake Total 400 ml Output Total 960 ml 980 ml 750 ml Balance -560 ml -980 ml -750 ml Justifications for Admission Other Justification KRYSTAL CARRANZA MD Sep 26, 2021 09:15
--- NOTE | 2021-09-26 09:26 | PDOC ---
PROGRESS NOTES Date of Service: DATE: 09/26/21 TIME: 09:25 Subjective Subjective feeling better Objective Objective Vital Signs Date Time Temp Pulse Resp B/P (MAP) Pulse Ox O2 Delivery O2 Flow Rate FiO2 09/26/21 07:00 97.9 89 20 128/77 (94) 94 Nasal Cannula 3.0 97.9 Intake and Output 09/26/21 07:00 Intake Total 400 ml Output Total 2690 ml Balance -2290 ml Intake Oral 400 ml Output Urine Total 2690 ml Physical Exam Abdomen: Soft Heart: Normal S1, Normal S2 Extremities: No clubbing General: Alert HEENT: Atraumatic Lungs: Clear to auscultation MUSCULOSKELETAL: No swelling Neck: Supple Neuro: Normal speech Psych/Mental Status: Mental status NL Skin: No breakdown Diagnosis Problem List Problems Medical Problems: (1) Abnormal head CT Status: Acute (2) Diabetes mellitus Status: Acute (3) Fever Status: Acute (4) Generalized weakness Status: Acute Assessment Assessment Problems Medical Problems: (1) Abnormal head CT Status: Acute (2) Diabetes mellitus Status: Acute (3) Fever Status: Acute (4) Generalized weakness Status: Acute FINAL IMPRESSION: 1. Fever. 2. Body aches. 3. Diabetes. 4. Obesity. 5. Hypertension. 6. Schizophrenia. PLAN:SNU screen started on dexamethasone. spoke with pulmonary iv lasix for chf echo today cardiology consult appreciate pulmonary consult. PT/OT Rehab consult Plan Plan of Care Problems Medical Problems: (1) Abnormal head CT Status: Acute (2) Diabetes mellitus Status: Acute (3) Fever Status: Acute (4) Generalized weakness Status: Acute Comment Review of Relevant I have reviewed the following items jayleen (where applicable) has been applied. Labs Laboratory Tests Test 09/25/21 11:36 09/25/21 19:40 09/26/21 07:14 09/26/21 07:20 Glucose (Fingerstick) 241 mg/dL (70-99) 274 mg/dL (70-99) 122 mg/dL (70-99) Sodium Level 139 mmol/L (136-145) Potassium Level 4.0 mmol/L (3.5-5.1) Chloride Level 103 mmol/L (98-107) Carbon Dioxide Level 28 mmol/L (21-32) Anion Gap 8 (6-14) Blood Urea Nitrogen 18 mg/dL (8-26) Creatinine 0.6 mg/dL (0.7-1.3) Estimated GFR (Cockcroft-Gault) 137.4 Glucose Level 104 mg/dL (70-99) Calcium Level 9.2 mg/dL (8.5-10.1) Microbiology 09/24/21 Gram Stain Evaluation - Final, Resulted 09/24/21 Respiratory Culture, Resulted Pending 09/21/21 Blood Culture - Final, Complete NO GROWTH AFTER 5 DAYS 09/19/21 Urine Culture - Final, Complete Medications Current Medications Furosemide (Lasix) 40 mg 1X ONCE IVP Last administered on 09/25/21at 12:53; Start 09/25/21 at 12:00; Stop 09/25/21 at 12:01; Status DC Vitals/I & O Vital Sign - Last 24 Hours 09/25/21 09/25/21 09/25/21 09/25/21 10:10 10:10 10:12 11:00 Pulse 96 96 B/P (MAP) 128/70 128/70 Pulse Ox 93 O2 Delivery Nasal Cannula Nasal Cannula O2 Flow Rate 4.0 4.0 09/25/21 09/25/21 09/25/21 09/25/21 11:00 15:00 19:00 20:00 Temp 98.1 99.3 98.0 98.1 99.3 98.0 Pulse 91 87 96 Resp 18 18 18 B/P (MAP) 128/67 (87) 119/87 (98) 116/63 (80) Pulse Ox 94 93 94 O2 Delivery Nasal Cannula Nasal Cannula Nasal Cannula Nasal Cannula O2 Flow Rate 5.0 5.0 5.0 3.0 09/25/21 09/26/21 09/26/21 23:30 03:34 07:00 Temp 98.2 98.1 97.9 98.2 98.1 97.9 Pulse 100 97 89 Resp 18 18 20 B/P (MAP) 110/66 (81) 113/63 (80) 128/77 (94) Pulse Ox 94 95 94 O2 Delivery Nasal Cannula Nasal Cannula Nasal Cannula O2 Flow Rate 3.0 3.0 3.0 Intake and Output 09/25/21 09/25/21 09/26/21 15:00 23:00 07:00 Intake Total 400 ml Output Total 960 ml 980 ml 750 ml Balance -560 ml -980 ml -750 ml Justifications for Admission Other Justification JASMIN CHO MD Sep 26, 2021 09:26
[2021-09-26] MEDS ORDERED: DEXAMETHASONE 4 MG TABLET PO ONE (09:30)
[2021-09-26] MEDS: AMOXICILLIN/K CLAV 875/125MG TABLET. PO SCH ×2 (09:33→22:43)
[2021-09-26] MEDS: ARIPiprazole 5 MG TABLET PO SCH (09:33)
[2021-09-26] MEDS: FENOFIBRATE,MICRONIZED 134 MG CAPSULE PO SCH (09:33)
[2021-09-26] MEDS: LACTOBACILLUS RHAMNOSUS GG 1 CAPSULE. PO SCH ×2 (09:34→22:44)
[2021-09-26] MEDS: LINAGLIPTIN 5 MG TABLET PO SCH (09:34)
[2021-09-26] MEDS: CETIRIZINE HCL 10 MG TABLET. PO SCH (09:34)
[2021-09-26] MEDS: FAMOTIDINE 20 MG TABLET. PO SCH ×2 (09:34→22:44)
[2021-09-26] MEDS: ASPIRIN CHEWABLE 81 MG TABLET. PO SCH (09:34)
[2021-09-26] MEDS: ATENOLOL 50 MG TABLET. PO SCH (09:34)
[2021-09-26] MEDS: traMADol 50 MG TABLET PO PRN (09:35)
[2021-09-26] MEDS: LIDOCAINE (700MG/PATCH) PATCH. TD SCH (09:35)
[2021-09-26] MEDS: LISINOPRIL 20 MG TABLET PO SCH (09:35)
--- NOTE | 2021-09-26 09:36 | PDOC ---
PULMONARY PROGRESS NOTES DATE: 09/26/21 TIME: 09:34 Subjective Denies any shortness of breath. Currently down to 3 L of oxygen via nasal cannula. Vitals Vital Signs Date Time Temp Pulse Resp B/P (MAP) Pulse Ox O2 Delivery O2 Flow Rate FiO2 09/26/21 07:00 97.9 89 20 128/77 (94) 94 Nasal Cannula 3.0 97.9 General: Alert, No acute distress Lungs: Clear Cardiovascular: S1 Abdomen: Soft, Other (Obese) Neuro Exam: Alert Extremities: No Edema Skin: Warm Labs Laboratory Tests Test 09/24/21 11:12 09/24/21 17:04 09/24/21 19:51 09/25/21 06:35 Glucose (Fingerstick) 130 mg/dL (70-99) 193 mg/dL (70-99) 174 mg/dL (70-99) White Blood Count 4.8 x10^3/uL (4.0-11.0) Red Blood Count 3.97 x10^6/uL (4.30-5.70) Hemoglobin 11.0 g/dL (13.0-17.5) Hematocrit 33.7 % (39.0-53.0) Mean Corpuscular Volume 85 fL (79-100) Mean Corpuscular Hemoglobin 28 pg (25-35) Mean Corpuscular Hemoglobin Concent 33 g/dL (31-37) Red Cell Distribution Width 14.7 % (11.5-14.5) Platelet Count 224 x10^3/uL (140-400) Neutrophils (%) (Auto) 64 % (31-73) Lymphocytes (%) (Auto) 18 % (24-48) Monocytes (%) (Auto) 13 % (0-9) Eosinophils (%) (Auto) 5 % (0-3) Basophils (%) (Auto) 1 % (0-3) Neutrophils # (Auto) 3.1 x10^3/uL (1.8-7.7) Lymphocytes # (Auto) 0.9 x10^3/uL (1.0-4.8) Monocytes # (Auto) 0.6 x10^3/uL (0.0-1.1) Eosinophils # (Auto) 0.2 x10^3/uL (0.0-0.7) Basophils # (Auto) 0.0 x10^3/uL (0.0-0.2) Segmented Neutrophils % 52 % (35-66) Band Neutrophils % 7 % (0-9) Lymphocytes % 22 % (24-48) Atypical Lymphocytes % (Manual) 1 % (0-0) Monocytes % 11 % (0-10) Eosinophils % 6 % (0-5) Myelocytes % 1 % (0-0) Platelet Estimate Adequate (ADEQUATE) Polychromasia Slight Sodium Level 139 mmol/L (136-145) Potassium Level 4.1 mmol/L (3.5-5.1) Chloride Level 104 mmol/L (98-107) Carbon Dioxide Level 26 mmol/L (21-32) Anion Gap 9 (6-14) Blood Urea Nitrogen 16 mg/dL (8-26) Creatinine 0.6 mg/dL (0.7-1.3) Estimated GFR (Cockcroft-Gault) 137.4 Glucose Level 81 mg/dL (70-99) Calcium Level 8.9 mg/dL (8.5-10.1) [id number]-Ukm-[id number]-Type Natriuretic Peptide 423 pg/mL (0-124) Test 09/25/21 08:08 09/25/21 11:36 09/25/21 19:40 09/26/21 07:14 Glucose (Fingerstick) 77 mg/dL (70-99) 241 mg/dL (70-99) 274 mg/dL (70-99) 122 mg/dL (70-99) Test 09/26/21 07:20 Sodium Level 139 mmol/L (136-145) Potassium Level 4.0 mmol/L (3.5-5.1) Chloride Level 103 mmol/L (98-107) Carbon Dioxide Level 28 mmol/L (21-32) Anion Gap 8 (6-14) Blood Urea Nitrogen 18 mg/dL (8-26) Creatinine 0.6 mg/dL (0.7-1.3) Estimated GFR (Cockcroft-Gault) 137.4 Glucose Level 104 mg/dL (70-99) Calcium Level 9.2 mg/dL (8.5-10.1) Laboratory Tests Test 09/25/21 11:36 09/25/21 19:40 09/26/21 07:14 09/26/21 07:20 Glucose (Fingerstick) 241 mg/dL (70-99) 274 mg/dL (70-99) 122 mg/dL (70-99) Sodium Level 139 mmol/L (136-145) Potassium Level 4.0 mmol/L (3.5-5.1) Chloride Level 103 mmol/L (98-107) Carbon Dioxide Level 28 mmol/L (21-32) Anion Gap 8 (6-14) Blood Urea Nitrogen 18 mg/dL (8-26) Creatinine 0.6 mg/dL (0.7-1.3) Estimated GFR (Cockcroft-Gault) 137.4 Glucose Level 104 mg/dL (70-99) Calcium Level 9.2 mg/dL (8.5-10.1) Medications Active Scripts Medications Dose Route/Sig Max Daily Dose Days Date Category Tresiba (Insulin Degludec) 100 Unit/1 Ml Vial 35 Unit SQ QHS 09/19/21 Reported Trulicity (Dulaglutide) 0.75 Mg/0.5 Ml Pen.injctr 0.5 Mg SQ WEEKLY 09/19/21 Reported Metformin Hcl 1,000 Mg Tablet 1,000 Mg PO BIDWMEALS 09/19/21 Reported Aspirin 81 Mg Tab.chew 81 Mg PO DAILY 09/19/21 Reported Lisinopril 40 Mg Tablet 40 Mg PO DAILY 09/19/21 Reported Januvia (Sitagliptin Phosphate) 100 Mg Tablet 100 Mg PO DAILY 09/19/21 Reported Glimepiride 4 Mg Tablet 4 Mg PO BID 09/19/21 Reported Fenofibrate (Fenofibrate Nanocrystallized) 145 Mg Tablet 145 Mg PO DAILY 09/19/21 Reported Farxiga (Dapagliflozin Propanediol) 10 Mg Tablet 10 Mg PO DAILY 09/19/21 Reported Depakote Er (Divalproex Sodium) 500 Mg Tab.er.24h 2,000 Mg PO QHS 09/19/21 Reported Clonazepam 1 Mg Tablet 1 Mg PO PRN DAILY PRN 09/19/21 Reported Cetirizine Hcl 10 Mg Tablet 10 Mg PO DAILY 09/19/21 Reported Atorvastatin Calcium 40 Mg Tablet 40 Mg PO HS 09/19/21 Reported Atenolol 50 Mg Tablet 50 Mg PO DAILY 09/19/21 Reported Abilify (Aripiprazole) 30 Mg Tablet 30 Mg PO DAILY 09/19/21 Reported Vascepa (Icosapent Ethyl) 1 Gm Capsule 2 Gm PO BID 12/20/21 Reported Triamterene-Hctz 37.5-25 Mg Cp (Triamterene/Hydrochlorothiazid) 1 Each Capsule 1 Cap PO DAILY 09/19/21 Reported Quetiapine Fumarate 400 Mg Tablet 800 Mg PO HS 09/19/21 Reported Pepcid (Famotidine) 20 Mg Tablet 20 Mg PO BID 03/06/21 Rx Ondansetron Odt (Ondansetron) 4 Mg Tab.rapdis 1 Tab PO PRN Q6-8HRS PRN 03/06/21 Rx Impression . 1. Acute hypoxic respiratory failure, likely secondary acute lung injury post COVID vaccine booster. May also have component of acute diastolic congestive heart failure. 2. Fever, present on admission, likely secondary to COVID vaccine booster. Cannot exclude right upper lobe pneumonia. 3. Abnormal CT chest with bilateral interstitial markings and basal pleural effusion. There is mild interstitial infiltrate in the right upper lobe, which could be all part of congestive heart failure. 4. History of tobaccoism. Plan . 1. Discussed with RN and . Finish the course of oral Augmentin. Patient would benefit from steroids. Patient's infiltrates likely acute lung injury post COVID vaccine booster. 2. Diuresis. 3. Wean FiO2, keep saturation 92% and above. 4. Follow-up chest x-ray today with unchanged bilateral interstitial infiltrate s. 5. Once oxygen requirement improves, he could be discharged. 6. Discussed with RN. CORY SANDERSON MD Sep 26, 2021 09:36
[2021-09-26] MEDS: ENOXAPARIN 40 MG/0.4 ML SYRINGE. SQ SCH (09:40)
--- NOTE | 2021-09-26 10:51 | PDOC2 ---
[facility] 09/26/21 1051: CARDIAC CONSULT DATE OF CONSULT Date of Consult DATE: 09/26/21 TIME: 10:38 REASON FOR CONSULT Reason for Consult: CHF REFERRING PHYSICIAN Referring Physician: Dr. Mccord SOURCE Source: Chart review, Patient HISTORY OF PRESENT ILLNESS HISTORY OF PRESENT ILLNESS This is a yo male who presented secondary to fatigue/weakness, chills/fevers, body aches, and back pain. Patient reports symptoms developed following receiving his COVID vaccine booster recently. Patient developed acute respiratory failure. Thought to have CHF component, which prompted this consult. Patient reports he has been urinating frequently and SOA has improved. He denies any chest pain or dizziness. PAST MEDICAL HISTORY Cardiovascular: HTN, Hyperlipidemia Psych: Bipolar, Schizophrenia Musculoskeletal: Osteoarthritis Endocrine: Diabetes PAST SURGICAL HISTORY Past Surgical History: No pertinent history FAMILY HISTORY Family History: Family History Unknown SOCIAL HISTORY Smoke: Quit ALCOHOL: none Drugs: None Lives: with Family CURRENT MEDICATIONS CURRENT MEDICATIONS Current Medications Medications (Trade) Dose Ordered Sig/George Route PRN Reason Start Time Stop Time Status Last Admin Dose Admin Furosemide (Lasix) 40 mg 1X ONCE IVP 09/25/21 12:00 09/25/21 12:01 DC 09/25/21 12:53 Dexamethasone (Decadron) 10 mg 1X ONCE PO 09/26/21 09:30 09/26/21 09:31 DC 09/26/21 09:39 ALLERGIES ALLERGIES: Coded Allergies: No Known Drug Allergies (Unverified , 03/06/21) ROS Review of System 14 point ROS conducted with pertinent positives noted above in HPI PHYSICAL EXAM General: Alert, Oriented X3, Cooperative, No acute distress HEENT: Atraumatic, Mucous membr. moist/pink Lungs: Other (diminished bases) Heart: Regular rate Abdomen: Soft Extremities: Other (trace bilateral LE edema ) Skin: No significant lesion Neuro: Sensation intact Psych/Mental Status: Mood NL MUSCULOSKELETAL: Osteoarthritic changes both hands VITALS/I&O VITALS/I&O: Vital Signs Date Time Temp Pulse Resp B/P (MAP) Pulse Ox O2 Delivery O2 Flow Rate FiO2 09/26/21 09:35 Nasal Cannula 3.0 09/26/21 09:35 89 128/77 09/26/21 07:00 97.9 20 94 97.9 I & O 09/25/21 09/25/21 09/26/21 15:00 23:00 07:00 Intake Total 400 ml Output Total 960 ml 980 ml 750 ml Balance -560 ml -980 ml -750 ml LABS Lab: Laboratory Tests Test 09/25/21 11:36 09/25/21 19:40 09/26/21 07:14 09/26/21 07:20 Glucose (Fingerstick) 241 mg/dL (70-99) H 274 mg/dL (70-99) H 122 mg/dL (70-99) H Sodium Level 139 mmol/L (136-145) Potassium Level 4.0 mmol/L (3.5-5.1) Chloride Level 103 mmol/L (98-107) Carbon Dioxide Level 28 mmol/L (21-32) Anion Gap 8 (6-14) Blood Urea Nitrogen 18 mg/dL (8-26) Creatinine 0.6 mg/dL (0.7-1.3) L Estimated GFR (Cockcroft-Gault) 137.4 Glucose Level 104 mg/dL (70-99) H Calcium Level 9.2 mg/dL (8.5-10.1) Laboratory Tests 09/26/21 07:20 ASSESSMENT/PLAN ASSESSMENT/PLAN 1. Acute respiratory failure secondary to PNA, CHF 2. Acute on chronic probable diastolic CHF; s/p IV Lasix 3. S/p recent COVID vaccine booster 4. Fevers, myalgias 5. Hypertension; controlled 6. Hyperlipidemia; statin 7. Diabetes, II 8. Schizophrenia Recommendations Ongoing lung optimization Will give additional dose of IV Lasix Monitor I and O Outpatient echo to assess LV systolic function Consider outpatient ischemic evaluation given risk factors Supportive care GRADY CASTILLO MD 09/27/21 0725: CARDIAC CONSULT ASSESSMENT/PLAN ASSESSMENT/PLAN Pt. seen and examined. Agree with above PRECISION ASSEMBLER BENCH note. Late entry for 09/26/21 CLAY ORTEGA APRN Sep 26, 2021 10:51 GRADY CASTILLO MD Sep 27, 2021 07:25
[2021-09-26 11:00] VITALS: BP 144/80
--- NOTE | 2021-09-26 14:02 | RAD ---
EXAM: CHEST ONE VIEW. HISTORY: Congestive heart failure. COMPARISON: 09/19/2021. FINDINGS: A frontal view of the chest is obtained. Bibasilar interstitial and airspace infiltrates have increased since the prior study There is no pneu mothorax or pleural effusion. The heart is moderately enlarged. There are atherosclerotic calcificati ons of the aorta. The right hemidiaphragm is mildly elevated. IMPRESSION: 1. Increased right greater than left basilar interstitial and airspace infiltrates. 2. Moderate cardiomegaly. Electronically signed by: Shree Doss MD (09/26/2021 2:00 PM) [id number]
[2021-09-26 15:00] VITALS: BP 146/71
--- NOTE | 2021-09-26 15:51 | NUR ---
SW following. Discussed with RN, pt did really well with therapy today. SE[facility] spoke with family, they are fine with taking pt home if he can manage stairs. Hopefully PT can do stairs tomorrow to determine if pt can go home. SEYMOUR will continue to follow.
[2021-09-26] MEDS ORDERED: FUROSEMIDE 40 MG/4 ML VIAL. IVP ONE (17:00)
[2021-09-26 19:00] VITALS: BP 136/72
[2021-09-26] MEDS: PATCH REMOVAL. MC SCH (21:00)
[2021-09-26] MEDS: DIVALPROEX EXTENDED RELEASE 500 MG TAB.ER.24H. PO SCH (22:43)
[2021-09-26] MEDS: QUEtiapine 100 MG TABLET. PO SCH (22:44)
[2021-09-26] MEDS: ATORVASTATIN CALCIUM 40 MG TABLET. PO SCH (22:44)
[2021-09-26 23:39] VITALS: BP 126/71
[2021-09-26] MEDS: INSULIN GLARGINE SYRINGE. SQ SCH (23:39)
[2021-09-27 03:36] VITALS: BP 132/74
[2021-09-27 03:56] LABS: CHOLESTEROL/HDL RATIO 5.2
[2021-09-27] MEDS: POLYETHYLENE GLYCOL 3350 17 GM PACKET. PO PRN ×2 (05:39→10:15)
[2021-09-27 07:00] VITALS: BP 116/74
[2021-09-27] MEDS ORDERED: DEXAMETHASONE 4 MG TABLET PO SCH (08:00)
--- NOTE | 2021-09-27 08:15 | PDOC ---
PULMONARY PROGRESS NOTES DATE: 09/27/21 TIME: 08:15 Subjective Patient not more short of breath Vitals Vital Signs Date Time Temp Pulse Resp B/P (MAP) Pulse Ox O2 Delivery O2 Flow Rate FiO2 09/27/21 03:36 97.7 91 18 132/74 (93) 92 Nasal Cannula 3.0 97.7 ROS: No Nausea, No Chest Pain, No Abdominal Pain, No Increase Cough General: Alert, No acute distress Lungs: Clear Cardiovascular: S1 Abdomen: Soft, Other (Obese) Neuro Exam: Alert Extremities: No Edema Skin: Warm Labs Laboratory Tests Test 09/25/21 11:36 09/25/21 19:40 09/26/21 07:14 09/26/21 07:20 Glucose (Fingerstick) 241 mg/dL (70-99) 274 mg/dL (70-99) 122 mg/dL (70-99) Sodium Level 139 mmol/L (136-145) Potassium Level 4.0 mmol/L (3.5-5.1) Chloride Level 103 mmol/L (98-107) Carbon Dioxide Level 28 mmol/L (21-32) Anion Gap 8 (6-14) Blood Urea Nitrogen 18 mg/dL (8-26) Creatinine 0.6 mg/dL (0.7-1.3) Estimated GFR (Cockcroft-Gault) 137.4 Glucose Level 104 mg/dL (70-99) Calcium Level 9.2 mg/dL (8.5-10.1) Triglycerides Level 167 mg/dL (0-150) Cholesterol Level 167 mg/dL (0-200) LDL Cholesterol, Calculated 102 mg/dL (0-100) VLDL Cholesterol, Calculated 33 mg/dL (0-40) Non-HDL Cholesterol Calculated 135 mg/dL (0-129) HDL Cholesterol 32 mg/dL (40-60) Cholesterol/HDL Ratio 5.2 Test 09/26/21 11:36 09/26/21 16:53 09/26/21 19:13 Glucose (Fingerstick) 259 mg/dL (70-99) 285 mg/dL (70-99) 267 mg/dL (70-99) Laboratory Tests Test 09/26/21 11:36 09/26/21 16:53 09/26/21 19:13 Glucose (Fingerstick) 259 mg/dL (70-99) 285 mg/dL (70-99) 267 mg/dL (70-99) Medications Active Scripts Medications Dose Route/Sig Max Daily Dose Days Date Category Tresiba (Insulin Degludec) 100 Unit/1 Ml Vial 35 Unit SQ QHS 09/19/21 Reported Trulicity (Dulaglutide) 0.75 Mg/0.5 Ml Pen.injctr 0.5 Mg SQ WEEKLY 09/19/21 Reported Metformin Hcl 1,000 Mg Tablet 1,000 Mg PO BIDWMEALS 09/19/21 Reported Aspirin 81 Mg Tab.chew 81 Mg PO DAILY 09/19/21 Reported Lisinopril 40 Mg Tablet 40 Mg PO DAILY 09/19/21 Reported Januvia (Sitagliptin Phosphate) 100 Mg Tablet 100 Mg PO DAILY 09/19/21 Reported Glimepiride 4 Mg Tablet 4 Mg PO BID 09/19/21 Reported Fenofibrate (Fenofibrate Nanocrystallized) 145 Mg Tablet 145 Mg PO DAILY 09/19/21 Reported Farxiga (Dapagliflozin Propanediol) 10 Mg Tablet 10 Mg PO DAILY 09/19/21 Reported Depakote Er (Divalproex Sodium) 500 Mg Tab.er.24h 2,000 Mg PO QHS 09/19/21 Reported Clonazepam 1 Mg Tablet 1 Mg PO PRN DAILY PRN 09/19/21 Reported Cetirizine Hcl 10 Mg Tablet 10 Mg PO DAILY 09/19/21 Reported Atorvastatin Calcium 40 Mg Tablet 40 Mg PO HS 09/19/21 Reported Atenolol 50 Mg Tablet 50 Mg PO DAILY 09/19/21 Reported Abilify (Aripiprazole) 30 Mg Tablet 30 Mg PO DAILY 09/19/21 Reported Vascepa (Icosapent Ethyl) 1 Gm Capsule 2 Gm PO BID 09/19/21 Reported Triamterene-Hctz 37.5-25 Mg Cp (Triamterene/Hydrochlorothiazid) 1 Each Capsule 1 Cap PO DAILY 09/19/21 Reported Quetiapine Fumarate 400 Mg Tablet 800 Mg PO HS 09/19/21 Reported Pepcid (Famotidine) 20 Mg Tablet 20 Mg PO BID 03/06/21 Rx Ondansetron Odt (Ondansetron) 4 Mg Tab.rapdis 1 Tab PO PRN Q6-8HRS PRN 03/06/21 Rx Impression . 1. Acute hypoxic respiratory failure, likely secondary acute lung injury post COVID vaccine booster. May also have component of acute diastolic congestive heart failure. 2. Fever 3. Abnormal CT chest 4. History of tobaccoism. Plan . Updated 09/27 Okay to discharge on oral Augmentin 10 days of steroids 6-minute walk 09/26 1. Discussed with RN and . Finish the course of oral Augmentin. Patient would benefit from steroids. Patient's infiltrates likely acute lung injury post COVID vaccine booster. 2. Diuresis. 3. Wean FiO2, keep saturation 92% and above. 4. Follow-up chest x-ray today with unchanged bilateral interstitial infiltrates. 5. Once oxygen requirement improves, he could be discharged. 6. Discussed with RN. SKYLAR KNOTT MD Sep 27, 2021 08:15
--- NOTE | 2021-09-27 08:53 | PDOC ---
Infectious Disease Note Subjective: Subjective Patient alert awake, complains of back pain, denies cough or chest pain fever, nausea, vomiting On 4 L O2 by nasal cannula Vital Signs: Vital Signs Vital Signs Date Time Temp Pulse Resp B/P (MAP) Pulse Ox O2 Delivery O2 Flow Rate FiO2 09/27/21 03:36 97.7 91 18 132/74 (93) 92 Nasal Cannula 3.0 97.7 Physical Exam: PHYSICAL EXAM GENERAL: Sleepy but arousable male on nasal O2 HEENT: Normocephalic, atraumatic. Anicteric. Bilateral hearing aids. No sinus tenderness. Oral mucosa dry NECK: Supple, no JVD, no lymphadenopathy. LUNGS: Clear bilaterally. No wheezing. HEART: S1, S2. No murmurs. ABDOMEN: Soft, distended, mild tenderness present diffusely, no rebound or guarding. EXTREMITIES: No edema, no cyanosis. Hyperpigmentation both lower extremities DERMATOLOGIC: Warm, dry, no generalized rash. Chronic venous stasis, dermatitis present over both the lower extremities. NEUROLOGIC: Sleepy but arousable moves all 4 extremities Medications: Inpatient Meds: Medications reviewed. Labs: Lab Laboratory Tests Test 09/26/21 11:36 09/26/21 16:53 09/26/21 19:13 09/27/21 08:19 Glucose (Fingerstick) 259 mg/dL (70-99) 285 mg/dL (70-99) 267 mg/dL (70-99) 240 mg/dL (70-99) Micro Blood culture GPC pending CT head noted CT abdomen reviewed IMPRESSION: 1. Moderate to large amount of colonic stool. Correlate for constipation. 2. Hepatomegaly and hepatic steatosis. 3. Small hypodense lesions within the liver. These are too small to characterize. In the absence of known malignancy, these are likely cysts or hemangiomas. Liver protocol MRI can be performed to confirm benignity if there is clinical concern. 4. Prominent right renal collecting system likely due to a distended urinary bladder. No obstructing lesion is seen. 5. Simple right renal cyst. Follow-up is not routinely performed for simple cysts. Objective: Assessment: 1. Fever resolved 2. CT showing partial opacification of the left posterior mastoid air cells with partial erosion of the bony margins suggesting underlying mass lesion or possible vascular malformation. No previous CT for comparison. Mild headache letter will be viral 3. Status post COVID booster vaccine with the above symptoms. 4. Gram-positive cocci bacteremia in 1 out of 2 bottles present on admission Strep mutans, could be a contaminant. Follow-up blood cultures negative 5. Diabetes mellitus. 6. Generalized myalgia and achiness. 7. Schizophrenia.Bipolar. 8. Hyperlipidemia. 9. Chronic back pain. 10. Abdominal discomfort, constipation Possible aspiration pneumonia Plan: Plan of Care Continue Augmentin was on Zosyn Maintain aspiration precautions PT and OT as tolerated Monitor labs and cultures Continue supportive care Discussed with CARRINGTON ANDINO MD Sep 27, 2021 08:53
--- NOTE | 2021-09-27 09:09 | PDOC ---
PROGRESS NOTES Date of Service DATE: 09/27/21 TIME: 09:07 Subjective Subjective He feels better. Objective Objective Vital Signs Date Time Temp Pulse Resp B/P (MAP) Pulse Ox O2 Delivery O2 Flow Rate FiO2 09/27/21 03:36 97.7 91 18 132/74 (93) 92 Nasal Cannula 3.0 97.7 Intake and Output 09/27/21 07:00 Output Total 1775 ml Balance -1775 ml Output Urine Total 1775 ml Physical Exam Physical Exam He is alert,sitting at edge of bed and eating breakfast and he did walk for 80' with physical therapy using roller walker, without any buckling of his knees. Assessment Assessment Problems Medical Problems: (1) Abnormal head CT Status: Acute (2) Diabetes mellitus Status: Acute (3) Fever Status: Acute (4) Generalized weakness Status: Acute Plan Plan of Care Family plans to take him home if he can manage stairs. Comment Review of Relevant I have reviewed the following items jayleen (where applicable) has been applied. Labs Laboratory Tests Test 09/25/21 11:36 09/25/21 19:40 09/26/21 07:14 09/26/21 07:20 Glucose (Fingerstick) 241 mg/dL (70-99) 274 mg/dL (70-99) 122 mg/dL (70-99) Sodium Level 139 mmol/L (136-145) Potassium Level 4.0 mmol/L (3.5-5.1) Chloride Level 103 mmol/L (98-107) Carbon Dioxide Level 28 mmol/L (21-32) Anion Gap 8 (6-14) Blood Urea Nitrogen 18 mg/dL (8-26) Creatinine 0.6 mg/dL (0.7-1.3) Estimated GFR (Cockcroft-Gault) 137.4 Glucose Level 104 mg/dL (70-99) Calcium Level 9.2 mg/dL (8.5-10.1) Triglycerides Level 167 mg/dL (0-150) Cholesterol Level 167 mg/dL (0-200) LDL Cholesterol, Calculated 102 mg/dL (0-100) VLDL Cholesterol, Calculated 33 mg/dL (0-40) Non-HDL Cholesterol Calculated 135 mg/dL (0-129) HDL Cholesterol 32 mg/dL (40-60) Cholesterol/HDL Ratio 5.2 Test 09/26/21 11:36 09/26/21 16:53 09/26/21 19:13 09/27/21 08:19 Glucose (Fingerstick) 259 mg/dL (70-99) 285 mg/dL (70-99) 267 mg/dL (70-99) 240 mg/dL (70-99) Laboratory Tests Test 09/26/21 11:36 09/26/21 16:53 09/26/21 19:13 09/27/21 08:19 Glucose (Fingerstick) 259 mg/dL (70-99) 285 mg/dL (70-99) 267 mg/dL (70-99) 240 mg/dL (70-99) Microbiology 09/24/21 Gram Stain Evaluation - Final, Resulted 09/24/21 Respiratory Culture - Preliminary, Resulted 09/21/21 Blood Culture - Final, Complete NO GROWTH AFTER 5 DAYS 09/19/21 Urine Culture - Final, Complete Medications Current Medications Acetaminophen (Tylenol) 1,000 mg 1X ONCE PO Last administered on 09/19/21at 10:02; Start 09/19/21 at 10:00; Stop 09/19/21 at 10:01; Status DC Sodium Chloride 1,000 ml @ 1,000 mls/hr 1X ONCE IV Last administered on 09/19/21at 10:02; Start 09/19/21 at 10:00; Stop 09/19/21 at 10:59; Status DC Fentanyl Citrate (Fentanyl 2ml Vial) 50 mcg 1X ONCE IVP Last administered on 09/19/21at 11:44; Start 09/19/21 at 11:00; Stop 09/19/21 at 11:01; Status DC Ibuprofen (Motrin) 800 mg 1X ONCE PO Last administered on 09/19/21at 15:25; Start 09/19/21 at 15:15; Stop 09/19/21 at 15:16; Status DC Ondansetron HCl (Zofran) 4 mg PRN Q8HRS PRN IVP NAUSEA/VOMITING; Start 09/19/21 at 15:15; Stop 09/20/21 at 15:14; Status DC Sodium Chloride 1,000 ml @ 75 mls/hr 1X ONCE IV Last administered on 09/19/21at 15:28; Start 09/19/21 at 15:15; Stop 09/20/21 at 04:34; Status DC Acetaminophen (Tylenol) 650 mg PRN Q4HRS PRN PO MILD PAIN / TEMP > 100.3'F Last administered on 09/23/21 15:22; Start 09/19/21 at 15:15 Famotidine (Pepcid) 20 mg BID PO Last administered on 09/26/21 22:44; Start 09/19/21 at 21:00 Insulin Human Lispro (HumaLOG) 0-5 UNITS TIDWMEALS SQ Last administered on 09/26/21 17:57; Start 09/19/21 at 17:00 Dextrose (Dextrose 50%-Water Syringe) 12.5 gm PRN Q15MIN PRN IV SEE COMMENTS Last administered on 09/23/21 08:27; Start 09/19/21 at 17:00 Aspirin (Aspirin Chewable) 81 mg DAILY PO Last administered on 09/26/21 09:34; Start 09/20/21 at 09:00 Atenolol (Tenormin) 50 mg DAILY PO Last administered on 09/26/21 09:34; Start 09/20/21 at 09:00 Atorvastatin Calcium (Lipitor) 40 mg HS PO Last administered on 09/26/21 22:44; Start 09/20/21 at 21:00 Cetirizine HCl (ZyrTEC) 10 mg DAILY PO Last administered on 09/26/21 09:34; Start 09/20/21 at 09:00 Divalproex Sodium (Depakote Er) 2,000 mg QHS PO Last administered on 09/26/21 22:43; Start 09/20/21 at 21:00 Lisinopril (Prinivil) 40 mg DAILY PO Last administered on 09/26/21 09:35; Start 09/20/21 at 09:00 Ondansetron HCl (Zofran Odt) 4 mg PRN Q6HRS PRN PO NAUSEA 1ST CHOICE; Start 09/20/21 at 06:30 Aripiprazole (Abilify) 30 mg DAILY PO Last administered on 09/26/21 09:33; Start 09/20/21 at 09:00 Clonazepam (KlonoPIN) 1 mg PRN DAILY PRN PO ANXIETY / AGITATION Last administered on 09/24/21 20:55; Start 09/20/21 at 06:45 Non-Formulary Medication (Dapagliflozin Propanediol (Farxiga)) 10 mg DAILY PO ; Start 09/20/21 at 09:00; Stop 09/22/21 at 07:08; Status DC Non-Formulary Medication (Dulaglutide (Trulicity)) 0.5 mg WEEKLY SQ ; Start at 09:00; Stop 09/22/21 at 07:08; Status DC Fenofibrate (Lofibra) 134 mg DAILY PO Last administered on 09/26/21at 09:33; Start 09/20/21 at 09:00 Glimepiride (Amaryl) 4 mg BID PO Last administered on 09/22/21at 22:24; Start 09/20/21 at 09:00; Stop 09/23/21 at 10:59; Status DC Non-Formulary Medication (Icosapent Ethyl (Vascepa)) 2 gm BID PO ; Start 09/20/21 at 09:00; Stop 09/22/21 at 07:08; Status DC Insulin Glargine (Lantus Syringe) 35 unit QHS SQ Last administered on 09/22/21at 22:30; Start 09/20/21 at 21:00; Stop 09/23/21 at 10:59; Status DC Metformin HCl (Glucophage) 1,000 mg BIDWMEALS PO Last administered on 09/20/21at 08:46; Start 09/20/21 at 08:00; Stop 09/20/21 at 09:37; Status DC Quetiapine Fumarate (SEROquel) 800 mg HS PO Last administered on 09/26/21at 22:44; Start 09/20/21 at 21:00 Linagliptin (Tradjenta) 5 mg DAILY PO Last administered on 09/26/21at 09:34; Start 09/20/21 at 09:00 Triamterene/HCTZ (Maxzide 37.5/ 25mg) 1 tab DAILY PO Last administered on 09/20/21at 08:45; Start 09/20/21 at 09:00; Stop 09/20/21 at 09:37; Status DC Sodium Chloride 1,000 ml @ 50 mls/hr Q20H IV Last administered on 09/21/21at 13:36; Start 09/20/21 at 09:30; Stop 09/21/21 at 16:00; Status DC Iohexol (Omnipaque 240 Mg/ml) 50 ml 1X ONCE PO Last administered on 09/20/21at 09:45; Start 09/20/21 at 09:45; Stop 09/20/21 at 09:46; Status DC Iohexol (Omnipaque 300 Mg/ml) 75 ml 1X ONCE IV Last administered on 09/20/21at 09:45; Start 09/20/21 at 09:45; Stop 09/20/21 at 09:46; Status DC Piperacillin Sod/ Tazobactam Sod 3.375 gm/Sodium Chloride 50 ml @ 100 mls/hr Q6HRS IV Last administered on 09/24/21at 06:12; Start 09/20/21 at 12:00; Stop 09/24/21 at 07:54; Status DC Lactobacillus Rhamnosus (Culturelle) 1 cap BID PO Last administered on 09/26/21at 22:44; Start 09/20/21 at 21:00 Daptomycin 570 mg/ Sodium Chloride 50 ml @ 100 mls/hr Q24H IV Last administere d on 09/21/21at 22:07; Start 09/20/21 at 20:00; Stop 09/22/21 at 18:09; Status DC Enoxaparin Sodium (Lovenox 40mg Syringe) 40 mg Q24H SQ Last administered on 09/26/21at 09:40; Start 09/21/21 at 09:00 Tramadol HCl (Ultram) 50 mg PRN Q6HRS PRN PO MODERATE PAIN Last administered on 09/26/21at 09:35; Start 09/22/21 at 09:15 Lidocaine (Lidoderm) 1 patch DAILY TD Last administered on 09/26/21at 09:35; Start 09/22/21 at 11:00 Miscellaneous (Lidoderm Patch Removal) 1 ea QHS MC Last administered on 1at 21:00; Start 09/22/21 at 21:00 Methylprednisolone Acetate (DEPO-Medrol 40MG VIAL) 40 mg 1X ONCE IM ; Start 09/22/21 at 11:00; Stop 09/22/21 at 11:01; Status DC Methylprednisolone Acetate (DEPO-Medrol 40MG VIAL) 40 mg 1X ONCE INJ ; Start 09/22/21 at 11:00; Stop 09/22/21 at 11:01; Status DC Bupivacaine HCl (Sensorcaine-Mpf 0.25%) 10 ml 1X ONCE IJ ; Start 09/22/21 at 11:00; Stop 09/22/21 at 11:01; Status DC Insulin Glargine (Lantus Syringe) 20 unit QHS SQ Last administered on 09/26/21at 23:39; Start 09/23/21 at 21:00 Polyethylene Glycol (miraLAX PACKET) 17 gm PRN DAILY PRN PO CONSTIPATION Last administered on 09/27/21at 05:39; Start 09/23/21 at 16:00 Amoxicillin/ Clavulanate Potassium (Augmentin 875/ 125mg) 1 tab BID PO Last administered on 09/26/21at 22:43; Start 09/24/21 at 09:00 Furosemide (Lasix) 40 mg 1X ONCE IVP Last administered on 09/25/21at 12:53; Start 09/25/21 at 12:00; Stop 09/25/21 at 12:01; Status DC Dexamethasone (Decadron) 4 mg DAILYWBKFT PO ; Start 09/27/21 at 08:00 Dexamethasone (Decadron) 10 mg 1X ONCE PO Last administered on 09/26/21at 09:39; Start 09/26/21 at 09:30; Stop 09/26/21 at 09:31; Status DC Furosemide (Lasix) 40 mg 1X ONCE IVP Last administered on 09/26/21at 17:58; Start 09/26/21 at 17:00; Stop 09/26/21 at 17:01; Status DC Active Scripts Active Pepcid (Famotidine) 20 Mg Tablet 20 Mg PO BID Ondansetron Odt (Ondansetron) 4 Mg Tab.rapdis 1 Tab PO PRN Q6-8HRS PRN Reported Tresiba (Insulin Degludec) 100 Unit/1 Ml Vial 35 Unit SQ QHS Trulicity (Dulaglutide) 0.75 Mg/0.5 Ml Pen.injctr 0.5 Mg SQ WEEKLY Metformin Hcl 1,000 Mg Tablet 1,000 Mg PO BIDWMEALS Aspirin 81 Mg Tab.chew 81 Mg PO DAILY Lisinopril 40 Mg Tablet 40 Mg PO DAILY Januvia (Sitagliptin Phosphate) 100 Mg Tablet 100 Mg PO DAILY Glimepiride 4 Mg Tablet 4 Mg PO BID Fenofibrate (Fenofibrate Nanocrystallized) 145 Mg Tablet 145 Mg PO DAILY Farxiga (Dapagliflozin Propanediol) 10 Mg Tablet 10 Mg PO DAILY Depakote Er (Divalproex Sodium) 500 Mg Tab.er.24h 2,000 Mg PO QHS Clonazepam 1 Mg Tablet 1 Mg PO PRN DAILY PRN Cetirizine Hcl 10 Mg Tablet 10 Mg PO DAILY Atorvastatin Calcium 40 Mg Tablet 40 Mg PO HS Atenolol 50 Mg Tablet 50 Mg PO DAILY Abilify (Aripiprazole) 30 Mg Tablet 30 Mg PO DAILY Vascepa (Icosapent Ethyl) 1 Gm Capsule 2 Gm PO BID Triamterene-Hctz 37.5-25 Mg Cp (Triamterene/Hydrochlorothiazid) 1 Each Capsule 1 Cap PO DAILY Quetiapine Fumarate 400 Mg Tablet 800 Mg PO HS Vitals/I & O Vital Sign - Last 24 Hours 09/26/21 09/26/21 09/26/21 09/26/21 09:34 09:35 09:35 10:05 Pulse 89 89 B/P (MAP) 128/77 128/77 O2 Delivery Nasal Cannula Nasal Cannula O2 Flow Rate 3.0 09/26/21 09/26/21 09/26/21 09/26/21 11:00 15:00 19:00 20:00 Temp 98.2 97.6 98.7 98.2 97.6 98.7 Pulse 85 81 105 Resp 20 20 18 B/P (MAP) 144/80 (101) 146/71 (96) 136/72 (93) Pulse Ox 97 94 94 O2 Delivery Nasal Cannula Nasal Cannula Nasal Cannula Nasal Cannula O2 Flow Rate 3.0 3.0 3.0 3.0 09/26/21 09/27/21 23:39 03:36 Temp 97.8 97.7 97.8 97.7 Pulse 100 91 Resp 18 18 B/P (MAP) 126/71 (89) 132/74 (93) Pulse Ox 93 92 O2 Delivery Nasal Cannula Nasal Cannula O2 Flow Rate 3.0 3.0 Intake and Output 09/26/21 09/26/21 09/27/21 15:00 23:00 07:00 Output Total 675 ml 500 ml 600 ml Balance -675 ml -500 ml -600 ml Justifications for Admission Other Justification KRYSTAL CARRANZA MD Sep 27, 2021 09:09
--- NOTE | 2021-09-27 09:39 | PDOC ---
PROGRESS NOTES Date of Service: DATE: 09/27/21 TIME: 09:37 Subjective Subjective feels ok Objective Objective Vital Signs Date Time Temp Pulse Resp B/P (MAP) Pulse Ox O2 Delivery O2 Flow Rate FiO2 09/27/21 03:36 97.7 91 18 132/74 (93) 92 Nasal Cannula 3.0 97.7 Intake and Output 09/27/21 07:00 Output Total 1775 ml Balance -1775 ml Output Urine Total 1775 ml Physical Exam Abdomen: Soft Heart: Regular rate Extremities: Other (trace bilateral LE edema ) General: Alert, Oriented X3, Cooperative, No acute distress HEENT: Atraumatic, Mucous membr. moist/pink Lungs: Other (diminished bases) MUSCULOSKELETAL: Osteoarthritic changes both hands Neck: Supple Neuro: Sensation intact Psych/Mental Status: Mood NL Skin: No significant lesion Diagnosis Problem List Problems Medical Problems: (1) Abnormal head CT Status: Acute (2) Diabetes mellitus Status: Acute (3) Fever Status: Acute (4) Generalized weakness Status: Acute Assessment Assessment Problems Medical Problems: (1) Abnormal head CT Status: Acute (2) Diabetes mellitus Status: Acute (3) Fever Status: Acute (4) Generalized weakness Status: Acute FINAL IMPRESSION: 1. Fever. 2. Body aches. 3. Diabetes. 4. Obesity. 5. Hypertension. 6. Schizophrenia. PLAN:SNU screen,pts sister SOLE also thinks he needs to go to SNU started on dexamethasone. spoke with pulmonary iv lasix for chf echo today cardiology consult appreciate pulmonary consult. PT/OT Rehab consult Plan Plan of Care Problems Medical Problems: (1) Abnormal head CT Status: Acute (2) Diabetes mellitus Status: Acute (3) Fever Status: Acute (4) Generalized weakness Status: Acute Comment Review of Relevant I have reviewed the following items jayleen (where applicable) has been applied. Labs Laboratory Tests Test 09/26/21 11:36 09/26/21 16:53 09/26/21 19:13 09/27/21 08:19 Glucose (Fingerstick) 259 mg/dL (70-99) 285 mg/dL (70-99) 267 mg/dL (70-99) 240 mg/dL (70-99) Microbiology 09/24/21 Gram Stain Evaluation - Final, Complete 09/24/21 Respiratory Culture - Final, Complete 09/21/21 Blood Culture - Final, Complete NO GROWTH AFTER 5 DAYS 09/19/21 Urine Culture - Final, Complete Medications Current Medications Dexamethasone (Decadron) 4 mg DAILYWBKFT PO ; Start 09/27/21 at 08:00 Furosemide (Lasix) 40 mg 1X ONCE IVP Last administered on 09/26/21at 17:58; Start 09/26/21 at 17:00; Stop 09/26/21 at 17:01; Status DC Vitals/I & O Vital Sign - Last 24 Hours 09/26/21 09/26/21 09/26/21 09/26/21 10:05 11:00 15:00 19:00 Temp 98.2 97.6 98.7 98.2 97.6 98.7 Pulse 85 81 105 Resp 20 20 18 B/P (MAP) 144/80 (101) 146/71 (96) 136/72 (93) Pulse Ox 97 94 94 O2 Delivery Nasal Cannula Nasal Cannula Nasal Cannula Nasal Cannula O2 Flow Rate 3.0 3.0 3.0 09/26/21 09/26/21 09/27/21 20:00 23:39 03:36 Temp 97.8 97.7 97.8 97.7 Pulse 100 91 Resp 18 18 B/P (MAP) 126/71 (89) 132/74 (93) Pulse Ox 93 92 O2 Delivery Nasal Cannula Nasal Cannula Nasal Cannula O2 Flow Rate 3.0 3.0 3.0 Intake and Output 09/26/21 09/26/21 09/27/21 15:00 23:00 07:00 Output Total 675 ml 500 ml 600 ml Balance -675 ml -500 ml -600 ml Justifications for Admission Other Justification JASMIN CHO MD Sep 27, 2021 09:39
[2021-09-27] MEDS ORDERED: DEXA4TAB63 PO (09:42)
[2021-09-27] MEDS ORDERED: LIDO700A21 TD (09:42)
--- NOTE | 2021-09-27 09:43 | SNU/HH DC ---
DISCHARGE ORDERS DISCHARGE INFORMATION: DISCHARGE DATE: Sep 27, 2021 FINAL DIAGNOSIS Problems Medical Problems: (1) Abnormal head CT Status: Acute (2) Diabetes mellitus Status: Acute (3) Fever Status: Acute (4) Generalized weakness Status: Acute CONDITION ON DISCHARGE: Stable CODE STATUS: Code Status: Full RETIREMENT: SNF STAY <30 DAYS: Yes HOSPICE: HOSPICE: No HOSPICE EVAL & TREAT: No LTAC: ADMIT TO LTAC: No POST DISCHARGE ORDERS: ACTIVITY ORDERS: Activity as tolerated CHECKS AFTER DISCHARGE: CHECKS AFTER DISCHARGE: Check blood press - daily, Check blood sugar, ac/hs TREATMENT/EQUIPMENT ORDERS: RESPIRATORY EQUIPMENT NEEDED: Oxygen Physical Therapy For: Evalulation/Treatment Occupational Therapy For: Evaluation/Treatment DISCHARGE MEDICATIONS: Home Meds Active Scripts Lidocaine (Lidocaine PATCH ) 1 Each Adh..patch, 1 PATCH TD DAILY for pain for 30 Days, #30 PATCH Prov:JASMIN CHO MD 09/27/21 Dexamethasone (Decadron) 4 Mg Tablet, 4 MG PO DAILYWBKFT for lungs for 5 Days, #5 TAB Prov:JASMIN CHO MD 09/27/21 Famotidine (PEPCID) 20 Mg Tablet, 20 MG PO BID, #14 TAB Prov:DEBRA SILVER DO 03/06/21 Ondansetron (ONDANSETRON ODT) 4 Mg Tab.rapdis, 1 TAB PO PRN Q6-8HRS PRN for NAUSEA, #16 TAB Prov:DEBRA SILVER DO 03/06/21 Reported Medications Insulin Degludec (Tresiba) 100 Unit/1 Ml Vial, 35 UNIT SQ QHS for DM, EACH 09/19/21 Dulaglutide (Trulicity) 0.75 Mg/0.5 Ml Pen.injctr, 0.5 MG SQ WEEKLY for DM, EACH 09/19/21 Metformin Hcl (METFORMIN HCL) 1,000 Mg Tablet, 1000 MG PO BIDWMEALS for DM, TAB 09/19/21 Aspirin (ASPIRIN) 81 Mg Tab.chew, 81 MG PO DAILY for PPX, TAB.CHEW 09/19/21 Lisinopril (LISINOPRIL) 40 Mg Tablet, 40 MG PO DAILY for FOR HYPERTENSION, #30 TAB 0 Refills 09/19/21 Sitagliptin Phosphate (JANUVIA) 100 Mg Tablet, 100 MG PO DAILY for DM, TAB 09/19/21 Glimepiride (GLIMEPIRIDE) 4 Mg Tablet, 4 MG PO BID for DM, TAB 09/19/21 Fenofibrate Nanocrystallized (FENOFIBRATE) 145 Mg Tablet, 145 MG PO DAILY for HLD, TAB 09/19/21 Dapagliflozin Propanediol (FARXIGA) 10 Mg Tablet, 10 MG PO DAILY for DM, TAB 09/19/21 Divalproex Sodium (DEPAKOTE ER) 500 Mg Tab.er.24h, 2000 MG PO QHS for bipolar, TAB.SR 09/19/21 Clonazepam (CLONAZEPAM) 1 Mg Tablet, 1 MG PO PRN DAILY PRN for ANXIETY / AGITATION, TAB 09/19/21 Cetirizine Hcl (CETIRIZINE HCL) 10 Mg Tablet, 10 MG PO DAILY for ALLERGIES, TAB 09/19/21 Atorvastatin Calcium (ATORVASTATIN CALCIUM) 40 Mg Tablet, 40 MG PO HS for FOR CHOLESTEROL, #30 TAB 0 Refills 09/19/21 Atenolol (ATENOLOL) 50 Mg Tablet, 50 MG PO DAILY for HTN, TAB 09/19/21 Aripiprazole (ABILIFY) 30 Mg Tablet, 30 MG PO DAILY for schizo/bipolar, TAB 09/19/21 Icosapent Ethyl (VASCEPA) 1 Gm Capsule, 2 GM PO BID for HLD, CAP 09/19/21 Triamterene/Hydrochlorothiazid (TRIAMTERENE-HCTZ 37.5-25 MG CP) 1 Each Capsule, 1 CAP PO DAILY for HTN, CAP 09/19/21 Quetiapine Fumarate (QUETIAPINE FUMARATE) 400 Mg Tablet, 800 MG PO HS for melissa izophrenia, TAB 09/19/21 JASMIN CHO MD Sep 27, 2021 09:43
--- NOTE | 2021-09-27 09:52 | PDOC ---
Infectious Disease Note Subjective: Subjective Patient alert awake, states feels better Vital Signs: Vital Signs Vital Signs Date Time Temp Pulse Resp B/P (MAP) Pulse Ox O2 Delivery O2 Flow Rate FiO2 09/27/21 07:00 97.6 86 18 116/74 (88) 92 Nasal Cannula 3.0 97.6 Physical Exam: PHYSICAL EXAM GENERAL: Sleepy but arousable male on nasal O2 HEENT: Normocephalic, atraumatic. Anicteric. Bilateral hearing aids. No sinus tenderness. Oral mucosa dry NECK: Supple, no JVD, no lymphadenopathy. LUNGS: Clear bilaterally. No wheezing. HEART: S1, S2. No murmurs. ABDOMEN: Soft, distended, mild tenderness present diffusely, no rebound or guarding. EXTREMITIES: No edema, no cyanosis. Hyperpigmentation both lower extremities DERMATOLOGIC: Warm, dry, no generalized rash. Chronic venous stasis, dermatitis present over both the lower extremities. NEUROLOGIC: Sleepy but arousable moves all 4 extremities Medications: Inpatient Meds: Medications reviewed. Labs: Lab Laboratory Tests Test 09/26/21 11:36 09/26/21 16:53 09/26/21 19:13 09/27/21 08:19 Glucose (Fingerstick) 259 mg/dL (70-99) 285 mg/dL (70-99) 267 mg/dL (70-99) 240 mg/dL (70-99) Micro Blood culture GPC pending CT head noted CT abdomen reviewed IMPRESSION: 1. Moderate to large amount of colonic stool. Correlate for constipation. 2. Hepatomegaly and hepatic steatosis. 3. Small hypodense lesions within the liver. These are too small to characterize. In the absence of known malignancy, these are likely cysts or hemangiomas. Liver protocol MRI can be performed to confirm benignity if there is clinical concern. 4. Prominent right renal collecting system likely due to a distended urinary bladder. No obstructing lesion is seen. 5. Simple right renal cyst. Follow-up is not routinely performed for simple cysts. Objective: Assessment: 1. Fever resolved 2. CT showing partial opacification of the left posterior mastoid air cells with partial erosion of the bony margins suggesting underlying mass lesion or possible vascular malformation. No previous CT for comparison. Mild headache letter will be viral 3. Status post COVID booster vaccine with the above symptoms. 4. Gram-positive cocci bacteremia in 1 out of 2 bottles present on admission Strep mutans, could be a contaminant. Follow-up blood cultures negative 5. Diabetes mellitus. 6. Generalized myalgia and achiness. 7. Schizophrenia.Bipolar. 8. Hyperlipidemia. 9. Chronic back pain. 10. Abdominal discomfort, constipation Possible aspiration pneumonia Plan: Plan of Care Continue Augmentin for 5more days Was on Zosyn Maintain aspiration precautions PT and OT as tolerated Monitor labs and cultures Continue supportive care Discussed with CARRINGTON ANDINO MD Sep 27, 2021 09:52
[2021-09-27] MEDS: FENOFIBRATE,MICRONIZED 134 MG CAPSULE PO SCH (10:10)
[2021-09-27] MEDS: ASPIRIN CHEWABLE 81 MG TABLET. PO SCH (10:10)
[2021-09-27] MEDS: FAMOTIDINE 20 MG TABLET. PO SCH (10:11)
[2021-09-27] MEDS: ARIPiprazole 5 MG TABLET PO SCH (10:11)
[2021-09-27] MEDS: LACTOBACILLUS RHAMNOSUS GG 1 CAPSULE. PO SCH (10:12)
[2021-09-27] MEDS: CETIRIZINE HCL 10 MG TABLET. PO SCH (10:12)
[2021-09-27] MEDS: LINAGLIPTIN 5 MG TABLET PO SCH (10:12)
[2021-09-27] MEDS: ATENOLOL 50 MG TABLET. PO SCH (10:12)
[2021-09-27] MEDS: LISINOPRIL 20 MG TABLET PO SCH (10:13)
[2021-09-27] MEDS: LIDOCAINE (700MG/PATCH) PATCH. TD SCH (10:14)
[2021-09-27] MEDS: ENOXAPARIN 40 MG/0.4 ML SYRINGE. SQ SCH (10:16)
[2021-09-27] MEDS: AMOXICILLIN/K CLAV 875/125MG TABLET. PO SCH (10:24)
[2021-09-27] MEDS: traMADol 50 MG TABLET PO PRN (10:29)
[2021-09-27] MEDS: INSULIN LISPRO 300 UNITS/3 ML VIAL. SQ SCH ×3 (10:40→19:19)
[2021-09-27 11:00] VITALS: BP 126/72
--- NOTE | 2021-09-27 11:08 | PDOC ---
CLAY ORTEGA CAD CAM PROGRAMMER 09/27/21 1108: CARDIO Progress Notes Date and Time Date of Service 09/27/21 Time of Evaluation 1115 Subjective Subjective: No Chest Pain, No shortness of breath Vitals Vitals Vital Signs Date Time Temp Pulse Resp B/P (MAP) Pulse Ox O2 Delivery O2 Flow Rate FiO2 09/27/21 10:29 20 92 Nasal Cannula 3.0 09/27/21 10:13 86 116/74 09/27/21 07:00 97.6 97.6 Weight Weight [ ] Input and Output Intake and Output Intake and Output 09/27/21 07:00 Output Total 1775 ml Balance -1775 ml Output Urine Total 1775 ml Laboratory Labs Laboratory Tests Test 09/26/21 11:36 09/26/21 16:53 09/26/21 19:13 09/27/21 08:19 Glucose (Fingerstick) 259 mg/dL (70-99) 285 mg/dL (70-99) 267 mg/dL (70-99) 240 mg/dL (70-99) Microbiology Micro Microbiology 09/24/21 Gram Stain Evaluation - Final, Complete 09/24/21 Respiratory Culture - Final, Complete 09/21/21 Blood Culture - Final, Complete NO GROWTH AFTER 5 DAYS 09/19/21 Urine Culture - Final, Complete Physical Exam HEENT: Neck Supple W Full Motion Chest: Symmetric LUNGS: Clear to Auscultation Heart: RRR Abdomen: Soft N/T Extremities: No Edema Neurology: alert, oriented, follow commands Assessment Assessment 1. Acute respiratory failure secondary to PNA, CHF 2. Acute on chronic diastolic CHF; improved s/p IV Lasix. Echo with preserved LV systolic function 3. S/p recent COVID vaccine booster 4. Fevers, myalgias; resolved 5. Hypertension; controlled 6. Hyperlipidemia; statin. LDL 109 7. Diabetes, II 8. Schizophrenia Recommendations ASA, statin therapy Ongoing antibiotic therapy Additional Lasix PRN Consider outpatient ischemic evaluation given risk factors Supportive care Follow up in our office has been arranged Justicifation of Admission Dx: Justifications for Admission: Justification of Admission Dx: Yes Comments: Acute respiratory failure, PNA Acute on chronic diastolic CHF GRADY CASTILLO MD 09/27/21 1919: CARDIO Progress Notes Plan Plan Patient seen and examined. Agree with above nurse practitioner note. Echocardiogram is grossly unremarkable. Continue mild diuresis as tolerated. Continue antibiotics and treatment of pulmonary issues per ID and pulmonary service CLAY ORTEGA APRN Sep 27, 2021 11:08 GRADY CASTILLO MD Sep 27, 2021 19:19
--- NOTE | 2021-09-27 11:46 | CARD ---
MR#: [id number] Date of Study: 09/27/2021 Ordering Physician: JASMIN CHO, Referring Physician: JASMIN CHO, Tech: Shruthi Chen [facility] APPROVED REPORT EXAM: Two-dimensional and M-mode echocardiogram with Doppler and color Doppler. Other Information Quality : Technically LimitedHR: 89bpm Rhythm : NSRTechnically limited study due to body habitus and pt. compliance. INDICATION Congestive Heart Failure RISK FACTORS Hypertension Obesity Hyperlipidemia Diabetes 2D DIMENSIONS Left Atrium(2D)3.7 (1.6-4.0cm)IVSd1.4 (0.7-1.1cm) Aortic Root(2D)3.8 (2.0-3.7cm)LVDd4.8 (3.9-5.9cm) LVOT Diameter2.3 (1.8-2.4cm)PWd1.5 (0.7-1.1cm) LVDs3.2 (2.5-4.0cm)FS (%) 33.5 % SV68.3 mlLVEF(%)62.0 (>50%) Aortic Valve AoV Peak Kashif.145.9cm/Maggy Peak GR.8.5mmHg Tricuspid Valve TR P. [id number] Peak Gr.24mmHg LEFT VENTRICLE The left ventricle is normal size. There is mild concentric left ventricular hypertrophy. The left ve ntricular systolic function is normal and the ejection fraction is within normal range. Estimated eje ction fraction 55%. Grossly normal segmental wall motion. Limited images. Tissue Doppler imaging reve als moderate left ventricular diastolic dysfunction. RIGHT VENTRICLE The right ventricle is normal size. There is normal right ventricular wall thickness. The right ventr icular systolic function is normal. ATRIA The left atrium size is normal. The right atrium size is normal. The interatrial septum is intact wit h no evidence for an atrial septal defect or patent foramen ovale as noted on 2-D or Doppler imaging. AORTIC VALVE The aortic valve is normal in structure and function. Doppler and Color Flow revealed no significant aortic regurgitation. There is no significant aortic valvular stenosis. MITRAL VALVE The mitral valve is normal in structure and function. There is no evidence of mitral valve prolapse. There is no mitral valve stenosis. Doppler and Color-flow revealed trace to mild mitral regurgitation . TRICUSPID VALVE The tricuspid valve is normal in structure and function. Doppler and Color Flow revealed trace tricus pid regurgitation. Estimated PAP 28-30 mmHg. There is no tricuspid valve stenosis. PULMONIC VALVE Doppler and Color Flow revealed no pulmonic valvular regurgitation. There is no pulmonic valvular modesto nosis. GREAT VESSELS The aortic root is normal in size. The ascending aorta is normal in size. The IVC is normal in size a nd collapses >50% with inspiration. PERICARDIAL EFFUSION There is no evidence of significant pericardial effusion. Critical Notification Critical Value: No <Conclusion> The left ventricular systolic function is normal and the ejection fraction is within normal range. E stimated ejection fraction 55%. Grossly normal segmental wall motion. Limited images. Doppler and Color Flow revealed trace tricuspid regurgitation. Estimated PAP 28-30 mmHg. Signed by : David Luu, Electronically Approved : 09/27/2021 11:46:02
[2021-09-27 15:00] VITALS: BP 113/64
--- NOTE | 2021-09-27 15:25 | SNU/HH DC ---
DISCHARGE WITH HOME HEALTH DISCHARGE INFORMATION: Discharge Date: Sep 27, 2021 Final Diagnosis: Problems Medical Problems: (1) Abnormal head CT Status: Acute (2) Diabetes mellitus Status: Acute (3) Fever Status: Acute (4) Generalized weakness Status: Acute Condition on Discharge: Stable CODE STATUS: Code Status: Full HOME HEALTH: Face to Face: I certify this patient is under my care and that I, or a nurse practitioner or physician's information services assistant working with me, had a face to face encounter that meets the physician face to face encounter requirements with this patient on []. Medical Complications: Pneumonia RN For Eval/Treatment: Yes Physical Therapy For: Evalulation/Treatment CLIN NURSE SPEC For: Community Resources Pt Meets Homebound Status: Poor coordination w/ amb. POST DISCHARGE ORDERS: Activity Instructions for Disc: Activity as tolerated DIET AFTER DISCHARGE: ADA CHECKS AFTER DISCHARGE: Checks after discharge: Check blood press - daily, Check blood sugar, ac/hs TREATMENT/EQUIPMENT ORDERS: Discharge Respiratory Equipmen: Oxygen CERTIFICATION STATEMENT: Certification Statement: Certification Statement: Based on the above finding, I certify that this patient is confined to the home and needs intermittent [place] [facility] care, physical therapy and/or speech therapy, or continues to need occupational therapy.~ This patient is under my care, and I have initiated the establishment of the plan of care.~ This patient will be followed by myself or a community physician who will periodically review the plan of care. Home Meds Active Scripts Lidocaine (Lidocaine PATCH ) 1 Each Adh..patch, 1 PATCH TD DAILY for pain for 30 Days, #30 PATCH Prov:JASMIN CHO MD 09/27/21 Dexamethasone (Decadron) 4 Mg Tablet, 4 MG PO DAILYWBKFT for lungs for 5 Days, #5 TAB Prov:JASMIN CHO MD 09/27/21 Famotidine (PEPCID) 20 Mg Tablet, 20 MG PO BID, #14 TAB Prov:DEBRA SILVER DO 03/06/21 Ondansetron (ONDANSETRON ODT) 4 Mg Tab.rapdis, 1 TAB PO PRN Q6-8HRS PRN for NAUSEA, #16 TAB Prov:DEBRA SILVER DO 03/06/21 Reported Medications Insulin Degludec (Tresiba) 100 Unit/1 Ml Vial, 35 UNIT SQ QHS for DM, EACH 09/19/21 Dulaglutide (Trulicity) 0.75 Mg/0.5 Ml Pen.injctr, 0.5 MG SQ WEEKLY for DM, EACH 09/19/21 Metformin Hcl (METFORMIN HCL) 1,000 Mg Tablet, 1000 MG PO BIDWMEALS for DM, TAB 09/19/21 Aspirin (ASPIRIN) 81 Mg Tab.chew, 81 MG PO DAILY for PPX, TAB.CHEW 09/19/21 Lisinopril (LISINOPRIL) 40 Mg Tablet, 40 MG PO DAILY for FOR HYPERTENSION, #30 TAB 0 Refills 09/19/21 Sitagliptin Phosphate (JANUVIA) 100 Mg Tablet, 100 MG PO DAILY for DM, TAB 09/19/21 Glimepiride (GLIMEPIRIDE) 4 Mg Tablet, 4 MG PO BID for DM, TAB 09/19/21 Fenofibrate Nanocrystallized (FENOFIBRATE) 145 Mg Tablet, 145 MG PO DAILY for HLD, TAB 09/19/21 Dapagliflozin Propanediol (FARXIGA) 10 Mg Tablet, 10 MG PO DAILY for DM, TAB 09/19/21 Divalproex Sodium (DEPAKOTE ER) 500 Mg Tab.er.24h, 2000 MG PO QHS for bipolar, TAB.SR 09/19/21 Clonazepam (CLONAZEPAM) 1 Mg Tablet, 1 MG PO PRN DAILY PRN for ANXIETY / AGITATION, TAB 09/19/21 Cetirizine Hcl (CETIRIZINE HCL) 10 Mg Tablet, 10 MG PO DAILY for ALLERGIES, TAB 09/19/21 Atorvastatin Calcium (ATORVASTATIN CALCIUM) 40 Mg Tablet, 40 MG PO HS for FOR CHOLESTEROL, #30 TAB 0 Refills 09/19/21 Atenolol (ATENOLOL) 50 Mg Tablet, 50 MG PO DAILY for HTN, TAB 09/19/21 Aripiprazole (ABILIFY) 30 Mg Tablet, 30 MG PO DAILY for schizo/bipolar, TAB 09/19/21 Icosapent Ethyl (VASCEPA) 1 Gm Capsule, 2 GM PO BID for HLD, CAP 09/19/21 Triamterene/Hydrochlorothiazid (TRIAMTERENE-HCTZ 37.5-25 MG CP) 1 Each Capsule, 1 CAP PO DAILY for HTN, CAP 09/19/21 Quetiapine Fumarate (QUETIAPINE FUMARATE) 400 Mg Tablet, 800 MG PO HS for schizophrenia, TAB 09/19/21 JASMIN CHO MD Sep 27, 2021 15:25
--- NOTE | 2021-09-27 15:33 | NUR ---
SW following. Discussed with RN, discharge order for home with home health. [facility] spoke with pt's sister, Lisa ( who he lives with), [facility] [place] speaking [facility]. 6 minute walk ordered. Zoltan Hankins RN notified. Discharge after 6 minute walk, awaiting result. [facility] will continue to follow. Addendum: 09/27/21 at 1643 by CARI AHUJA Pt completed 6 minute walk, does not need home oxygen. 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
[2021-09-27 19:00] VITALS: BP 122/68
--- NOTE | 2021-09-27 20:00 | NUR ---
Discharge Note: [place] Discharge instructions and discharge home medications reviewed with Family Member and a copy given. All questions have been answered and understanding verbalized. The following instructions and handouts were given: Home instruction, medications list, diet and activity. Discontinued lines and drains: Salin lock discontinue, skin intact. Patient discharged to Home with Sister via private vehicle. all belongings taken with him.
[2021-09-30] MEDS ORDERED: POLY17PO52 PO (09:53)
[2021-09-30] MEDS ORDERED: SENN-209 PO (09:53)
[2021-09-30] MEDS ORDERED: TAMS0.4C97 PO (09:53)
[2021-09-30] MEDS ORDERED: INSU100V35 SQ (09:53)
== END 2021-09-27 20:00 | disposition still patient (30) | DRG 193 ==
LOC: ER 09:26 → ED HOLD 13:40 → 5 NORTH 15:42 → OBSVTOIN 09-21 10:38 → 5 NORTH 09-22 12:15
PROVIDERS: ADMIT Internal Medicine; ATTEND Internal Medicine
DX: J18.9 Pneumonia, unspecified organism (principal); I50.33 Acute on chronic diastolic (congestive) heart failure; J96.01 Acute respiratory failure with hypoxia; J98.11 Atelectasis; R78.81 Bacteremia; B96.89 Other specified bacterial agents as the cause of diseases classified elsewhere; E11.9 Type 2 diabetes mellitus without complications; E66.9 Obesity, unspecified; E78.00 Pure hypercholesterolemia, unspecified; E78.5 Hyperlipidemia, unspecified; F20.9 Schizophrenia, unspecified; F31.9 Bipolar disorder, unspecified; G89.29 Other chronic pain; I11.0 Hypertensive heart disease with heart failure; K59.00 Constipation, unspecified; K76.0 Fatty (change of) liver, not elsewhere classified; M17.0 Bilateral primary osteoarthritis of knee; M54.16 Radiculopathy, lumbar region; N28.1 Cyst of kidney, acquired; Z86.16 Personal history of COVID-19; Z87.891 Personal history of nicotine dependence; M19.90 Unspecified osteoarthritis, unspecified site
CPT/HCPCS: 36415; 70450; 71045; 71250; 73501; 74177; 80048; 80053; 80061; 81001; 82550; 82962; 83605; 83735; 83880; 84100; 85007; 85025; 87040; 87070; 87077; 87086; 87205; 87426; 87804; 93005; 93306; 94618; 96361; 96374; G0378; G0379; J0878; J1650; J1815; J1940; J2543; J3010; J7030; Q9966; Q9967; U0003; U0005; 97110-GP; 97116-GP; 97530-GO; 97530-GP; 97535-GO; 99285-25

== ENCOUNTER 2021-12-12 20:36 | Inpatient (IN) | payer OTHER, MEDICAID ==
[~2021-12-12] VITALS: Ht 167.6 cm; Wt 116.3 kg
[~2021-12-12 20:36] MED LIST changes: +ARIP30TA4 PO; +ASPI-630 PO; +ATEN50TA PO; +ATOR40TA59 PO; +CETI10TA16 PO; +CLONAZEPAM1 MG PO; +DAPA10TA PO; +DEXA4TAB63 PO; +DIVA500T4 PO; +DULA0.75 SQ; +FENO145T3 PO; +GLIM4TAB8 PO; +ICOS1CAP PO; +INSU100V35 SQ; +INSU100V37 SQ; +LIDO700A21 TD; +LISI-130 PO; +METF10007 PO; +POLY17PO52 PO; +QUET400T2 PO; +SENN-209 PO; +SITA100T PO; +TAMS0.4C97 PO; +TRIA1CAP3 PO
[2021-12-12] MEDS ORDERED: VANCOMYCIN PER PHARMACY MC PRN (22:15)
[2021-12-12 22:32] LABS: BASO % 1 % (0-3); EOS # 0.2 x10^3/uL (0.0-0.7); EOS % 5 % (0-3); HEMATOCRIT 34.9 % (39.0-53.0); HEMOGLOBIN 11.3 g/dL (13.0-17.5); LYMPH # 1.6 x10^3/uL (1.0-4.8); LYMPH % 29 % (24-48); MEAN CORPUSCULAR HEMOGLOBIN 27 pg (25-35); MEAN CORPUSCULAR HGB CONC 32 g/dL (31-37); MEAN CORPUSCULAR VOLUME 85 fL (79-100); MONO # 0.6 x10^3/uL (0.0-1.1); MONO % 10 % (0-9); NEUT # 2.9 x10^3/uL (1.8-7.7); NEUT % 55 % (31-73); PLATELET COUNT 144 x10^3/uL (140-400); RED BLOOD COUNT 4.12 x10^6/uL (4.30-5.70); RED CELL DISTRIBUTION WIDTH 16.3 % (11.5-14.5); WHITE BLOOD COUNT 5.3 x10^3/uL (4.0-11.0)
[2021-12-12 22:43] LABS: CALCIUM 9.9 mg/dL (8.5-10.1); GFR 76.2; POTASSIUM 3.8 mmol/L (3.5-5.1)
[2021-12-12 22:49] LABS: ALBUMIN 3.4 g/dL (3.4-5.0); ALBUMIN/GLOBULIN RATIO 0.9 (1.0-1.7); MAGNESIUM 2.4 mg/dL (1.8-2.4); TOTAL BILIRUBIN 0.2 mg/dL (0.2-1.0); TOTAL PROTEIN 7.3 g/dL (6.4-8.2)
[2021-12-12] MEDS ORDERED: VANCOMYCIN 2 GM in IV NORMAL SALINE 500ML BAG 500 ML IV ONE (23:00)
--- NOTE | 2021-12-12 23:01 | RAD ---
Exam: Chest one view INDICATION: Leg swelling TECHNIQUE: Frontal view of the chest Comparisons: 09/28/2021 FINDINGS: Heart is mildly enlarged. Pulmonary vessels are within normal limits. Subtle bibasilar airspace disease. No pleural effusion. IMPRESSION: Subtle bibasilar airspace disease may be infectious or inflammatory in etiology. Electronically signed by: Mundo Crowe MD (12/12/2021 10:58 PM) [facility]
--- NOTE | 2021-12-12 23:47 | RAD ---
Bilateral lower extremity venous duplex Doppler ultrasound HISTORY: Bilateral leg swelling and edema. FINDINGS: No DVT evidence by crawford scale sonography with compressibility, color Doppler blood flow and augmentation of flow to the common femoral veins, profunda femoral veins, superficial femoral veins and popliteal veins. In caliber Doppler blood flow to the posterior tibial and peroneal veins in the calves. There is calf soft tissue edema. Prominent-sized left inguinal lymph node with thickened yoli ex and echogenic fatty hilum, this lymph node measures 3.8 x 1.4 cm. IMPRESSION: Negative bilateral legs for DVT. See above. Electronically signed by: Charles Schwarz MD (12/12/2021 11:44 PM) [facility]
--- NOTE | 2021-12-13 00:12 | RAD ---
Bilateral lower extremity arterial duplex Doppler ultrasound HISTORY: Bilateral leg pain and discoloration of the bilateral lower legs. FINDINGS: Right leg arteries demonstrate no plaquing, thrombus, stenosis or occlusion. There are normal triphas ic waveforms of the common and profunda femoral arteries, biphasic waveforms of the superficial femor al and popliteal artery, with monophasic waveforms of the calf arteries and dorsalis pedis artery. No elevated flow velocities to localize a significant stenosis.. Dorsalis pedis artery demonstrates a b lunted and delayed systolic upstroke could be tardus parvus waveform which can indicate a proximal up stream significant stenosis. No occlusion evident. Individual flow velocities are described below. Common femoral artery: 204 cm/s Profunda femoral artery: 122 cm/s Superficial femoral artery: 156 cm/s upper thigh, 131 cm/s mid thigh, 106 cm/s lower thigh Popliteal artery: 120 cm/s Posterior tibial artery: 104 cm/s upper calf, 120 cm/s lower calf Peroneal artery: 49 cm/s Anterior tibial artery: 86 cm/s Dorsalis pedis artery: 21 cm/s Left leg arteries demonstrate no plaquing, thrombus, stenosis or occlusion. There are normal triphasi c waveforms of the common and profunda femoral arteries, biphasic waveforms of the superficial femora l and popliteal artery, with monophasic waveforms of the calf arteries and dorsalis pedis artery. No elevated flow velocities to localize a significant stenosis. Occlusion evident. Individual flow veloc ities are described below. Common femoral artery: 146 cm/s Profunda femoral artery: 102 cm/s Superficial femoral artery: 146 cm/s upper thigh, 118 cm/s mid thigh, 107 cm/s lower thigh Popliteal artery: 123 cm/s Posterior tibial artery: 125 cm/s upper calf, 96 cm/s lower calf Peroneal artery: 91 cm/s Anterior tibial artery: 108 cm/s Dorsalis pedis artery: 138 cm/s Impression: No occlusion evident. No elevated flow velocities to provide direct evidence of a hemodyn amically significant stenosis. The right dorsalis pedis artery demonstrates a decreased flow velocity and tardus parvus waveform which is likely indirect evidence of a significant stenosis of the more p roximal upstream vessel in the foot or ankle. Electronically signed by: Charles Schwarz MD (12/13/2021 12:09 AM) [facility]
--- NOTE | 2021-12-13 00:17 | PHYS DOC ---
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 reports he was seen by Dr. Luu on the , had his Lasix increased to 40 mg daily. Is pending labs including a BNP and arterial and venous lower extremity ultrasounds. No history of MRSA. Review of Systems: Review of Systems: Constitutional: Denies fever or chills. [] Eyes: Denies change in visual acuity. [] HENT: Denies nasal congestion or sore throat. [] Respiratory: Denies cough or shortness of breath. [] Cardiovascular: Denies chest pain or palpitations GI: Denies nausea or vomiting : Denies dysuria or hematuria Musculoskeletal: Denies back pain or joint pain. [] Integument: Denies desquamation or diaphoresis Neurologic: Denies headache, focal weakness or sensory changes. [] Endocrine: Denies polyuria or polydipsia. [] Lymphatic: Denies swollen glands. [] Psychiatric: Denies depression or anxiety. [] Heart Score: C/O Chest Pain: No Risk Factors: Risk Factors: DM, Current or recent (<one month) smoker, HTN, HLP, family history of CAD, obesity. Risk Scores: Score 0 - 3: 2.5% MACE over next 6 weeks - Discharge Home Score 4 - 6: 20.3% MACE over next 6 weeks - Admit for Clinical Observation Score 7 - 10: 72.7% MACE over next 6 weeks - Early Invasive Strategies Current Medications: Current Medications Medications (Trade) Dose Ordered Sig/George Start Time Stop Time Status Last Admin Dose Admin Vancomycin HCl (Vanco Per Pharmacy) 1 each PRN DAILY PRN 12/12/21 22:15 Vancomycin HCl 2 gm/Sodium Chloride 500 ml @ 250 mls/hr 1X ONCE 12/12/21 23:00 12/13/21 00:59 12/12/21 22:34 250 MLS/HR Allergies: Allergies: Allergies Coded Allergies Type Severity Reaction Last Updated Verified No Known Drug Allergies 03/06/21 No Physical Exam: PE: Constitutional: Well developed, well nourished, no acute distress, non-toxic appearance. HENT: Normocephalic, atraumatic, Eyes: EOMI, conjunctiva normal, no discharge. Neck: Normal range of motion, supple, Cardiovascular: S1/2 present, regular rhythm Lungs & Thorax: Speaking in full sentences, bilateral equal chest rise, no tachypnea or increased work of breathing Abdomen: soft, no tenderness, obese abdomen Skin: Warm, dry, Back: No tenderness, no CVA tenderness. [] Extremities: No cyanosis, pitting, equal lower extremity edema with significant hemosiderin deposition, circumferential erythema and warmth over proximal left leg, equal DP/PT pulses Neurologic: Alert, no focal deficits noted. [] Psychologic: Affect normal, calm mood Current Patient Data: Labs: Laboratory Tests Test 12/12/21 22:20 White Blood Count 5.3 x10^3/uL (4.0-11.0) Red Blood Count 4.12 x10^6/uL (4.30-5.70) L Hemoglobin 11.3 g/dL (13.0-17.5) L Hematocrit 34.9 % (39.0-53.0) L Mean Corpuscular Volume 85 fL (79-100) Mean Corpuscular Hemoglobin 27 pg (25-35) Mean Corpuscular Hemoglobin Concent 32 g/dL (31-37) Red Cell Distribution Width 16.3 % (11.5-14.5) H Platelet Count 144 x10^3/uL (140-400) Neutrophils (%) (Auto) 55 % (31-73) Lymphocytes (%) (Auto) 29 % (24-48) Monocytes (%) (Auto) 10 % (0-9) H Eosinophils (%) (Auto) 5 % (0-3) H Basophils (%) (Auto) 1 % (0-3) Neutrophils # (Auto) 2.9 x10^3/uL (1.8-7.7) Lymphocytes # (Auto) 1.6 x10^3/uL (1.0-4.8) Monocytes # (Auto) 0.6 x10^3/uL (0.0-1.1) Eosinophils # (Auto) 0.2 x10^3/uL (0.0-0.7) Basophils # (Auto) 0.0 x10^3/uL (0.0-0.2) Sodium Level 140 mmol/L (136-145) Potassium Level 3.8 mmol/L (3.5-5.1) Chloride Level 101 mmol/L (98-107) Carbon Dioxide Level 29 mmol/L (21-32) Anion Gap 10 (6-14) Blood Urea Nitrogen 22 mg/dL (8-26) Creatinine 1.0 mg/dL (0.7-1.3) Estimated GFR (Cockcroft-Gault) 76.2 BUN/Creatinine Ratio 22 (6-20) H Glucose Level 167 mg/dL (70-99) H Lactic Acid Level 1.5 mmol/L (0.4-2.0) Calcium Level 9.9 mg/dL (8.5-10.1) Magnesium Level 2.4 mg/dL (1.8-2.4) Total Bilirubin 0.2 mg/dL (0.2-1.0) Aspartate Amino Transferase (AST) 10 U/L (15-37) L Alanine Aminotransferase (ALT) 19 U/L (16-63) Alkaline Phosphatase 39 U/L (46-116) L Troponin I High Sensitivity 5 ng/L (4-75) RN-Yyz-B-Type Natriuretic Peptide 150 pg/mL (0-124) H Total Protein 7.3 g/dL (6.4-8.2) Albumin 3.4 g/dL (3.4-5.0) Albumin/Globulin Ratio 0.9 (1.0-1.7) L Laboratory Tests 12/12/21 22:20 Laboratory Tests 12/12/21 22:20 Vital Signs: Vital Signs Date Time Temp Pulse Resp B/P (MAP) Pulse Ox O2 Delivery O2 Flow Rate FiO2 12/12/21 23:03 92 125/63 (83) 93 Room Air 12/12/21 21:38 98.3 20 98.3 EKG: EKG: sinus 94 bpm, left axis deviation, QTC 463, no T wave inversion, no ST elevation or ST depression Radiology/Procedures: Radiology/Procedures: IMAGING REPORT Signed PATIENT: ANTHONY OAKESOACCOUNT: [id number] : 1960 LOCATION: ER AGE: 61 SEX: M EXAM STATUS: REG ER ORD. PHYSICIAN: DUNIA MORALES DO REASON: leg sweling PROCEDURE: VENOUS LOWER EXT BILATERAL Bilateral lower extremity venous duplex Doppler ultrasound HISTORY: Bilateral leg swelling and edema. FINDINGS: No DVT evidence by crawford scale sonography with compressibility, color Doppler blood flow and augmentation of flow to the common femoral veins, profunda femoral veins, superficial femoral veins and popliteal veins. In caliber Doppler blood flow to the posterior tibial and peroneal veins in the calves. There is calf soft tissue edema. Prominent-sized left inguinal lymph node with thickened cortex and echogenic fatty hilum, this lymph node measures 3.8 x 1.4 cm. IMPRESSION: Negative bilateral legs for DVT. See above. Electronically signed by: Mary Schwarz MD (12/12/2021 11:44 PM) [facility] [place] SIGNED BY: MARY SCHWARZ MD DATE: 12/12/21 [id number] IMAGING REPORT Signed PATIENT: NEIL OAKESUNT: [id number] : 1960 LOCATION: ER AGE: 61 SEX: M EXAM STATUS: REG ER ORD. PHYSICIAN: DUNIA MORALES DO REASON: leg sweling PROCEDURE: DUPLEX LOWER EXTREMITY BILAT Bilateral lower extremity arterial duplex Doppler ultrasound HISTORY: Bilateral leg pain and discoloration of the bilateral lower legs. FINDINGS: Right leg arteries demonstrate no plaquing, thrombus, stenosis or occlusion. There are normal triphasic waveforms of the common and profunda femoral arteries, biphasic waveforms of the superficial femoral and popliteal artery, with monophasic waveforms of the calf arteries and dorsalis pedis artery. No elevated flow velocities to localize a significant stenosis.. Dorsalis pedis artery demonstrates a blunted and delayed systolic upstroke could be tardus parvus waveform which can indicate a proximal upstream significant stenosis. No occlusion evident. Individual flow velocities are described below. Common femoral artery: 204 cm/s Profunda femoral artery: 122 cm/s Superficial femoral artery: 156 cm/s upper thigh, 131 cm/s mid thigh, 106 cm/s lower thigh Popliteal artery: 120 cm/s Posterior tibial artery: 104 cm/s upper calf, 120 cm/s lower calf Peroneal artery: 49 cm/s Anterior tibial artery: 86 cm/s Dorsalis pedis artery: 21 cm/s Left leg arteries demonstrate no plaquing, thrombus, stenosis or occlusion. There are normal triphasic waveforms of the common and profunda femoral arteries, biphasic waveforms of the superficial femoral and popliteal artery, with monophasic waveforms of the calf arteries and dorsalis pedis artery. No elevated flow velocities to localize a significant stenosis. Occlusion evident. Individual flow velocities are described below. Common femoral artery: 146 cm/s Profunda femoral artery: 102 cm/s Superficial femoral artery: 146 cm/s upper thigh, 118 cm/s mid thigh, 107 cm/s lower thigh Popliteal artery: 123 cm/s Posterior tibial artery: 125 cm/s upper calf, 96 cm/s lower calf Peroneal artery: 91 cm/s Anterior tibial artery: 108 cm/s Dorsalis pedis artery: 138 cm/s Impression: No occlusion evident. No elevated flow velocities to provide direct evidence of a hemodynamically significant stenosis. The right dorsalis pedis artery demonstrates a decreased flow velocity and tardus parvus waveform which is likely indirect evidence of a significant stenosis of the more proximal upstream vessel in the foot or ankle. Electronically signed by: Mary Schwarz MD (12/13/2021 12:09 AM) [facility] [place] SIGNED BY: MARY SCHWARZ MD DATE: 12/13/21 [id number] IMAGING REPORT Signed PATIENT: ANTHONY OAKESOACCOUNT: [id number] : 1960 LOCATION: ER AGE: 61 SEX: M EXAM STATUS: REG ER ORD. PHYSICIAN: DUNIA MORALES DO REASON: leg swelling/rash PROCEDURE: PORTABLE CHEST 1V Exam: Chest one view INDICATION: Leg swelling TECHNIQUE: Frontal view of the chest Comparisons: 09/28/2021 FINDINGS: Heart is mildly enlarged. Pulmonary vessels are within normal limits. Subtle bibasilar airspace disease. No pleural effusion. IMPRESSION: Subtle bibasilar airspace disease may be infectious or inflammatory in etiology. Electronically signed by: Mundo Calhoun MD (12/12/2021 10:58 PM) [facility] DICTATED and SIGNED BY: MUNDO CALHOUN MD DATE: 12/12/21 [id number] Course & Med Decision Making: Course & Med Decision Making Pertinent Labs and Imaging studies reviewed. (See chart for details) Concern for venous stasis and peripheral arterial disease in the setting of right lower extremity cellulitis, does not meet sepsis criteria. Will admit for IV antibiotics, consider vascular consultation. Patient stable at time of admis maría and agrees with this plan. I have spoken with the patient and/or caregivers. I have explained the patient's condition, diagnosis and treatment plan based on the information available to me at this time. I have answered the patient's and/or caregivers questions and answered any concerns. The patient and/or caregivers have as good an understanding of the patient's diagnosis, condition and treatment plan as can be expected at this point. The patient has been stabilized within the capabili ty of the emergency department. The patient will be transported for further care and management or will be moved to an observation or inpatient service. I have communicated with the staff or medical practitioner taking over this patient's care. Tha Disclaimer: Tha Disclaimer: This electronic medical record was generated, in whole or in part, using a voice recognition dictation system. Departure Departure Impression: Primary Impression: Lower extremity cellulitis Disposition: ADMITTED INPATIENT Admitting Physician: Doug Cho Condition: STABLE Referrals: DOUG CHO MD (PCP) DUNIA BALLESTEROS DO Dec 13, 2021 00:17
[2021-12-13 02:14] VITALS: BP 110/57
[2021-12-13] MEDS ORDERED: ACET1TAB33 PO (02:37)
[2021-12-13] MEDS ORDERED: FURO40TA4 PO (02:38)
--- NOTE | 2021-12-13 04:05 | EKG ---
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
[2021-12-13 07:00] VITALS: BP 106/63
[2021-12-13] MEDS ORDERED: SENNOSIDES/DOCUSATE 8.6/50MG TABLET. PO PRN (09:15)
[2021-12-13] MEDS ORDERED: ACETAMINOPHEN/CODEINE 300/30MG TABLET. PO PRN (09:15)
[2021-12-13] MEDS ORDERED: POLYETHYLENE GLYCOL 3350 17 GM PACKET. PO PRN (09:15)
[2021-12-13] MEDS ORDERED: IV DEXTROSE 5% 250 ML BAG. IV PRN (09:15)
[2021-12-13] MEDS ORDERED: DEXTROSE 50% 25 GM / 50ML DISP.SYRIN. IV PRN (09:15)
--- NOTE | 2021-12-13 09:21 | PDOC ---
Provider Note Date of Service: DATE: 12/13/21 TIME: 09:21 Provider Note pt seen .H&P dictated.#[id number]. Justifications for Admission Other Justification JASMIN CHO MD Dec 13, 2021 09:21
[2021-12-13] MEDS ORDERED: POLYETHYLENE GLYCOL 3350 17 GM PACKET. PO SCH (10:00)
[2021-12-13] MEDS ORDERED: clonazePAM 0.5 MG TABLET PO PRN (10:00)
[2021-12-13 11:00] VITALS: BP 110/62
[2021-12-13] MEDS ORDERED: VANCOMYCIN 1.75 GM in IV NORMAL SALINE 500ML BAG 500 ML IV SCH (11:00)
--- NOTE | 2021-12-13 11:04 | HP ---
DATE OF SERVICE: 12/13/2021 ADMIT DATE: 12/12/2021 MEDICAL HISTORY AND PHYSICAL REASON FOR ADMISSION TO THE HOSPITAL: Cellulitis of the leg. HISTORY OF PRESENT ILLNESS: The patient is a 61-year-old male patient well known to me. He has history of diabetes, morbid obesity, stasis dermatitis. He has developed some redness in the right leg, came to the Emergency Room, was found to have cellulitis. Doppler negative for DVT. Has some decreased blood flow with arterial Doppler. He was admitted for IV antibiotics. PAST MEDICAL HISTORY: The patient has history of diabetes, obesity, schizophrenia. Last admission was in October for COVID vaccination related pneumonitis. PAST SURGICAL HISTORY: No major surgeries. PERSONAL HISTORY: Former smoker. Denies smoking. No alcohol or drug abuse. SOCIAL HISTORY: Lives at home with his sister. Ambulates with a cane. Sees [facility]. ALLERGIES: No known drug allergies. MEDICATIONS: The patient is on Abilify 30 mg, aspirin 81 mg, atenolol 50 mg, atorvastatin 40 mg, cetirizine 10 mg, clonazepam 1 mg, Farxiga 10 mg, Depakote 500 mg, Trulicity once a week, Pepcid 20 mg daily, fenofibrate 1 daily, glimepiride 4 mg twice a day, Tresiba 35 units at bedtime, lisinopril 40 mg daily, metformin 1000 twice a day, Seroquel 800 mg at bedtime, Januvia 100 mg daily, Dyazide 1 daily. REVIEW OF SYMPTOMS: Complains of swelling and pain in the right leg, otherwise no fever. Rest of the 14 systems reviewed and negative. PHYSICAL EXAMINATION: GENERAL: The patient is not in any distress, obese, BMI 41. VITAL SIGNS: Temperature 98, pulse 93, respirations 20, blood pressure 120/60, 95 on room air. HEENT: Head is atraumatic. Pupils equal. Oral cavity, no congestion. NECK: Supple. Thyroid not enlarged. JVD not elevated. CHEST: Symmetrical. Central obesity. No mass palpable. EXTERNAL GENITALIA: No Doty. RECTUM: Deferred. EXTREMITIES: Has chronic lymphedema of lower extremities, bilateral stasis dermatitis, chronic on the left leg and the right leg. There is a new area of redness extending from the previous stasis dermatitis above and warm to touch, slightly tender. The patient is obese. No ulcers on the foot. FINAL IMPRESSION: 1. Right leg cellulitis. 2. Chronic venous stasis with stasis dermatitis. 3. Morbid obesity. 4. Diabetes, insulin-dependent. 5. Schizophrenia. PLAN: At this time, was admitted to the hospital, was started on Ancef 1 gram q.8 hours. Rest, elevation. PT, OT and see how he improves in the next couple of days. He should be able to go home pretty soon. SELENE/CHERYL/SALMA DR: SELENE/krystle TID: [id number] MTDD
[2021-12-13] MEDS ORDERED: INSULIN LISPRO 100 UNIT/ML 3ML VIAL for OP,RR ONLY. SQ SCH (12:00)
[2021-12-13] MEDS: INSULIN LISPRO 300 UNITS/3 ML VIAL. SQ SCH ×2 (12:00→17:00)
[2021-12-13] MEDS: ceFAZolin SODIUM IV Push 1 GM VIAL. IVP SCH ×3 (12:11→21:17)
[2021-12-13] MEDS: FAMOTIDINE 20 MG TABLET. PO SCH ×2 (12:12→21:13)
[2021-12-13] MEDS: ATENOLOL 50 MG TABLET. PO SCH (12:12)
[2021-12-13] MEDS: GLIMEPIRIDE 2 MG TABLET. PO SCH ×2 (12:12→21:13)
[2021-12-13] MEDS: POLYETHYLENE GLYCOL 3350 17 GM PACKET. PO SCH ×2 (12:12→21:12)
[2021-12-13] MEDS: ASPIRIN CHEWABLE 81 MG TABLET. PO SCH (12:12)
[2021-12-13] MEDS: SENNOSIDES/DOCUSATE 8.6/50MG TABLET. PO SCH (12:12)
[2021-12-13] MEDS: CETIRIZINE HCL 10 MG TABLET. PO SCH (12:12)
[2021-12-13] MEDS: LINAGLIPTIN 5 MG TABLET PO SCH (12:12)
[2021-12-13] MEDS: LISINOPRIL 20 MG TABLET PO SCH (12:13)
[2021-12-13] MEDS: EMPAGLIFLOZIN 25 MG TABLET. PO SCH (12:18)
[2021-12-13] MEDS: ARIPiprazole 5 MG TABLET PO SCH (12:18)
[2021-12-13] MEDS: FUROSEMIDE 40 MG TABLET. PO SCH (12:18)
[2021-12-13] MEDS: TRIAMTERENE/HCTZ 37.5/25MG TABLET. PO SCH (12:18)
[2021-12-13] MEDS: FENOFIBRATE,MICRONIZED 134 MG CAPSULE PO SCH (12:18)
[2021-12-13] MEDS: OMEGA-3 FATTY ACIDS/FISH OIL 1,000 MG CAPSULE. PO SCH ×2 (12:19→21:12)
[2021-12-13] MEDS: LIDOCAINE (700MG/PATCH) PATCH. TD SCH (12:21)
[2021-12-13 15:00] VITALS: BP 114/66
[2021-12-13] MEDS: metFORMIN 500 MG TABLET PO SCH (18:09)
[2021-12-13 19:40] VITALS: BP 110/86
[2021-12-13] MEDS ORDERED: ATORVASTATIN CALCIUM 40 MG TABLET. PO SCH (21:00)
[2021-12-13] MEDS ORDERED: DIVALPROEX EXTENDED RELEASE 500 MG TAB.ER.24H. PO SCH (21:00)
[2021-12-13] MEDS ORDERED: INSULIN GLARGINE SYRINGE. SQ SCH (21:00)
[2021-12-13] MEDS ORDERED: TAMSULOSIN 0.4 MG CAP.ER.24H. PO SCH (21:00)
[2021-12-13] MEDS ORDERED: QUEtiapine 100 MG TABLET. PO SCH (21:00)
[2021-12-13] MEDS ORDERED: PATCH REMOVAL. MC SCH (21:00)
[2021-12-13] MEDS: LACTOBACILLUS RHAMNOSUS GG 1 CAPSULE. PO SCH (21:13)
[2021-12-13 23:00] VITALS: BP 118/56
[2021-12-14 02:17] VITALS: BP 109/64
[2021-12-14] MEDS: ceFAZolin SODIUM IV Push 1 GM VIAL. IVP SCH ×2 (06:00→13:34)
[2021-12-14 07:00] VITALS: BP 112/66
[2021-12-14] MEDS: INSULIN LISPRO 300 UNITS/3 ML VIAL. SQ SCH ×2 (08:00→12:30)
[2021-12-14] MEDS: OMEGA-3 FATTY ACIDS/FISH OIL 1,000 MG CAPSULE. PO SCH (08:46)
[2021-12-14] MEDS: metFORMIN 500 MG TABLET PO SCH (08:46)
[2021-12-14] MEDS: CETIRIZINE HCL 10 MG TABLET. PO SCH (08:46)
[2021-12-14] MEDS: ARIPiprazole 5 MG TABLET PO SCH (08:51)
[2021-12-14] MEDS: ASPIRIN CHEWABLE 81 MG TABLET. PO SCH (08:51)
[2021-12-14] MEDS: LACTOBACILLUS RHAMNOSUS GG 1 CAPSULE. PO SCH (08:51)
[2021-12-14] MEDS: FUROSEMIDE 40 MG TABLET. PO SCH (08:52)
[2021-12-14] MEDS: SENNOSIDES/DOCUSATE 8.6/50MG TABLET. PO SCH (08:53)
[2021-12-14] MEDS: GLIMEPIRIDE 2 MG TABLET. PO SCH (08:53)
[2021-12-14] MEDS: FENOFIBRATE,MICRONIZED 134 MG CAPSULE PO SCH (08:53)
[2021-12-14] MEDS: TRIAMTERENE/HCTZ 37.5/25MG TABLET. PO SCH (08:55)
[2021-12-14] MEDS: FAMOTIDINE 20 MG TABLET. PO SCH (08:56)
[2021-12-14] MEDS: LINAGLIPTIN 5 MG TABLET PO SCH (08:56)
[2021-12-14] MEDS: POLYETHYLENE GLYCOL 3350 17 GM PACKET. PO SCH (08:56)
[2021-12-14] MEDS: LISINOPRIL 20 MG TABLET PO SCH (08:56)
[2021-12-14] MEDS: ATENOLOL 50 MG TABLET. PO SCH (08:56)
[2021-12-14] MEDS: EMPAGLIFLOZIN 25 MG TABLET. PO SCH ×2 (08:57→08:59)
[2021-12-14] MEDS ORDERED: NON FORMULARY ITEM (Sitagliptin Phosphate (Januvia) 100 MG) PO SCH (09:00)
[2021-12-14] MEDS: LIDOCAINE (700MG/PATCH) PATCH. TD SCH (09:06)
--- NOTE | 2021-12-14 09:20 | PDOC ---
PROGRESS NOTES Date of Service: DATE: 12/14/21 TIME: 09:20 Subjective Subjective feels good Objective Objective Vital Signs Date Time Temp Pulse Resp B/P (MAP) Pulse Ox O2 Delivery O2 Flow Rate FiO2 12/14/21 07:00 97.7 94 14 112/66 (81) 92 Room Air 97.7 Intake and Output 12/14/21 07:00 Intake Total 0 ml Balance 0 ml Intake Oral 0 ml # Voids 5 # Bowel Movements 2 Physical Exam Abdomen: Soft Heart: Regular rate, Normal S1, Normal S2 Extremities: No clubbing General: Alert HEENT: Atraumatic Lungs: Clear to auscultation MUSCULOSKELETAL: No deformity, Osteoarthritic changes both hands Neuro: Normal speech Psych/Mental Status: Mental status NL Diagnosis Problem List Problems Medical Problems: (1) Lower extremity cellulitis Status: Acute Assessment Assessment Problems Medical Problems: (1) Lower extremity cellulitis Status: Acute FINAL IMPRESSION: 1. Right leg cellulitis. 2. Chronic venous stasis with stasis dermatitis. 3. Morbid obesity. 4. Diabetes, insulin-dependent. 5. Schizophrenia. PLAN: d/c home today spoke with pts sister PO augmentin+triamcinolone cream. At this time, was admitted to the hospital, was started on Ancef 1 gram q.8 hours. Rest, elevation. PT, OT and see how he improves in the next couple of days. He should be able to go home pretty soon. Plan Plan of Care Problems Medical Problems: (1) Lower extremity cellulitis Status: Acute Comment Review of Relevant I have reviewed the following items jayleen (where applicable) has been applied. Labs Laboratory Tests Test 12/13/21 11:51 12/13/21 17:08 12/13/21 21:11 12/14/21 07:21 Glucose (Fingerstick) 150 mg/dL (70-99) 142 mg/dL (70-99) 149 mg/dL (70-99) 93 mg/dL (70-99) Microbiology 12/12/21 Blood Culture - Preliminary, Resulted NO GROWTH AFTER 1 DAY Medications Current Medications Aripiprazole (Abilify) 30 mg DAILY PO Last administered on 12/14/21at 08:51; Start 12/13/21 at 10:00 Aspirin (Aspirin Chewable) 81 mg DAILY PO Last administered on 12/14/21at 08:51; Start 12/13/21 at 10:00 Atenolol (Tenormin) 50 mg DAILY PO Last administered on 12/13/21 12:12; Start 12/13/21 at 10:00 Atorvastatin Calcium (Lipitor) 40 mg HS PO Last administered on 12/13/21at 21:13; Start 12/13/21 at 21:00 Cefazolin Sodium (Ancef) 1 gm Q8HRS IVP Last administered on 12/14/21at 06:00; Start 12/13/21 at 10:00 Cetirizine HCl (ZyrTEC) 10 mg DAILY PO Last administered on 12/14/21 08:46; Start 12/13/21 at 10:00 Clonazepam (KlonoPIN) 1 mg PRN DAILY PRN PO ANXIETY / AGITATION; Start 12/13/21 at 10:00 Divalproex Sodium (Depakote Er) 2,000 mg QHS PO Last administered on 12/13/21at 21:12; Start 12/13/21 at 21:00 Empaglifozin (Jardiance) 25 mg DAILY PO Last administered on 12/13/21 12:18; Start 12/13/21 at 12:00 Famotidine (Pepcid) 20 mg BID PO Last administered on 12/14/21 08:56; Start 12/13/21 at 10:00 Fenofibrate (Lofibra) 134 mg DAILY PO Last administered on 12/14/21 08:53; Start 12/13/21 at 10:00 Fish Oil (Fish Oil) 2,000 mg BID PO Last administered on 12/14/21 08:46; Start 12/13/21 at 12:00 Furosemide (Lasix) 40 mg DAILY PO Last administered on 12/14/21 08:52; Start 12/13/21 at 10:00 Glimepiride (Amaryl) 4 mg BID PO Last administered on 12/14/21 08:53; Start 12/13/21 at 10:00 Insulin Glargine (Lantus Syringe) 35 unit QHS SQ Last administered on 12/13/21at 21:29; Start 12/13/21 at 21:00 Insulin Human Lispro (HumaLOG VIAL for OP,RR ONLY) TIDWMEALS SQ ; Start 12/13/21 at 12:00; Stop 12/13/21 at 12:51; Status DC Insulin Human Lispro (HumaLOG) 0-5 UNITS TIDWMEALS SQ ; Start 12/13/21 at 12:00 Lactobacillus Rhamnosus (Culturelle) 1 cap BID PO Last administered on 12/14/21at 08:51; Start 12/13/21 at 21:00 Lidocaine (Lidoderm) 1 patch DAILY TD Last administered on 12/14/21at 09:06; Start 12/13/21 at 10:00 Linagliptin (Tradjenta) 5 mg DAILY PO Last administered on 12/13/21at 12:12; Start 12/13/21 at 10:00 Lisinopril (Prinivil) 40 mg DAILY PO Last administered on 12/13/21 12:13; Start 12/13/21 at 10:00 Metformin HCl (Glucophage) 1,000 mg BIDWMEALS PO Last administered on 12/14/21at 08:46; Start 12/13/21 at 17:00 Miscellaneous (Lidoderm Patch Removal) 1 ea QHS MC Last administered on 12/13/21at 21:00; Start 12/13/21 at 21:00 Non-Formulary Medication (Dulaglutide (Trulicity)) 0.5 mg WEEKLY SQ ; Start 12/20/21 at 09:00; Status UNV Non-Formulary Medication (Sitagliptin Phosphate (Januvia)) 100 mg DAILY PO ; Start 12/14/21 at 09:00; Status UNV Polyethylene Glycol (miraLAX PACKET) 17 gm BID PO Last administered on 12/14/21at 08:56; Start 12/13/21 at 10:00 Polyethylene Glycol (miraLAX PACKET) 17 gm DAILY PO ; Start 12/13/21 at 10:00; Stop 12/13/21 at 12:51; Status DC Quetiapine Fumarate (SEROquel) 800 mg HS PO Last administered on 12/13/21at 21:13; Start 12/13/21 at 21:00 Senna/Docusate Sodium (Senna Plus) 2 tab DAILYWBKFT PO Last administered on 12/14/21at 08:53; Start 12/13/21 at 10:00 Tamsulosin HCl (Flomax) 0.4 mg QHS PO Last administered on 12/13/21at 21:12; Start 12/13/21 at 21:00 Triamterene/HCTZ (Maxzide 37.5/ 25mg) 1 tab DAILY PO Last administered on at 08:55; Start 12/13/21 at 10:00 Vancomycin HCl (Vancomycin Trough Level) 1 each 1X ONCE MC ; Start 12/14/21 at 10:30; Stop 12/14/21 at 10:31; Status Cancel Vancomycin HCl 1.75 gm/Sodium Chloride 500 ml @ 250 mls/hr Q12H IV ; Start 12/13/21 at 11:00; Stop 12/13/21 at 09:21; Status DC Vitals/I & O Vital Sign - Last 24 Hours 12/13/21 12/13/21 12/13/21 12/13/21 11:00 12:12 12:13 15:00 Temp 97.9 98.4 97.9 98.4 Pulse 101 101 101 100 Resp 18 16 B/P (MAP) 110/62 (78) 110/62 110/62 114/66 (82) Pulse Ox 92 94 O2 Delivery Room Air Room Air 12/13/21 12/13/21 12/13/21 12/14/21 19:40 20:00 23:00 00:00 Temp 97.7 98.4 97.7 98.4 Pulse 82 78 Resp 20 20 20 B/P (MAP) 110/86 (94) 118/56 (76) Pulse Ox 94 92 94 O2 Delivery Room Air Room Air Room Air Room Air 12/14/21 12/14/21 12/14/21 00:30 02:17 07:00 Temp 97.9 97.7 97.9 97.7 Pulse 89 94 Resp 20 14 14 B/P (MAP) 109/64 (79) 112/66 (81) Pulse Ox 94 92 92 O2 Delivery Room Air Room Air Room Air Intake and Output 12/13/21 12/13/21 12/14/21 15:00 23:00 07:00 Intake Total 0 ml Balance 0 ml Justifications for Admission Other Justification JASMIN CHO MD Dec 14, 2021 09:20
[2021-12-14] MEDS ORDERED: AMOX1TAB11 PO (09:24)
[2021-12-14] MEDS ORDERED: TRIA15CR TP (09:24)
[2021-12-14 11:00] VITALS: BP 111/64
[2021-12-14 15:00] VITALS: BP 109/56
--- NOTE | 2021-12-17 11:10 | PDOC ---
Provider Note Date of Service: DATE: 12/17/21 TIME: 11:09 Provider Note Discharge summary dictated.#[id number]. Justifications for Admission Other Justification JASMIN CHO MD Dec 17, 2021 11:10
--- NOTE | 2021-12-17 12:07 | DS ---
DATE OF DISCHARGE: 12/14/2021 REASON FOR ADMISSION TO THE HOSPITAL: Leg cellulitis. CONSULTATIONS: None. PROCEDURES DONE: Venous and arterial Doppler of lower extremities. HOSPITAL COURSE: The patient is a 61-year-old male with history of chronic stasis dermatitis, had pain in the leg, was seen in the Emergency Room, had a venous Doppler negative. Arterial Doppler, good blood flow. The patient had a redness in the leg below the knee, was given antibiotics, IV Ancef. The patient's condition improved. No fever. White count was normal and the patient was discharged on oral antibiotics and cortisone cream. Other conditions remained stable. FINAL DIAGNOSES: 1. Right leg cellulitis. 2. Chronic venous stasis with exacerbation. 3. Diabetes, insulin-dependent. 4. Morbid obesity. 5. Schizophrenia. DISPOSITION: Home and continue compression wraps, cream, cortisone cream and oral antibiotics. We will see in the office in [address]: Flor TID: [id number]
[2021-12-20] MEDS ORDERED: DULAGLUTIDE 0.5 MG SQ SCH (09:00)
== END 2021-12-14 15:25 | disposition home or self-care (01) | DRG 603 ==
LOC: ER 20:36 → 4 NORTH 22:40 → UNDOADMIN 22:40 → 4 NORTH 12-13 01:07 → UNDODISIN 12-14 15:25
PROVIDERS: ADMIT Internal Medicine; ATTEND Internal Medicine
DX: L03.115 Cellulitis of right lower limb (principal); Z68.41 Body mass index [BMI] 40.0-44.9, adult; E11.9 Type 2 diabetes mellitus without complications; E66.01 Morbid (severe) obesity due to excess calories; E78.00 Pure hypercholesterolemia, unspecified; E78.5 Hyperlipidemia, unspecified; F20.9 Schizophrenia, unspecified; I10 Essential (primary) hypertension; I87.2 Venous insufficiency (chronic) (peripheral); I87.8 Other specified disorders of veins; N40.0 Benign prostatic hyperplasia without lower urinary tract symptoms; Z79.4 Long term (current) use of insulin; Z87.891 Personal history of nicotine dependence; Z87.01 Personal history of pneumonia (recurrent)
CPT/HCPCS: 36415; 71045; 80053; 82962; 83605; 83735; 83880; 84484; 85025; 87040; 93005; 93925; 93970; 96365; 96366; J0690; J1815; J3370; J7040; 97535-GO; 99285-25; G0378

== ENCOUNTER → 2022-01-13 | Outpatient (CLI) | payer OTHER, MEDICAID ==
[2021-12-14 15:00] VITALS: BP 109/56
[~2022-01-13] MED LIST changes: +ACET1TAB56 PO; +AMOX1TAB11 PO; +FURO40TA4 PO; +TRIA15CR TP
--- NOTE | 2022-01-13 16:59 | RAD ---
MR#: [id number] Date of Study: 01/13/2022 Ordering Physician: GRADY CASTILLO, Referring Physician: GRADY CASTILLO, Tech: Antonio Biggs MBA, RDMS, RVT, RDCS, RTR APPROVED REPORT Patient Location : OUT-PATIENT Indications ACUTE STASIS DERMAITIS Perforators Thigh Perforators Left: cm up from knee crease 18cm back from the anterior border of femur 8 diameter 1.8mm. Calf Perforators Findings Limited grayscale images of the saphenofemoral junctions are grossly unremarkable. The right and left greater saphenous veins do not demonstrate any evidence of reflux. No significant reflux in the bilateral lesser saphenous veins. Critical Notification Critical Value: No <Conclusion> 1. Negative for reflux in the bilateral greater and lesser saphenous veins. Signed by : Grady Castillo, Electronically Approved : 01/13/2022 16:59:08
== END ==
LOC: US 14:32
PROVIDERS: ATTEND Internal Medicine Cardiovascular Disease
DX: I87.2 Venous insufficiency (chronic) (peripheral) (principal)
CPT/HCPCS: 93970

== ENCOUNTER → 2022-02-17 | Outpatient (CLI) | payer OTHER, MEDICAID ==
[2022-02-17 07:23] LABS: BASO % 1 % (0-3); EOS # 0.2 x10^3/uL (0.0-0.7); EOS % 4 % (0-3); HEMATOCRIT 36.9 % (39.0-53.0); HEMOGLOBIN 12.3 g/dL (13.0-17.5); LYMPH # 1.6 x10^3/uL (1.0-4.8); LYMPH % 36 % (24-48); MEAN CORPUSCULAR HEMOGLOBIN 28 pg (25-35); MEAN CORPUSCULAR HGB CONC 33 g/dL (31-37); MEAN CORPUSCULAR VOLUME 83 fL (79-100); MONO # 0.5 x10^3/uL (0.0-1.1); MONO % 12 % (0-9); NEUT % 47 % (31-73); PLATELET COUNT 141 x10^3/uL (140-400); RED BLOOD COUNT 4.43 x10^6/uL (4.30-5.70); RED CELL DISTRIBUTION WIDTH 15.6 % (11.5-14.5); WHITE BLOOD COUNT 4.3 x10^3/uL (4.0-11.0)
[2022-02-17 07:29] LABS: ANION GAP 9 (6-14); BLOOD UREA NITROGEN 19 mg/dL (8-26); CALCIUM 9.2 mg/dL (8.5-10.1); CARBON DIOXIDE 24 mmol/L (21-32); CHLORIDE 105 mmol/L (98-107); CHOLESTEROL 153 mg/dL (0-200); CREATININE 0.7 mg/dL (0.7-1.3); GLUCOSE 152 mg/dL (70-99); HDLC 52 mg/dL (40-60); LDLC 70 mg/dL (0-100); POTASSIUM 3.8 mmol/L (3.5-5.1); SODIUM 138 mmol/L (136-145); TRIGLYCERIDES 157 mg/dL (0-150); VLDLC 31 mg/dL (0-40)
[2022-02-17 07:32] LABS: CHOLESTEROL/HDL RATIO 2.9; VAL ACID 65 mcg/mL (50-100)
[2022-02-17 13:12] LABS: % EOS 4 % (0-5); % LYMPHS 35 % (24-48); % MONOS 11 % (0-10); % SEGS 50 % (35-66); PLT ESTIMATE ADEQUATE (ADEQUATE)
[2022-02-18 02:13] LABS: HEMOGLOBIN A1C 7.5 % (4.8-5.6)
== END ==
LOC: LAB 06:40
PROVIDERS: ATTEND Psychiatry & Neurology Psychiatry
DX: F25.0 Schizoaffective disorder, bipolar type (principal); Z79.899 Other long term (current) drug therapy
CPT/HCPCS: 36415; 80048; 80061; 80164; 83036; 84146; 85007; 85025